=== PATIENT | female | born 1950 | race African-American/Black ===

== ENCOUNTER 2017-07-07 10:55 | Inpatient (IN) | payer MEDICARE ==
[~2017-07-07] VITALS: Ht 162.6 cm; Wt 71.3 kg
[~2017-07-07 10:55] MED LIST: ASPI81TA82 PO; ATOR40TA49 PO; CIPR1TAB50 PO; DOCU1CAP39 PO; LEVEMIR SQ; LISI-360 PO; NOVOLOGSS SQ; SYNT88TA PO; TIMO0.5S29 EACH EYE
[2017-07-07 10:57] VITALS: BP 193/84; PULSE 93; RESP 16; TEMP 98.4; O2SAT 100
[2017-07-07] MEDS ORDERED: SODIUM CHLORIDE 0.9% FLUSH 10 ML FLUSH IVF PRN (11:30)
[2017-07-07 12:18] LABS: AUTOMATED NEUTROPHIL # 3.3 TH/MM3 (1.8-7.7); BASOPHIL % 0.7 % (0.0-2.0); EOSINOPHIL # 0.2 TH/MM3 (0-0.4); EOSINOPHIL % 3.7 % (0.0-4.0); HEMATOCRIT 34.4 % (35.0-46.0); HEMOGLOBIN 11.5 GM/DL (11.6-15.3); LYMPH % 28.1 % (9.0-44.0); LYMPHOCYTE # 1.5 TH/MM3 (1.0-4.8); MEAN CELL VOLUME 92.3 FL (80.0-100.0); MEAN CORPUSCULAR HEMOGLOBIN 30.8 PG (27.0-34.0); MEAN CORPUSCULAR HGB CONC 33.4 % (32.0-36.0); MONO % 4.8 % (0.0-8.0); MONOCYTE # 0.3 TH/MM3 (0-0.9); NEUT % 62.7 % (16.0-70.0); PLATELET COUNT 142 TH/MM3 (150-450); RED BLOOD COUNT 3.73 MIL/MM3 (4.00-5.30); RED CELL DISTRIBUTION WIDTH 14.4 % (11.6-17.2); WHITE BLOOD COUNT 5.3 TH/MM3 (4.0-11.0)
[2017-07-07 12:26] LABS: PROTHROMBIN TIME - PATIENT 10.5 SEC (9.8-11.6)
--- NOTE | 2017-07-07 12:34 | RADRPT ---
EXAM DATE/TIME: 07/07/2017 12:12 [facility] COMPARISON: MRI BRAIN W/O CONTRAST, September 07, 2014, 16:05. CT BRAIN W/O CONTRAST, September 07, 2014, 6:34. INDICATIONS : Increasing slurred speech. History of cerebral vascular accident 2015 involving the left parietal lob e. RADIATION DOSE: 36.48 CTDIvol (mGy) MEDICAL HISTORY : Cerebrovascular disease. Congestive heart failure. Hypertension.Pancreatitis, Diabetes.CVA SURGICAL HISTORY : Tubal ligation. ENCOUNTER: Initial ACUITY: 3 days PAIN SCALE: 0/10 LOCATION: cranial TECHNIQUE: Multiple contiguous axial images were obtained of the head. Using automated exposure control and adj ustment of the mA and/or kV according to patient size, radiation dose was kept as low as reasonably a chievable to obtain optimal diagnostic quality images. DICOM format image data is available electro nically for review and comparison. FINDINGS: ` There is a focal area of decreased attenuation are noted involving the posterior right frontal lobe and anterior parietal lobe which appears new from the prior study. Patchy periventricular white matter lucencies are noted. There is mild to moderate atrophic change. Dense calcification is noted a long the anterior [place]. The posterior fossa and brainstem remain unremarkable. Ventricular system is within normal limits. Bone windows demonstrate no underlying abnormality. CONCLUSION: 1. New area decreased attenuation involving the right posterior frontal and anterior parietal lobe mo st consistent with edema which could be secondary to infarction. MRI is recommended. 2. No evidence of hemorrhage or mass effect. 3. Chronic white matter changes. Tristen Sandoval MD on July 07, 2017 at 12:22 Board Certified Radiologist. This report was verified electronically.
[2017-07-07 12:39] LABS: ALKALINE PHOSPHATASE 65 U/L (45-117); TOTAL BILIRUBIN ADULT 0.6 MG/DL (0.2-1.0); TOTAL PROTEIN 8.3 GM/DL (6.4-8.2)
[2017-07-07 12:48] LABS: ALBUMIN 4.2 GM/DL (3.4-5.0); ALT (GPT) 34 U/L (10-53); AST (GOT) 38 U/L (15-37); BICARBONATE 27.8 MEQ/L (21.0-32.0); BLOOD UREA NITROGEN 18 MG/DL (7-18); CALCIUM 8.8 MG/DL (8.5-10.1); CHLORIDE 105 MEQ/L (98-107); GLOMERULAR FILTRATION RATE 42 ML/MIN (>89); GLUCOSE,RANDOM 78 MG/DL (74-106); SODIUM (NA) 139 MEQ/L (136-145)
--- NOTE | 2017-07-07 12:58 | PD ---
HPI Chief Complaint: Neuro Symptoms/ Deficits Time Seen by Provider: 11:10 Travel History International Travel<30 days: No Contact w/Intl Traveler<30days: No Traveled to known affect area: No History of Present Illness HPI This is a 67-year-old female who has a history of a stroke in the past and is on Eliquis who presents to the emergency department with difficulty speaking that has been going on for about 3 days. She does not remember exactly when it started but she feels like her speech is slurred and she is having more difficulty getting her words out. Her has noticed a difference in her speech as well. Symptoms are moderate severity, constant, with no associated numbness or weakness and she has no difficulty walking. She did have speech difficulties following her last stroke. PFSH Past Medical History Hx Anticoagulant Therapy: Yes (ELIQUIS) Arthritis: Yes (LEFT KNEE, RIGHT SHOULDER.) Asthma: No Autoimmune Disease: No Blood Disorders: No Heart Rhythm Problems: No Cancer: No Cardiovascular Problems: No High Cholesterol: Yes Chemotherapy: No Chest Pain: Yes Congestive Heart Failure: Yes COPD: No Cerebrovascular Accident: Yes Coronary Artery Disease: Yes Diabetes: Yes Diminished Hearing: No Endocrine: Yes GERD: No Glaucoma: No Genitourinary: No Headaches: No Hepatitis: No Hiatal Hernia: No Hypertension: Yes Immune Disorder: No Kidney Stones: No Musculoskeletal: Yes (ARTHRITIS) Neurologic: Yes (CVA) Psychiatric: No Reproductive: No Respiratory: No Immunizations Current: No Myocardial Infarction: No Pancreatitis: Yes Radiation Therapy: No Renal Failure: No Seizures: No Sickle Cell Disease: No Sleep Apnea: No Thyroid Disease: Yes Triglycerides - High: Yes Ulcer: No PNEUMOCCOCAL Vaccine (Year): 2 Menopausal: Yes : 3 Para: 3 Miscarriage: 0 : 0 Tubal Ligation: Yes (1981) Past Surgical History Abdominal Surgery: Yes AICD: No Arteriovenous Shunt: No Cardiac Surgery: No Ear Surgery: No Endocrine Surgery: No Eye Surgery: No Genitourinary Surgery: No Gynecologic Surgery: No Insulin Pump: No Joint Replacement: No Oral Surgery: No Pacemaker: No Thoracic Surgery: No Social History Alcohol Use: No Tobacco Use: No Substance Use: No Allergies-Medications (Allergen,Severity, Reaction): Coded Allergies: latanoprost (Unverified Allergy, Severe, Swelling, 07/07/17) house dust (Unverified Allergy, Mild, CONGESTION, SNEEZING, 07/07/17) pollen extracts (Unverified Allergy, Mild, CONGESTION, SNEEZING, 07/07/17) Reported Meds & Prescriptions Reported Meds & Active Scripts Active Novolog Insulin Supplemental Scale (Insulin Aspart) 100 /Ml Inj 2-12 Units SQ TIDACHS Max dose at bedtime:( )units; sugars less than 70, (0)units; sugars 150-199, (2)units; sugars 200-249, (4)units; sugars 250-299,(7)units; sugars 300-349, (10)units; sugars greater than 349, (12)units Levemir Insulin (Insulin Detemir) 100 Units/Ml Inj 10 Units SQ DAILY 30 Days Levemir Insulin (Insulin Detemir) 100 Units/Ml Inj 10 Units SQ HS 30 Days Lipitor 40 Mg Tab (Atorvastatin Calcium) 40 Mg Tab 40 Mg PO HS 30 Days Colace 100 Mg Cap (Docusate Sodium) 100 Mg Cap 100 Mg PO BID 14 Days Cipro (Ciprofloxacin HCl) 250 Mg Tab 250 Mg PO Q12 5 Days Reported Aspir-81 (Aspirin) 81 Mg Tab 81 Mg PO DAILY Timolol Maleate 0.5 % Effie 1 Drop EACH EYE BID Lisinopril 10 mg (Lisinopril) 10 Mg Tab 5 Mg PO DAILY Synthroid (Levothyroxine Sodium) 88 Mcg Tab 125 Mcg PO DAILY Review of Systems Except as stated in HPI: all other systems reviewed are Neg Physical Exam Narrative GENERAL:Well appearing, no acute distress SKIN: Focused skin assessment warm and dry. HEAD: Atraumatic. Normocephalic. EYES: Pupils equal and round. No injection or drainage. ENT: Moist mucous membranes NECK: Trachea midline. CARDIOVASCULAR: Regular rate and rhythm. No murmur appreciated. RESPIRATORY: Clear to auscultation. Breath sounds equal bilaterally. GASTROINTESTINAL: Abdomen soft, non-tender, nondistended. MUSCULOSKELETAL: No obvious deformities. NEUROLOGICAL: Awake and alert. No obvious cranial nerve deficits. Moving all extremities. Moderate dysarthria, mild expressive aphasia. No visual field deficits. PSYCHIATRIC: Appropriate mood and affect; insight and judgment normal. Data Data Last Documented VS Vital Signs Date Time Temp Pulse Resp B/P (MAP) Pulse Ox O2 Delivery O2 Flow Rate FiO2 07/07/17 11:59 Room Air 07/07/17 10:57 98.4 93 16 100 Orders Orders Electrocardiogram (07/07/17 11:18) Prothrombin Time / Inr (Pt) (07/07/17 11:18) Act Partial Throm Time (Ptt) (07/07/17 11:18) Comprehensive Metabolic Panel (07/07/17 11:18) Ua Includes Microscopic (07/07/17 11:18) Ct Brain W/O Iv Contrast(Rout) (07/07/17 11:18) Ecg Monitoring (07/07/17 11:18) Iv Access Insert/Monitor (07/07/17 11:18) Oximetry (07/07/17 11:18) Sodium Chloride 0.9% Flush (Ns Flush) (07/07/17 11:30) Complete Blood Count With Diff (07/07/17 11:53) Labs Laboratory Tests Test 07/07/17 11:40 White Blood Count 5.3 TH/MM3 Red Blood Count 3.73 MIL/MM3 Hemoglobin 11.5 GM/DL Hematocrit 34.4 % Mean Corpuscular Volume 92.3 FL Mean Corpuscular Hemoglobin 30.8 PG Mean Corpuscular Hemoglobin Concent 33.4 % Red Cell Distribution Width 14.4 % Platelet Count 142 TH/MM3 Mean Platelet Volume 11.0 FL Neutrophils (%) (Auto) 62.7 % Lymphocytes (%) (Auto) 28.1 % Monocytes (%) (Auto) 4.8 % Eosinophils (%) (Auto) 3.7 % Basophils (%) (Auto) 0.7 % Neutrophils # (Auto) 3.3 TH/MM3 Lymphocytes # (Auto) 1.5 TH/MM3 Monocytes # (Auto) 0.3 TH/MM3 Eosinophils # (Auto) 0.2 TH/MM3 Basophils # (Auto) 0.0 TH/MM3 CBC Comment DIFF FINAL Differential Comment Prothrombin Time 10.5 SEC Prothromb Time International Ratio 1.0 RATIO Activated Partial Thromboplast Time 28.3 SEC Blood Urea Nitrogen 18 MG/DL Creatinine 1.50 MG/DL Random Glucose 78 MG/DL Total Protein 8.3 GM/DL Albumin 4.2 GM/DL Calcium Level 8.8 MG/DL Alkaline Phosphatase 65 U/L Aspartate Amino Transf (AST/SGOT) 38 U/L Alanine Aminotransferase (ALT/SGPT) 34 U/L Total Bilirubin 0.6 MG/DL Sodium Level 139 MEQ/L Potassium Level 4.8 MEQ/L Chloride Level 105 MEQ/L Carbon Dioxide Level 27.8 MEQ/L Anion Gap 6 MEQ/L Estimat Glomerular Filtration Rate 42 ML/MIN MDM Medical Decision Making Medical Screen Exam Complete: Yes Emergency Medical Condition: Yes Interpretation(s) Afebrile, mild tachycardia, hypertensive EKG: Normal sinus rhythm, left axis deviation Anemia Mild renal insufficiency CT of the head demonstrates a new area of decreased attenuation in the right posterior frontal and anterior parietal lobe suspicious for infarction. Differential Diagnosis Hemorrhagic stroke, ischemic stroke, urinary tract infection, dehydration, mass Narrative Course This is a 67-year-old female who presents to the emergency department with worsening speech difficulty. She was placed on a monitor and an IV was established. Labs are reassuring. CT demonstrates findings consistent with a likely new infarction. She is not a TPA candidate as her symptoms have been going on for several days. Patient will be admitted for neurologic evaluation. Diagnosis Primary Impression: Acute CVA (cerebrovascular accident) Admitting Information Admitting Physician Requests: Admit Stephanie Burnett MD Jul 07, 2017 12:58
[2017-07-07] MEDS ORDERED: ACETAMINOPHEN 325 MG TAB PO PRN (13:15)
[2017-07-07] MEDS ORDERED: ONDANSETRON HCL 4 MG/2 ML VIAL IVP PRN (13:15)
[2017-07-07] MEDS ORDERED: SODIUM CHLORIDE 0.9% FLUSH 10 ML FLUSH IV FLUSH PRN (13:15)
[2017-07-07] MEDS ORDERED: MAGNESIUM HYDROXIDE SUSP 30 ML CUP PO PRN (13:15)
[2017-07-07] MEDS ORDERED: NALOXONE HCL 0.4 MG/ML AMP IV PUSH PRN (13:15)
[2017-07-07] MEDS ORDERED: GLUCAGON 1 MG/ML VIAL OTHER PRN (13:30)
[2017-07-07] MEDS ORDERED: DEXTROSE 50% IN WATER 50 ML VIAL(D50) IV PUSH PRN (13:30)
[2017-07-07] MEDS ORDERED: ENALAPRILAT 1.25 MG/ML VIAL IV PUSH PRN (13:30)
--- NOTE | 2017-07-07 13:45 | RADRPT ---
EXAM DATE/TIME: 07/07/2017 13:23 [facility] COMPARISON: BA SWALLOW W/SPEECH PATHOLOGY, September 09, 2014, 0:00. INDICATIONS : Possible stroke, slurred speech 3 days. MEDICAL HISTORY : Stroke. SURGICAL HISTORY : None. ENCOUNTER: Initial ACUITY: 3 days PAIN SCORE: 0/10 LOCATION: Bilateral chest FINDINGS: A single view of the chest demonstrates the lungs to be symmetrically aerated without evidence of mas s, infiltrate or effusion. The cardiomediastinal contours are unremarkable. Osseous structures are intact. CONCLUSION: 1. Normal examination. Keenan Sprague MD on July 07, 2017 at 13:42 Board Certified Radiologist. This report was verified electronically.
[2017-07-07 14:15] VITALS: BP 126/80; PULSE 86; RESP 17; O2SAT 98
[2017-07-07] MEDS: 1/2 NS + KCL 20 MEQ INJ 1,000 ML IV SCH ×2 (14:16→19:43)
[2017-07-07 14:31] LABS: BACTERIA, URINE RARE /hpf; BILIRUBIN, URINE NEG (NEG); BLOOD, URINE NEG (NEG); GLUCOSE,URINE NEG (NEG); KETONE, URINE NEG (NEG); NITRITE,URINE NEG (NEG); PH, URINE 5.5 (5.0-8.5); SQUAMOUS EPITHELIAL CELL URINE 1 /hpf (0-5); URINE COLOR LIGHT-YELLOW (YELLW/STRAW); URINE LEUKOCYTE ESTERASE MOD (NEG)
[2017-07-07] MEDS ORDERED: ATOR80TA45 PO (14:56)
--- NOTE | 2017-07-07 14:59 | HHI.HP ---
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 Patient presents the emergency department today with complaints of slurred speech 3 days. 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 Patient reports she has been compliant with her Eliquis. Patient reports that since Monday she has been having slurred speech and difficulty with word finding. Other than the speech difficulties patient reports she feels to be in her normal state of health. Patient denies any focal weakness, headache or difficulty swallowing. Patient initially went to her primary care provider's office and was instructed to go to the emergency department patient refused EVAC and drive herself to the ER. Patient also denies shortness of breath chest pain nausea vomiting diarrhea constipation fevers or chills. Blood glucose 78 on arrival to the ER. Review of Systems Constitutional: DENIES: Fatigue, Fever, Chills Eyes: DENIES: Blurred vision, Diplopia, Vision loss Respiratory: DENIES: Cough, Sputum production, Shortness of breath Cardiovascular: DENIES: Chest pain, Dyspnea on Exertion, Lower Extremity Edema Gastrointestinal: DENIES: Abdominal pain, Constipation, Diarrhea, Nausea, Vomiting Neurologic: COMPLAINS OF: Speech Problems, DENIES: Abnormal gait, Headache, Localized weakness Psychiatric: DENIES: Anxiety, Confusion, Depression Past Family Social History Past Medical History chronic kidney disease stage 3, diabetes mellitus type 2, embolic CVA, hypothyroidism, hyperlipidemia, sickle cell trait Past Surgical History Anterior chamber laser left eye, breast biopsy, total abdominal hysterectomy Reported Medications Novolog Insulin Supplemental Scale (Insulin Aspart) 100 /Ml Inj 2-12 Units SQ TIDACHS Max dose at bedtime:( )units; sugars less than 70, (0)units; sugars 150-199, (2)units; sugars 200-249, (4)units; sugars 250-299,(7)units; sugars 300-349, (10)units; sugars greater than 349, (12)units Levemir Insulin (Insulin Detemir) 100 Units/Ml Inj 10 Units SQ DAILY 30 Days Levemir Insulin (Insulin Detemir) 100 Units/Ml Inj 10 Units SQ HS 30 Days Lipitor 40 Mg Tab (Atorvastatin Calcium) 40 Mg Tab 40 Mg PO HS 30 Days Colace 100 Mg Cap (Docusate Sodium) 100 Mg Cap 100 Mg PO BID 14 Days Cipro (Ciprofloxacin HCl) 250 Mg Tab 250 Mg PO Q12 5 Days Aspir-81 (Aspirin) 81 Mg Tab 81 Mg PO DAILY Timolol Maleate 0.5 % Effie 1 Drop EACH EYE BID Lisinopril 10 mg (Lisinopril) 10 Mg Tab 5 Mg PO DAILY Synthroid (Levothyroxine Sodium) 88 Mcg Tab 125 Mcg PO DAILY Allergies: Coded Allergies: latanoprost (Unverified Allergy, Severe, Swelling, 07/07/17) house dust (Unverified Allergy, Mild, CONGESTION, SNEEZING, 07/07/17) pollen extracts (Unverified Allergy, Mild, CONGESTION, SNEEZING, 07/07/17) Active Ordered Medications Current Medications Medications (Trade) Dose Ordered Sig/Jessie Route Start Time Stop Time Status Last Admin (NS Flush) 2 ml UNSCH PRN IV FLUSH 07/07/17 13:15 (NS Flush) 2 ml BID IV FLUSH 07/07/17 21:00 (Tylenol) 650 mg Q4H PRN PO 07/07/17 13:15 (Zofran Inj) 4 mg Q6H PRN IVP 07/07/17 13:15 (Narcan Inj) 0.4 mg UNSCH PRN IV PUSH 07/07/17 13:15 (Milk Of Magnesia Liq) 30 ml Q12H PRN PO 07/07/17 13:15 (Vasotec Inj) 1.25 mg Q4H PRN IV PUSH 07/07/17 13:30 Potassium Chloride/Sodium Chloride 1,000 ml @ 84 mls/hr [id number] IV 07/07/17 14:00 07/08/17 13:48 07/07/17 14:16 (NovoLOG SUPPLEMENTAL SCALE) 1 ACHS SLIDING SCALE SQ 07/07/17 17:00 (D50w (Vial) Inj) 50 ml UNSCH PRN IV PUSH 07/07/17 13:30 (Glucagon Inj) 1 mg UNSCH PRN OTHER 07/07/17 13:30 Family History Non-contributory Social History lives with Former tobacco user Denies current EtOH use Denies illicit drug use Physical Exam Vital Signs Vital Signs Date Time Temp Pulse Resp B/P (MAP) Pulse Ox O2 Delivery O2 Flow Rate FiO2 07/07/17 14:15 86 17 126/80 (95) 98 Room Air 07/07/17 11:59 Room Air 07/07/17 11:59 Room Air 07/07/17 10:57 98.4 93 16 193/84 (120) 100 Physical Exam GENERAL: This is a well-nourished, well-developed patient SKIN: No rashes, ecchymoses or lesions. Cool and dry. HEAD: Atraumatic. Normocephalic. No temporal or scalp tenderness. EYES: Extraocular motions intact. No scleral icterus. No injection or drainage. CARDIOVASCULAR: Regular rate and rhythm RESPIRATORY: Clear to auscultation. Breath sounds equal bilaterally. GASTROINTESTINAL: Abdomen soft, non-tender, nondistended. MUSCULOSKELETAL: Extremities without clubbing, cyanosis, or edema. No joint tenderness, effusion, or edema noted. No calf tenderness. Negative Homans sign bilaterally. NEUROLOGICAL: Awake and alert. Motor and sensory grossly within normal limits. 4 /5 right upper and lower extremities. Five out of 5 muscle strength in left upper and lower extremities. slurred speech Laboratory Laboratory Tests Test 07/07/17 11:40 07/07/17 14:00 White Blood Count 5.3 Red Blood Count 3.73 Hemoglobin 11.5 Hematocrit 34.4 Mean Corpuscular Volume 92.3 Mean Corpuscular Hemoglobin 30.8 Mean Corpuscular Hemoglobin Concent 33.4 Red Cell Distribution Width 14.4 Platelet Count 142 Mean Platelet Volume 11.0 Neutrophils (%) (Auto) 62.7 Lymphocytes (%) (Auto) 28.1 Monocytes (%) (Auto) 4.8 Eosinophils (%) (Auto) 3.7 Basophils (%) (Auto) 0.7 Neutrophils # (Auto) 3.3 Lymphocytes # (Auto) 1.5 Monocytes # (Auto) 0.3 Eosinophils # (Auto) 0.2 Basophils # (Auto) 0.0 CBC Comment DIFF FINAL Differential Comment Prothrombin Time 10.5 Prothromb Time International Ratio 1.0 Activated Partial Thromboplast Time 28.3 Blood Urea Nitrogen 18 Creatinine 1.50 Random Glucose 78 Total Protein 8.3 Albumin 4.2 Calcium Level 8.8 Alkaline Phosphatase 65 Aspartate Amino Transf (AST/SGOT) 38 Alanine Aminotransferase (ALT/SGPT) 34 Total Bilirubin 0.6 Sodium Level 139 Potassium Level 4.8 Chloride Level 105 Carbon Dioxide Level 27.8 Anion Gap 6 Estimat Glomerular Filtration Rate 42 Urine Color LIGHT-YELLOW Urine Turbidity CLEAR Urine pH 5.5 Urine Specific [place] 1.006 Urine Protein NEG Urine Glucose (UA) NEG Urine Ketones NEG Urine Occult Blood NEG Urine Nitrite NEG Urine Bilirubin NEG Urine Urobilinogen LESS THAN 2.0 Urine Leukocyte Esterase MOD Urine RBC LESS THAN 1 Urine WBC 8 Urine Squamous Epithelial Cells 1 Urine Bacteria RARE Microscopic Urinalysis Comment CATH Result Diagram: 07/07/17 1140 07/07/17 1140 Imaging Last Impressions Chest X-Ray 07/07/17 1312 Signed Impressions: Service Date/Time: Friday, July 07, 2017 13:23 - CONCLUSION: 1. Normal examination. Keenan Sprague MD Head CT 07/07/17 1118 Signed Impressions: Service Date/Time: Friday, July 07, 2017 12:12 - CONCLUSION: 1. New area decreased attenuation involving the right posterior frontal and anterior parietal lobe most consistent with edema which could be secondary to infarction. MRI is recommended. 2. No evidence of hemorrhage or mass effect. 3. Chronic white matter changes. MD Sury Smithi VTE Risk Assessment Caprini VTE Risk Assessment: No/Low Risk (score <= 1) Caprini Risk Assessment Model Point Value = 1 Point Value = 2 Point Value = 3 Point Value = 5 Age 41-60 Minor surgery BMI > 25 kg/m2 Swollen legs Varicose veins or History of unexplained or recurrent spontaneous Oral contraceptives or hormone replacement Sepsis (< 1 month) Serious lung disease, including pneumonia (< 1 month) Abnormal pulmonary function Acute myocardial infarction Congestive heart failure (< 1 month) History of inflammatory bowel disease Medical patient at bed rest Age 61-74 Arthroscopic surgery Major open surgery (> 45 min) Laparoscopic surgery (> 45 min) Malignancy Confined to bed (> 72 hours) Immobilizing plaster cast Central venous access Age >= 75 History of VTE Family history of VTE Factor V Leiden Prothrombin [id number] Lupus anticoagulant Anticardiolipin antibodies Elevated serum homocysteine Heparin-induced thrombocytopenia Other congenital or acquired thrombophilia Stroke (< 1 month) Elective arthroplasty Hip, pelvis, or leg fracture Acute spinal cord injury (< 1 month) Prophylaxis Regimen Total Risk Factor Score Risk Level Prophylaxis Regimen 0-1 Low Early ambulation 2 Moderate Order ONE of the following: *Sequential Compression Device (SCD) *Heparin 5000 units SQ BID 3-4 Higher Order ONE of the following medications: *Heparin 5000 units SQ TID *Enoxaparin/Lovenox 40 mg SQ daily (WT < 150 kg, CrCl > 30 mL/min) *Enoxaparin/Lovenox 30 mg SQ daily (WT < 150 kg, CrCl > 10-29 mL/min) *Enoxaparin/Lovenox 30 mg SQ BID (WT < 150 kg, CrCl > 30 mL/min) AND/OR *Sequential Compression Device (SCD) 5 or more Highest Order ONE of the following medications: *Heparin 5000 units SQ TID (Preferred with Epidurals) *Enoxaparin/Lovenox 40 mg SQ daily (WT < 150 kg, CrCl > 30 mL/min) *Enoxaparin/Lovenox 30 mg SQ daily (WT < 150 kg, CrCl > 10-29 mL/min) *Enoxaparin/Lovenox 30 mg SQ BID (WT < 150 kg, CrCl > 30 mL/min) AND *Sequential Compression Device (SCD) Assessment and Plan Problem List: (1) CVA (cerebral vascular accident) ICD Codes: I63.9 - Cerebral infarction, unspecified Plan: This is a 67-year-old female patient with past medical history which includes chronic kidney disease stage 3, diabetes mellitus type 2, embolic CVA, hypothyroidism, hyperlipidemia, sickle cell trait. Patient presents the emergency department today with complaints of slurred speech 3 days. 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 - CT reviewed and reveals new area of decreased attenuation involving the right posterior frontal and anterior parietal lobe was consistent with edema which could be secondary to infarction. MRI is recommended. No evidence of hemorrhage or mass effect. 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 Assessment and plan formulated with Carola Smith PA-C. I agree with the above. Physician Certification 2 Midnight Certification Type: Admission for Inpatient Services Order for Inpatient Services The services are ordered in accordance with Medicare regulations or non- Medicare payer requirements, as applicable. In the case of services not specified as inpatient-only, they are appropriately provided as inpatient services in accordance with the 2-midnight benchmark. Estimated LOS (days): 2 days is the estimated time the patient will need to remain in the hospital, assuming treatment plan goals are met and no additional complications. Post-Hospital Plan: Not yet determined Carola Smith Jul 07, 2017 14:59 Prince Kaba DO Jul 11, 2017 23:15
--- NOTE | 2017-07-07 15:37 | RADRPT ---
EXAM DATE/TIME: 07/07/2017 15:08 [facility] COMPARISON: No previous studies available for comparison. INDICATIONS : Slurred speech. MEDICAL HISTORY : Hypertension. Diabetes mellitus type 2. CVA. SURGICAL HISTORY : Rotator cuff, left. Tubal ligation. ENCOUNTER: Initial ACUITY: 1 day PAIN SCORE: 0/10 LOCATION: cranial Please note a normal MRA of the brain does not entirely exclude the possibility of a small aneurysm, nor the possibility of distal intracranial vessel disease. TECHNIQUE: 3D time of flight MRA was performed. Source images, multiplanar STS MIP, and 3D volume MIP reconstru ctions were reviewed. FINDINGS: There is excellent visualization of the major intracranial arteries out to the second-order branch ve ssels. There is no evidence for aneurysm, vessel truncation or stenosis, and no evidence for vascula r malformation. The right posterior cerebral artery arises in fashion. CONCLUSION: No acute [place] vascular findings. Martinez Goode MD on July 07, 2017 at 15:33 Board Certified Radiologist. This report was verified electronically.
--- NOTE | 2017-07-07 16:11 | RADRPT ---
EXAM DATE/TIME: 07/07/2017 15:20 [facility] COMPARISON: US CAROTID ARTERIES, September 06, 2014, 19:40. INDICATIONS : Cerebrovascular accident. MEDICAL HISTORY : Congestive heart failure. Hypercholesterolemia. Hypertension. Thyroid disease. Hearing loss. Cerebrov ascular accident. Coronary artery disease. Anticoagulant therapy. Hyperlipidemia. Pancreatitis. Pregn calixto. Arthritis. Diabetes. Measles. Blood transfusion. SURGICAL HISTORY : Tubal ligation. Left shoulder surgery. ENCOUNTER: Initial ACUITY: 3 days PAIN SCORE: 0/10 LOCATION: Bilateral neck PEAK SYSTOLIC VELOCITIES (cm/sec): ICA/CCA RATIO: Right: 1.0 Left: 0.7 ICA: Right: 78 Left: 78 CCA: Right: 74 Left: 108 ECA: Right: 48 Left: 87 VERTEBRAL: Right: 69 antegrade Left: 46 antegrade Elevated flow velocities and ICA/CCA ratios have been found to correlate with increased degrees of vessel stenosis, calculated as percentage of diameter relative to a normal segment of distal ICA/CCA FINDINGS: RIGHT CAROTID: No significant stenosis is visualized. The waveforms are within normal limits. LEFT CAROTID: There is very mild atherosclerotic plaque in the carotid bulb. No significant stenosis is visualized. The waveforms are within normal limits. VERTEBRAL ARTERIES: Antegrade flow is seen in both vertebral arteries. MISCELLANEOUS: None. CONCLUSION: 1. No significant atherosclerotic disease or stenosis is identified within either internal carotid ar colette. 2. There is antegrade flow within both vertebral arteries. Martinez Argueta MD on July 07, 2017 at 16:08 Board Certified Radiologist. This report was verified electronically.
[2017-07-07 16:19] VITALS: BP 132/63; PULSE 84; RESP 18; O2SAT 100
--- NOTE | 2017-07-07 16:21 | RADRPT ---
EXAM DATE/TIME: 07/07/2017 15:08 [place] COMPARISON: MRI BRAIN W/O CONTRAST, September 06, 2014, 17:24. CT BRAIN W/O CONTRAST, July 07, 2017, 12:12. INDICATIONS : Slurred speech. MEDICAL HISTORY : Hypertension. Diabetes mellitus type 2. SURGICAL HISTORY : Rotator cuff, left. Tubal ligation. ENCOUNTER: Initial ACUITY: 1 day PAIN SCORE: 0/10 LOCATION: cranial TECHNIQUE: Routine protocol without contrast FINDINGS: Again noted is dispersed microvascular deep white matter periventricular demyelinization with flair a bnormalities T2-weighted abnormality in these regions. Additionally there is a similar area in the gr ay-white matter cortex of the left posterior parietal region over a 1/2 cm region. The new area seen on CT scan a low density has a definite diffusion abnormality involving senior-white matter posterior r ight frontal parietal region consistent with an acute stroke. CONCLUSION: Findings correlative with CT scan acute stroke diffusion abnormality in the right posterior frontal p arietal region involving senior-white matter. There may be a second faint area slightly posterior to th is in the parietal region of senior-white matter junction subtle infarct. Venkatesh Joseph MD on July 07, 2017 at 16:14 Board Certified Radiologist. This report was verified electronically.
[2017-07-07 17:31] VITALS: BP 146/67; PULSE 83; RESP 19; TEMP 97.8; O2SAT 97
[2017-07-07] MEDS: INSULIN ASPART SUPPLEMENTAL SCALE SQ SCH ×2 (17:45→21:00)
[2017-07-07] MEDS ORDERED: WARFARIN SOD 5 MG TAB PO SCH (20:00)
[2017-07-07 21:00] VITALS: BP 140/61; PULSE 86; RESP 17; TEMP 97.1; O2SAT 99
[2017-07-07] MEDS: SODIUM CHLORIDE 0.9% FLUSH 10 ML FLUSH IV FLUSH SCH (21:00)
--- NOTE | 2017-07-07 21:04 | MB ---
cc: RAFFI CLIFFORD MD DATE OF CONSULTATION 07/07/17 A 67-year-old right-handed woman with hypertension, insulin diabetes, hypercholesterolemia, 81 of aspirin, chronic renal insufficiency takes Eliquis twice a day, hypothyroidism who had a stroke in 2014 which affected her speech. She did not get quite back to normal but pretty good and then since last Monday she developed increased slurred speech and came into the hospital today. REVIEW OF SYSTEMS She denies any known A, fib, hepatic, pulmonary disease, lupus, ulcer, cancer, seizure. SOCIAL HISTORY Not a smoker or drinker, lives with her . FAMILY HISTORY Positive for cancer, negative for seizure or stroke. She was seen by Dr. Werner in 2015 lightheadedness, slurred speech, facial droop, multiple episodes. She got TPA. Evidently, she has been taking the Eliquis at home. She says she has not missed any doses. MEDICATIONS At home, 1. Synthroid. 2. Lisinopril. 3. Timolol 4. 81 of aspirin. 5. Cipro. 6. Colace. 7. Lipitor 8. Insulin. 9. Unfortunately Eliquis dose is not listed in the ER notes. There is some history of sickle cell trait. I did however talk to her and in fact she was on Eliquis 5 mg twice a day and appears to have been taking her meds regularly. On exam afebrile 83, 19. Unfortunately there is no EKG printed on the chart. No tele strips on the chart and the EKG on the computer says sinus rhythm, however. PHYSICAL EXAMINATION 146/67, 19, 83 afebrile. Highest blood pressure 193/84. There were no carotid bruits. Heart was regular rhythm. I did not detect a murmur. Pupils are equal. Visual quintana are full. Extraocular movements intact without nystagmus. Face moves symmetrically with normal sensation. Tongue was midline. There is no drift. She had normal strength in upper and lower extremities bilaterally. DTRs are trace throughout. Toes are downgoing bilaterally. Pinprick is intact throughout. Speech is slurred but not aphasic, slightly dysarthric. LABORATORY DATA CBC is essentially normal. Hepatitis screen has been negative in the past. She had a normal IPEP in the past. Rheumatoid factor, LIZETTE all normal in the past. Thyroid antibodies have been quite high in the past. UA on admission here - moderate leuko esterase, eight white cells. Coags were normal. Basic metabolic profile creatinine 1.5. LFTs essentially normal. She had negative SPEP in the past. LDL cholesterol was normal in 2014. B12 was normal in 2012. Her sed rate was normal in 2003. IMAGING STUDIES MRI of the brain shows an acute right MCA infarct and an old left MCA infarct. There is a little bit of blood change on the old left one. CT scan showed the new right stroke. No evidence for hemorrhage. Carotid ultrasound negative. She had an MRA [place] in 2014 that was normal. She had an echocardiogram in 2014 that showed an ejection fraction of 45-50%, diffuse hypokinesis. No mitral stenosis was noted. No aortic stenosis was noted. Left atrial size 31. No Holter monitor noted. IMPRESSION Multiple infarcts bilateral now. There is a new right MCA infarct, an old left MCA infarct and an old right posterior MCA infarct. At this point, I think since she failed the Eliquis options will be Pradaxa or Coumadin. I think considering the size of this new infarct, we will stop the Eliquis and start her on Coumadin. She needs a speech evaluation before she eats anymore. MD JODEE Castro/ /6:34 PM /8:25 PM
[2017-07-07] MEDS: HEPARIN SODIUM - SQ 10,000 UNITS/ML VIAL SQ SCH (22:08)
[2017-07-08] VITALS (7 sets, daily range): BP systolic 134–151; BP diastolic 67–70; PULSE 80–89; RESP 18; TEMP 97.4–98.8; O2SAT 98–100
[2017-07-08 06:23] LABS: AUTOMATED NEUTROPHIL # 2.3 TH/MM3 (1.8-7.7); BASOPHIL % 0.9 % (0.0-2.0); EOSINOPHIL # 0.2 TH/MM3 (0-0.4); EOSINOPHIL % 4.2 % (0.0-4.0); HEMATOCRIT 32.1 % (35.0-46.0); HEMOGLOBIN 10.8 GM/DL (11.6-15.3); LYMPH % 32.2 % (9.0-44.0); LYMPHOCYTE # 1.3 TH/MM3 (1.0-4.8); MEAN CELL VOLUME 91.6 FL (80.0-100.0); MEAN CORPUSCULAR HEMOGLOBIN 30.9 PG (27.0-34.0); MEAN CORPUSCULAR HGB CONC 33.8 % (32.0-36.0); MEAN PLATELET VOLUME 10.7 FL (7.0-11.0); MONO % 5.1 % (0.0-8.0); MONOCYTE # 0.2 TH/MM3 (0-0.9); NEUT % 57.6 % (16.0-70.0); PLATELET COUNT 128 TH/MM3 (150-450); RED BLOOD COUNT 3.51 MIL/MM3 (4.00-5.30); RED CELL DISTRIBUTION WIDTH 13.8 % (11.6-17.2); WHITE BLOOD COUNT 4.1 TH/MM3 (4.0-11.0)
[2017-07-08 06:39] LABS: PROTHROMBIN TIME - PATIENT 10.6 SEC (9.8-11.6)
[2017-07-08 06:46] LABS: BICARBONATE 26.8 MEQ/L (21.0-32.0); CALCIUM 8.6 MG/DL (8.5-10.1); CREATININE 1.34 MG/DL (0.50-1.00)
[2017-07-08 06:57] LABS: CHOLESTEROL/ HDL RATIO 3.45 RATIO; FREE T4 1.22 NG/DL (0.76-1.46); HDL CHOLESTEROL 37.6 MG/DL (40.0-60.0)
[2017-07-08] MEDS: INSULIN ASPART SUPPLEMENTAL SCALE SQ SCH ×4 (08:00→20:32)
[2017-07-08] MEDS: SODIUM CHLORIDE 0.9% FLUSH 10 ML FLUSH IV FLUSH SCH ×2 (09:00→20:32)
[2017-07-08] MEDS: HEPARIN SODIUM - SQ 10,000 UNITS/ML VIAL SQ SCH ×2 (09:24→20:32)
--- NOTE | 2017-07-08 09:28 | HHI.PR ---
Subjective Remarks sr Objective Vital Signs Date Time Temp Pulse Resp B/P (MAP) Pulse Ox O2 Delivery O2 Flow Rate FiO2 07/08/17 08:00 97.4 80 18 142/67 (92) 100 07/08/17 05:40 97.6 80 18 134/68 (90) 99 07/08/17 00:00 98.8 89 18 139/69 (92) 98 07/07/17 21:00 97.1 86 17 140/61 (87) 99 07/07/17 17:31 97.8 83 19 146/67 (93) 97 07/07/17 16:19 84 18 132/63 (86) 100 Room Air 07/07/17 14:15 86 17 126/80 (95) 98 Room Air 07/07/17 11:59 Room Air 07/07/17 11:59 Room Air 07/07/17 10:57 98.4 93 16 193/84 (120) 100 I/O 07/07/17 07/07/17 07/07/17 07/08/17 07/08/17 07/08/17 07:00 15:00 23:00 07:00 15:00 23:00 Intake Total 0 ml 0 ml Balance 0 ml 0 ml Intake Oral 0 ml 0 ml # Voids 0 1 # Bowel Movements 0 0 Result Diagram: 07/08/17 0608 07/08/17 0608 Objective Remarks 5/5 speech a little clearer Assessment and Plan Assessment and Plan imp failed 5 bid eliquis so now on coumadin bilat cva left old r new us and cow neg can dc when inr 2.0 7.5 coumadin today inr 1.0 oob ok Darion Holm MD Jul 08, 2017 09:28
[2017-07-08] MEDS: DEXT 5%-NACL 0.45% 1000 ML INJ 1,000 ML IV SCH ×2 (09:45→22:17)
[2017-07-08] MEDS ORDERED: PNEUMOCOCCAL POLYVALENT INJ 25 MCG/0.5 ML SYR IM ONE (10:00)
--- NOTE | 2017-07-08 14:11 | HHI.PR ---
Subjective Remarks Patient reports feeling better today Speech is better than yesterday but not yet back to baseline Objective Vitals Vital Signs Date Time Temp Pulse Resp B/P (MAP) Pulse Ox O2 Delivery O2 Flow Rate FiO2 07/08/17 12:00 97.7 83 18 137/68 (91) 100 07/08/17 11:47 84 07/08/17 08:00 97.4 80 18 142/67 (92) 100 07/08/17 05:40 97.6 80 18 134/68 (90) 99 07/08/17 00:00 98.8 89 18 139/69 (92) 98 07/07/17 21:00 97.1 86 17 140/61 (87) 99 07/07/17 17:31 97.8 83 19 146/67 (93) 97 07/07/17 16:19 84 18 132/63 (86) 100 Room Air 07/07/17 14:15 86 17 126/80 (95) 98 Room Air Result Diagram: 07/08/17 0608 07/08/17 1015 Other Results Laboratory Tests Test 07/07/17 11:40 07/07/17 14:00 07/08/17 06:08 07/08/17 10:15 White Blood Count 5.3 TH/MM3 4.1 TH/MM3 Red Blood Count 3.73 MIL/MM3 3.51 MIL/MM3 Hemoglobin 11.5 GM/DL 10.8 GM/DL Hematocrit 34.4 % 32.1 % Mean Corpuscular Volume 92.3 FL 91.6 FL Mean Corpuscular Hemoglobin 30.8 PG 30.9 PG Mean Corpuscular Hemoglobin Concent 33.4 % 33.8 % Red Cell Distribution Width 14.4 % 13.8 % Platelet Count 142 TH/MM3 128 TH/MM3 Mean Platelet Volume 11.0 FL 10.7 FL Neutrophils (%) (Auto) 62.7 % 57.6 % Lymphocytes (%) (Auto) 28.1 % 32.2 % Monocytes (%) (Auto) 4.8 % 5.1 % Eosinophils (%) (Auto) 3.7 % 4.2 % Basophils (%) (Auto) 0.7 % 0.9 % Neutrophils # (Auto) 3.3 TH/MM3 2.3 TH/MM3 Lymphocytes # (Auto) 1.5 TH/MM3 1.3 TH/MM3 Monocytes # (Auto) 0.3 TH/MM3 0.2 TH/MM3 Eosinophils # (Auto) 0.2 TH/MM3 0.2 TH/MM3 Basophils # (Auto) 0.0 TH/MM3 0.0 TH/MM3 CBC Comment DIFF FINAL DIFF FINAL Differential Comment Prothrombin Time 10.5 SEC 10.6 SEC Prothromb Time International Ratio 1.0 RATIO 1.0 RATIO Activated Partial Thromboplast Time 28.3 SEC Blood Urea Nitrogen 18 MG/DL 17 MG/DL Creatinine 1.50 MG/DL 1.34 MG/DL Random Glucose 78 MG/DL 72 MG/DL 168 MG/DL Total Protein 8.3 GM/DL Albumin 4.2 GM/DL Calcium Level 8.8 MG/DL 8.6 MG/DL Alkaline Phosphatase 65 U/L Aspartate Amino Transf (AST/SGOT) 38 U/L Alanine Aminotransferase (ALT/SGPT) 34 U/L Total Bilirubin 0.6 MG/DL Sodium Level 139 MEQ/L 141 MEQ/L Potassium Level 4.8 MEQ/L 5.1 MEQ/L Chloride Level 105 MEQ/L 109 MEQ/L Carbon Dioxide Level 27.8 MEQ/L 26.8 MEQ/L Anion Gap 6 MEQ/L 5 MEQ/L Estimat Glomerular Filtration Rate 42 ML/MIN 48 ML/MIN Troponin I LESS THAN 0.02 NG/ML Urine Color LIGHT-YELLOW Urine Turbidity CLEAR Urine pH 5.5 Urine Specific [place] 1.006 Urine Protein NEG mg/dL Urine Glucose (UA) NEG mg/dL Urine Ketones NEG mg/dL Urine Occult Blood NEG Urine Nitrite NEG Urine Bilirubin NEG Urine Urobilinogen LESS THAN 2.0 MG/DL Urine Leukocyte Esterase MOD Urine RBC LESS THAN 1 /hpf Urine WBC 8 /hpf Urine Squamous Epithelial Cells 1 /hpf Urine Bacteria RARE /hpf Microscopic Urinalysis Comment CATH Triglycerides Level 355 MG/DL Cholesterol Level 130 MG/DL LDL Cholesterol 21 MG/DL HDL Cholesterol 37.6 MG/DL Cholesterol/HDL Ratio 3.45 RATIO Free Thyroxine 1.22 NG/DL Thyroid Stimulating Hormone 3rd Gen 0.462 uIU/ML Imaging Last Impressions Chest X-Ray 07/07/17 1312 Signed Impressions: Service Date/Time: Friday, July 07, 2017 13:23 - CONCLUSION: 1. Normal examination. Keenan Sprague MD Head CT 07/07/17 1118 Signed Impressions: Service Date/Time: Friday, July 07, 2017 12:12 - CONCLUSION: 1. New area decreased attenuation involving the right posterior frontal and anterior parietal lobe most consistent with edema which could be secondary to infarction. MRI is recommended. 2. No evidence of hemorrhage or mass effect. 3. Chronic white matter changes. Tristen Sandoval MD Objective Remarks GENERAL: This is a well-nourished, well-developed patient SKIN: No rashes, ecchymoses or lesions. Cool and dry. HEAD: Atraumatic. Normocephalic. No temporal or scalp tenderness. EYES: Extraocular motions intact. No scleral icterus. No injection or drainage. CARDIOVASCULAR: Regular rate and rhythm RESPIRATORY: Clear to auscultation. Breath sounds equal bilaterally. GASTROINTESTINAL: Abdomen soft, non-tender, nondistended. MUSCULOSKELETAL: Extremities without clubbing, cyanosis, or edema. No joint tenderness, effusion, or edema noted. No calf tenderness. Negative Homans sign bilaterally. NEUROLOGICAL: Awake and alert. Motor and sensory grossly within normal limits. 4 /5 right upper and lower extremities. Five out of 5 muscle strength in left upper and lower extremities. slurred speech A/P Problem List: (1) CVA (cerebral vascular accident) ICD Codes: I63.9 - Cerebral infarction, unspecified Plan: This is a 67-year-old female patient with past medical history which includes chronic kidney disease stage 3, diabetes mellitus type 2, embolic CVA, hypothyroidism, hyperlipidemia, sickle cell trait. Patient presents the emergency department today with complaints of slurred speech 3 days. 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 - CT reviewed and reveals new area of decreased attenuation involving the right posterior frontal and anterior parietal lobe was consistent with edema which could be secondary to infarction. MRI is recommended. No evidence of hemorrhage or mass effect. Chronic white matter changes - MRI Findings correlative with CT scan acute stroke diffusion abnormality in the right posterior frontal parietal region involving senior- white matter. There may be a second faint area slightly posterior to this in the parietal region of senior-white matter junction is subtle infarct - MRA no acute surgical bolus vascular findings - US bilateral carotid arteries no significant atherosclerotic disease or stenosis is identified within either internal carotid artery. There is antegrade flow within both vertebral arteries - echocardiogram pending - continuous telemetry monitoring - Lipid profile reviewed and reveals an LDL of 21 - PT consulted - Speech consulted mechanical soft thin liquids - Neurology consult: Patient seen by Dr. Holm, appreciated input - Neurology impression failed Eliquis recommendations Coumadin clear to discharge from neurology standpoint once INR 2.0 or above - Coumadin 7.5 daily repeat INR tomorrow (2) Hypothyroidism ICD Codes: E03.9 - Hypothyroidism Status: Acute Plan: awaiting medication rec (3) Diabetes mellitus type 2, insulin dependent ICD Codes: E11.9 - Diabetes mellitus type 2, insulin dependent; Z79.4 - senior living (current) use of insulin Status: Acute Plan: - Diabetic diet - Accu-Cheks before meals at bedtime with medium dose sliding scale insulin coverage (4) Hypertension ICD Codes: I10 - Hypertension Status: Acute Plan: hold oral antihypertensives at this time monitor BP Assessment and Plan Patient examined. Assessment and plan formulated with Carola Smith PA-C. I agree with the above. Carola Smith Jul 08, 2017 14:11 Prince Kaba DO Jul 11, 2017 23:15
--- NOTE | 2017-07-08 14:43 | EKG ---
Date Performed: 07/07/2017 Time Performed: 18:39:05 PTAGE: 67 years EKG: Sinus rhythm BORDERLINE LEFT AXIS DEVIATION BORDERLINE ECG Since PREVIOUS TRACING , no significant change noted PREVIOUS TRACIN07/07/2017 11.46 DOCTOR: Russ Waite Interpretating Date/Time 07/08/2017 14:42:34
--- NOTE | 2017-07-08 14:43 | EKG ---
Date Performed: 07/07/2017 Time Performed: 11:46:53 PTAGE: 67 years EKG: Sinus rhythm MARKED LEFT AXIS DEVIATION PATTERN CONSISTENT WITH PULMONARY DISEASE ABNORMAL ECG Since PREVIOUS TRACING , no significant change noted PREVIOUS TRACIN09/06/2014 14.00 DOCTOR: Russ Waite Interpretating Date/Time 07/08/2017 14:42:10
--- NOTE | 2017-07-08 14:55 | ECHRPT ---
Indication: cva/tia CONCLUSIONS Normal left ventricular size. The left ventricular systolic function is mildly reduced with an estimated ejection fraction in the range of 45- 50%. [id number] mitral valve regurgitation. No aortic valve regurgitation. No aortic valve stenosis. There is mild tricuspid valve regurgitation. The estimated pulmonary arterial pressure is 44.1 mmHg. BP: / HR: Rhythm: MEASUREMENTS (Male / Female) Normal Values Technical Quality:Fair 2D ECHO LV Diastolic Diameter PLAX 4.6 cm 4.2 - 5.9 / 3.9 - 5.3 cm LV Systolic Diameter PLAX 4.0 cm IVS Diastolic Thickness 1.4 cm 0.6 - 1.0 / 0.6 - 0.9 cm LVPW Diastolic Thickness 1.1 cm 0.6 - 1.0 / 0.6 - 0.9 cm LV Relative Wall Thickness 0.5 RV Internal Dim ED PLAX 2.4 cm M-MODE Aortic Root Diameter MM 3.0 cm LA Systolic Diameter MM 3.3 cm LA Ao Ratio MM 1.1 AV Cusp Separation MM 2.0 cm DOPPLER LV E' Lateral Velocity 5.7 cm/s LV E' Septal Velocity 4.4 cm/s TR Peak Velocity 292.0 cm/s TR Peak Gradient 34.1 mmHg Right Atrial Pressure 10.0 mmHg Pulmonary Artery Systolic Pressu 44.1 mmHg Right Ventricular Systolic Press 44.1 mmHg FINDINGS LEFT VENTRICLE Normal left ventricular size. The left ventricular systolic function is mildly reduced with an estimated ejection fraction in the range of 45- 50%. Doppler parameters are consistent with impaired left ventricular relaxtion (grade 1 diastolic dysfun ction). RIGHT VENTRICLE Normal right ventricular size and systolic function. LEFT ATRIUM The left atrial size is normal. RIGHT ATRIUM The right atrial size is normal. ATRIAL SEPTUM Normal atrial septal thickness without atrial level shunting by limited color doppler interrogation. AORTA The aortic root and proximal ascending aorta are normal in size on limited imaging. MITRAL VALVE Structurally normal mitral valve. Wizff-ab-dssu mitral valve regurgitation. AORTIC VALVE Trileaflet aortic valve. No aortic valve regurgitation. No aortic valve stenosis. TRICUSPID VALVE Structurally normal tricuspid valve. There is mild tricuspid valve regurgitation. The estimated pulmonary arterial pressure is 44.1 mmHg. PULMONARY VALVE Trivial pulmonary valve regurgitation. VESSELS The inferior vena cava is normal in size. PERICARDIUM No pericardial effusion. Russ Waite MD (Electronically Signed) Final Date:08 July 2017 14:54
[2017-07-08] MEDS: WARFARIN SOD 7.5 MG TAB PO SCH (16:09)
[2017-07-09] VITALS (8 sets, daily range): BP systolic 127–138; BP diastolic 60–74; PULSE 83–89; RESP 16–20; TEMP 97.6–98.1; O2SAT 95–100
--- NOTE | 2017-07-09 07:24 | HHI.PR ---
Subjective Remarks sr Objective Vital Signs Date Time Temp Pulse Resp B/P (MAP) Pulse Ox O2 Delivery O2 Flow Rate FiO2 07/09/17 04:08 98.0 87 18 129/72 (91) 96 07/09/17 01:44 89 07/09/17 00:23 98.1 88 16 136/71 (92) 100 07/08/17 20:40 97.6 89 18 151/70 (97) 99 07/08/17 16:00 97.6 85 18 141/70 (93) 98 07/08/17 12:00 97.7 83 18 137/68 (91) 100 07/08/17 11:47 84 07/08/17 08:00 97.4 80 18 142/67 (92) 100 I/O 07/08/17 07/08/17 07/08/17 07/09/17 07/09/17 07/09/17 07:00 15:00 23:00 07:00 15:00 23:00 Intake Total 0 ml 1131 ml 711 ml Balance 0 ml 1131 ml 711 ml Intake Oral 0 ml 480 ml IV Total 651 ml 711 ml # Voids 1 6 3 # Bowel Movements 0 0 0 Result Diagram: 07/08/17 0608 07/08/17 1015 Objective Remarks 5/5 speech still some dysarthria no change vff face sym Assessment and Plan Assessment and Plan imp failed 5 bid eliquis so now on coumadin bilat cva left old r new us and cow neg can dc when inr 2.0 inr pend MED TEAM PLEASE DOSE DAILY COUMADIN Darion Kwok MD Jul 09, 2017 07:24
[2017-07-09 07:27] LABS: INTERNATIONAL NORMALIZED RATIO 1.1 RATIO; PROTHROMBIN TIME - PATIENT 11.2 SEC (9.8-11.6)
[2017-07-09] MEDS: HEPARIN SODIUM - SQ 10,000 UNITS/ML VIAL SQ SCH ×2 (08:52→20:21)
[2017-07-09] MEDS: INSULIN ASPART SUPPLEMENTAL SCALE SQ SCH ×4 (08:53→20:20)
[2017-07-09] MEDS: SODIUM CHLORIDE 0.9% FLUSH 10 ML FLUSH IV FLUSH SCH ×2 (09:00→20:20)
--- NOTE | 2017-07-09 13:46 | HHI.PR ---
Subjective Remarks Patient offers no new complaints Speech is becoming more clear Objective Vitals Vital Signs Date Time Temp Pulse Resp B/P (MAP) Pulse Ox O2 Delivery O2 Flow Rate FiO2 07/09/17 12:00 97.6 84 18 136/74 (94) 99 07/09/17 08:00 97.9 87 18 131/64 (86) 95 07/09/17 04:08 98.0 87 18 129/72 (91) 96 07/09/17 01:44 89 07/09/17 00:23 98.1 88 16 136/71 (92) 100 07/08/17 20:40 97.6 89 18 151/70 (97) 99 07/08/17 16:00 97.6 85 18 141/70 (93) 98 Result Diagram: 07/08/17 0608 07/08/17 1015 Other Results Laboratory Tests Test 07/07/17 11:40 07/07/17 14:00 07/08/17 06:08 07/08/17 10:15 White Blood Count 5.3 TH/MM3 4.1 TH/MM3 Red Blood Count 3.73 MIL/MM3 3.51 MIL/MM3 Hemoglobin 11.5 GM/DL 10.8 GM/DL Hematocrit 34.4 % 32.1 % Mean Corpuscular Volume 92.3 FL 91.6 FL Mean Corpuscular Hemoglobin 30.8 PG 30.9 PG Mean Corpuscular Hemoglobin Concent 33.4 % 33.8 % Red Cell Distribution Width 14.4 % 13.8 % Platelet Count 142 TH/MM3 128 TH/MM3 Mean Platelet Volume 11.0 FL 10.7 FL Neutrophils (%) (Auto) 62.7 % 57.6 % Lymphocytes (%) (Auto) 28.1 % 32.2 % Monocytes (%) (Auto) 4.8 % 5.1 % Eosinophils (%) (Auto) 3.7 % 4.2 % Basophils (%) (Auto) 0.7 % 0.9 % Neutrophils # (Auto) 3.3 TH/MM3 2.3 TH/MM3 Lymphocytes # (Auto) 1.5 TH/MM3 1.3 TH/MM3 Monocytes # (Auto) 0.3 TH/MM3 0.2 TH/MM3 Eosinophils # (Auto) 0.2 TH/MM3 0.2 TH/MM3 Basophils # (Auto) 0.0 TH/MM3 0.0 TH/MM3 CBC Comment DIFF FINAL DIFF FINAL Differential Comment Prothrombin Time 10.5 SEC 10.6 SEC Prothromb Time International Ratio 1.0 RATIO 1.0 RATIO Activated Partial Thromboplast Time 28.3 SEC Blood Urea Nitrogen 18 MG/DL 17 MG/DL Creatinine 1.50 MG/DL 1.34 MG/DL Random Glucose 78 MG/DL 72 MG/DL 168 MG/DL Total Protein 8.3 GM/DL Albumin 4.2 GM/DL Calcium Level 8.8 MG/DL 8.6 MG/DL Alkaline Phosphatase 65 U/L Aspartate Amino Transf (AST/SGOT) 38 U/L Alanine Aminotransferase (ALT/SGPT) 34 U/L Total Bilirubin 0.6 MG/DL Sodium Level 139 MEQ/L 141 MEQ/L Potassium Level 4.8 MEQ/L 5.1 MEQ/L Chloride Level 105 MEQ/L 109 MEQ/L Carbon Dioxide Level 27.8 MEQ/L 26.8 MEQ/L Anion Gap 6 MEQ/L 5 MEQ/L Estimat Glomerular Filtration Rate 42 ML/MIN 48 ML/MIN Troponin I LESS THAN 0.02 NG/ML Urine Color LIGHT-YELLOW Urine Turbidity CLEAR Urine pH 5.5 Urine Specific [place] 1.006 Urine Protein NEG mg/dL Urine Glucose (UA) NEG mg/dL Urine Ketones NEG mg/dL Urine Occult Blood NEG Urine Nitrite NEG Urine Bilirubin NEG Urine Urobilinogen LESS THAN 2.0 MG/DL Urine Leukocyte Esterase MOD Urine RBC LESS THAN 1 /hpf Urine WBC 8 /hpf Urine Squamous Epithelial Cells 1 /hpf Urine Bacteria RARE /hpf Microscopic Urinalysis Comment CATH Triglycerides Level 355 MG/DL Cholesterol Level 130 MG/DL LDL Cholesterol 21 MG/DL HDL Cholesterol 37.6 MG/DL Cholesterol/HDL Ratio 3.45 RATIO Free Thyroxine 1.22 NG/DL Thyroid Stimulating Hormone 3rd Gen 0.462 uIU/ML Test 07/09/17 06:03 Prothrombin Time 11.2 SEC Prothromb Time International Ratio 1.1 RATIO Imaging Last Impressions Chest X-Ray 07/07/17 1312 Signed Impressions: Service Date/Time: Friday, July 07, 2017 13:23 - CONCLUSION: 1. Normal examination. Keenan Sprague MD Head CT 07/07/17 1118 Signed Impressions: Service Date/Time: Friday, July 07, 2017 12:12 - CONCLUSION: 1. New area decreased attenuation involving the right posterior frontal and anterior parietal lobe most consistent with edema which could be secondary to infarction. MRI is recommended. 2. No evidence of hemorrhage or mass effect. 3. Chronic white matter changes. Tristen Sandoval MD Objective Remarks GENERAL: This is a well-nourished, well-developed patient SKIN: No rashes, ecchymoses or lesions. Cool and dry. HEAD: Atraumatic. Normocephalic. No temporal or scalp tenderness. EYES: Extraocular motions intact. No scleral icterus. No injection or drainage. CARDIOVASCULAR: Regular rate and rhythm RESPIRATORY: Clear to auscultation. Breath sounds equal bilaterally. GASTROINTESTINAL: Abdomen soft, non-tender, nondistended. MUSCULOSKELETAL: Extremities without clubbing, cyanosis, or edema. No joint tenderness, effusion, or edema noted. No calf tenderness. Negative Homans sign bilaterally. NEUROLOGICAL: Awake and alert. Motor and sensory grossly within normal limits. 4 /5 right upper and lower extremities. Five out of 5 muscle strength in left upper and lower extremities. slurred speech is improving A/P Problem List: (1) CVA (cerebral vascular accident) ICD Codes: I63.9 - Cerebral infarction, unspecified Plan: This is a 67-year-old female patient with past medical history which includes chronic kidney disease stage 3, diabetes mellitus type 2, embolic CVA, hypothyroidism, hyperlipidemia, sickle cell trait. Patient presents the emergency department today with complaints of slurred speech 3 days. 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 - CT reviewed and reveals new area of decreased attenuation involving the right posterior frontal and anterior parietal lobe was consistent with edema which could be secondary to infarction. MRI is recommended. No evidence of hemorrhage or mass effect. Chronic white matter changes - MRI Findings correlative with CT scan acute stroke diffusion abnormality in the right posterior frontal parietal region involving senior- white matter. There may be a second faint area slightly posterior to this in the parietal region of senior-white matter junction is subtle infarct - MRA no acute [place] vascular findings - US bilateral carotid arteries no significant atherosclerotic disease or stenosis is identified within either internal carotid artery. There is antegrade flow within both vertebral arteries - echocardiogram (07/08/17): Normal left ventricular size. The left ventricular systolic function is mildly reduced with an estimated ejection fraction in the range of 45-50%. [id number] mitral valve regurgitation. No aortic valve regurgitation. No aortic valve stenosis. There is mild tricuspid valve regurgitation. The estimated pulmonary arterial pressure is 44.1 mmHg. - continuous telemetry monitoring - Lipid profile reviewed and reveals an LDL of 21 - PT consulted - Speech consulted mechanical soft thin liquids - Neurology consult: Patient seen by Dr. Holm, appreciated input - Neurology impression failed Eliquis. recommendations Coumadin clear to discharge from neurology standpoint once INR 2.0 or above - Coumadin 7.5 daily repeat INR tomorrow - INR (07/09) 1.1 (2) Hypothyroidism ICD Codes: E03.9 - Hypothyroidism Status: Acute Plan: home Synthroid resumed (3) Diabetes mellitus type 2, insulin dependent ICD Codes: E11.9 - Diabetes mellitus type 2, insulin dependent; Z79.4 - [facility] (current) use of insulin Status: Acute Plan: - Diabetic diet - Accu-Cheks before meals at bedtime with medium dose sliding scale insulin coverage (4) Hypertension ICD Codes: I10 - Hypertension Status: Acute Plan: initially held oral antihypertensives monitor BP (07/09) home lisinopril 5 mg PO daily resumed Assessment and Plan Patient examined. Assessment and plan formulated with Carola Smith PA-C. I agree with the above. Carola Smith Jul 09, 2017 13:46 Prince Kaba DO Jul 11, 2017 23:16
[2017-07-09] MEDS: WARFARIN SOD 7.5 MG TAB PO SCH (17:31)
[2017-07-09] MEDS: TIMOLOL MALEATE 0.5% OPHT SOLN 5 ML BTL EACH EYE SCH (20:21)
[2017-07-09] MEDS: ATORVASTATIN 80 MG TAB PO SCH (20:22)
[2017-07-09] MEDS: DOCUSATE SODIUM 100 MG CAP PO SCH (20:23)
[2017-07-10] VITALS: BP 140/61; PULSE 74; RESP 20; TEMP 98.6; O2SAT 97
[2017-07-10 03:24] VITALS: PULSE 85
[2017-07-10 04:00] VITALS: BP 130/70; PULSE 83; RESP 20; TEMP 97.7; O2SAT 97
[2017-07-10] MEDS: LEVOTHYROXINE SODIUM 125 MCG TAB PO SCH (06:09)
--- NOTE | 2017-07-10 07:10 | HHI.PR ---
Subjective Remarks sr Objective Vital Signs Date Time Temp Pulse Resp B/P (MAP) Pulse Ox O2 Delivery O2 Flow Rate FiO2 07/10/17 04:00 97.7 83 20 130/70 (90) 97 07/10/17 03:24 85 07/10/17 00:00 98.6 74 20 140/61 (87) 97 07/09/17 20:00 98.0 83 20 127/69 (88) 98 07/09/17 18:18 87 07/09/17 16:00 97.7 87 18 138/60 (86) 99 07/09/17 12:00 97.6 84 18 136/74 (94) 99 07/09/17 08:00 97.9 87 18 131/64 (86) 95 I/O 07/09/17 07/09/17 07/09/17 07/10/17 07/10/17 07/10/17 07:00 15:00 23:00 07:00 15:00 23:00 Intake Total 711 ml 960 ml 640 ml Balance 711 ml 960 ml 640 ml Intake Oral 960 ml 640 ml IV Total 711 ml # Voids 3 6 2 # Bowel Movements 0 0 Result Diagram: 07/08/17 0608 07/08/17 1015 Objective Remarks 5/5 speech little better still some dysarthria no change vff face sym Assessment and Plan Assessment and Plan imp failed 5 bid eliquis so now on coumadin bilat cva left old r new us and cow neg can dc when inr 2.0 inr pend MED TEAM PLEASE DOSE DAILY COUMADIN oob ok 07/10/17 improved dc when inr >1.9 will sign off med team plz follow inr daily Darion Holm MD Jul 10, 2017 07:10
[2017-07-10 08:00] VITALS: BP 161/74; PULSE 86; RESP 18; TEMP 97.3; O2SAT 100
[2017-07-10] MEDS: INSULIN ASPART SUPPLEMENTAL SCALE SQ SCH ×4 (08:00→22:00)
[2017-07-10] MEDS: LISINOPRIL 5 MG TAB PO SCH (08:56)
[2017-07-10] MEDS: DOCUSATE SODIUM 100 MG CAP PO SCH ×2 (08:56→22:00)
[2017-07-10] MEDS: SODIUM CHLORIDE 0.9% FLUSH 10 ML FLUSH IV FLUSH SCH ×2 (08:56→22:01)
[2017-07-10] MEDS: HEPARIN SODIUM - SQ 10,000 UNITS/ML VIAL SQ SCH ×2 (08:56→22:00)
[2017-07-10] MEDS: TIMOLOL MALEATE 0.5% OPHT SOLN 5 ML BTL EACH EYE SCH ×2 (08:57→22:01)
[2017-07-10 09:09] LABS: AUTOMATED NEUTROPHIL # 2.5 TH/MM3 (1.8-7.7); EOSINOPHIL # 0.3 TH/MM3 (0-0.4); EOSINOPHIL % 5.6 % (0.0-4.0); HEMATOCRIT 32.9 % (35.0-46.0); HEMOGLOBIN 11.1 GM/DL (11.6-15.3); INTERNATIONAL NORMALIZED RATIO 1.3 RATIO; LYMPH % 35.3 % (9.0-44.0); LYMPHOCYTE # 1.6 TH/MM3 (1.0-4.8); MEAN CELL VOLUME 91.8 FL (80.0-100.0); MEAN CORPUSCULAR HEMOGLOBIN 30.9 PG (27.0-34.0); MEAN CORPUSCULAR HGB CONC 33.7 % (32.0-36.0); MONOCYTE # 0.2 TH/MM3 (0-0.9); NEUT % 53.1 % (16.0-70.0); PLATELET COUNT 127 TH/MM3 (150-450); PROTHROMBIN TIME - PATIENT 12.7 SEC (9.8-11.6); RED BLOOD COUNT 3.58 MIL/MM3 (4.00-5.30); RED CELL DISTRIBUTION WIDTH 14.2 % (11.6-17.2); WHITE BLOOD COUNT 4.6 TH/MM3 (4.0-11.0)
--- NOTE | 2017-07-10 09:47 | HHI.PR ---
Subjective Remarks Patient ambulating about the room feels that her speech is getting better looking forward to DC Objective Vitals Vital Signs Date Time Temp Pulse Resp B/P (MAP) Pulse Ox O2 Delivery O2 Flow Rate FiO2 07/10/17 04:00 97.7 83 20 130/70 (90) 97 07/10/17 03:24 85 07/10/17 00:00 98.6 74 20 140/61 (87) 97 07/09/17 20:00 98.0 83 20 127/69 (88) 98 07/09/17 18:18 87 07/09/17 16:00 97.7 87 18 138/60 (86) 99 07/09/17 12:00 97.6 84 18 136/74 (94) 99 Result Diagram: 07/08/17 0608 07/08/17 1015 Other Results Laboratory Tests Test 07/07/17 11:40 07/07/17 14:00 07/08/17 06:08 07/08/17 10:15 White Blood Count 5.3 TH/MM3 4.1 TH/MM3 Red Blood Count 3.73 MIL/MM3 3.51 MIL/MM3 Hemoglobin 11.5 GM/DL 10.8 GM/DL Hematocrit 34.4 % 32.1 % Mean Corpuscular Volume 92.3 FL 91.6 FL Mean Corpuscular Hemoglobin 30.8 PG 30.9 PG Mean Corpuscular Hemoglobin Concent 33.4 % 33.8 % Red Cell Distribution Width 14.4 % 13.8 % Platelet Count 142 TH/MM3 128 TH/MM3 Mean Platelet Volume 11.0 FL 10.7 FL Neutrophils (%) (Auto) 62.7 % 57.6 % Lymphocytes (%) (Auto) 28.1 % 32.2 % Monocytes (%) (Auto) 4.8 % 5.1 % Eosinophils (%) (Auto) 3.7 % 4.2 % Basophils (%) (Auto) 0.7 % 0.9 % Neutrophils # (Auto) 3.3 TH/MM3 2.3 TH/MM3 Lymphocytes # (Auto) 1.5 TH/MM3 1.3 TH/MM3 Monocytes # (Auto) 0.3 TH/MM3 0.2 TH/MM3 Eosinophils # (Auto) 0.2 TH/MM3 0.2 TH/MM3 Basophils # (Auto) 0.0 TH/MM3 0.0 TH/MM3 CBC Comment DIFF FINAL DIFF FINAL Differential Comment Prothrombin Time 10.5 SEC 10.6 SEC Prothromb Time International Ratio 1.0 RATIO 1.0 RATIO Activated Partial Thromboplast Time 28.3 SEC Blood Urea Nitrogen 18 MG/DL 17 MG/DL Creatinine 1.50 MG/DL 1.34 MG/DL Random Glucose 78 MG/DL 72 MG/DL 168 MG/DL Total Protein 8.3 GM/DL Albumin 4.2 GM/DL Calcium Level 8.8 MG/DL 8.6 MG/DL Alkaline Phosphatase 65 U/L Aspartate Amino Transf (AST/SGOT) 38 U/L Alanine Aminotransferase (ALT/SGPT) 34 U/L Total Bilirubin 0.6 MG/DL Sodium Level 139 MEQ/L 141 MEQ/L Potassium Level 4.8 MEQ/L 5.1 MEQ/L Chloride Level 105 MEQ/L 109 MEQ/L Carbon Dioxide Level 27.8 MEQ/L 26.8 MEQ/L Anion Gap 6 MEQ/L 5 MEQ/L Estimat Glomerular Filtration Rate 42 ML/MIN 48 ML/MIN Troponin I LESS THAN 0.02 NG/ML Urine Color LIGHT-YELLOW Urine Turbidity CLEAR Urine pH 5.5 Urine Specific [place] 1.006 Urine Protein NEG mg/dL Urine Glucose (UA) NEG mg/dL Urine Ketones NEG mg/dL Urine Occult Blood NEG Urine Nitrite NEG Urine Bilirubin NEG Urine Urobilinogen LESS THAN 2.0 MG/DL Urine Leukocyte Esterase MOD Urine RBC LESS THAN 1 /hpf Urine WBC 8 /hpf Urine Squamous Epithelial Cells 1 /hpf Urine Bacteria RARE /hpf Microscopic Urinalysis Comment CATH Triglycerides Level 355 MG/DL Cholesterol Level 130 MG/DL LDL Cholesterol 21 MG/DL HDL Cholesterol 37.6 MG/DL Cholesterol/HDL Ratio 3.45 RATIO Free Thyroxine 1.22 NG/DL Thyroid Stimulating Hormone 3rd Gen 0.462 uIU/ML Test 07/09/17 06:03 07/10/17 07:10 Prothrombin Time 11.2 SEC 12.7 SEC Prothromb Time International Ratio 1.1 RATIO 1.3 RATIO Imaging Last Impressions Chest X-Ray 07/07/17 1312 Signed Impressions: Service Date/Time: Friday, July 07, 2017 13:23 - CONCLUSION: 1. Normal examination. Keenan Sprague MD Head CT 07/07/17 1118 Signed Impressions: Service Date/Time: Friday, July 07, 2017 12:12 - CONCLUSION: 1. New area decreased attenuation involving the right posterior frontal and anterior parietal lobe most consistent with edema which could be secondary to infarction. MRI is recommended. 2. No evidence of hemorrhage or mass effect. 3. Chronic white matter changes. Tristen Sandoval MD Objective Remarks GENERAL: This is a well-nourished, well-developed patient CARDIOVASCULAR: Regular rate and rhythm RESPIRATORY: Clear to auscultation. Breath sounds equal bilaterally. GASTROINTESTINAL: Abdomen soft, non-tender, nondistended. MUSCULOSKELETAL: Extremities without clubbing, cyanosis, or edema. No joint tenderness, effusion, or edema noted. No calf tenderness. Negative Homans sign bilaterally. NEUROLOGICAL: Awake and alert. Motor and sensory grossly within normal limits. 4 /5 right upper and lower extremities. Five out of 5 muscle strength in left upper and lower extremities. slurred speech is improving A/P Problem List: (1) CVA (cerebral vascular accident) ICD Codes: I63.9 - Cerebral infarction, unspecified Plan: This is a 67-year-old female patient with past medical history which includes chronic kidney disease stage 3, diabetes mellitus type 2, embolic CVA, hypothyroidism, hyperlipidemia, sickle cell trait. Patient presents the emergency department today with complaints of slurred speech 3 days. 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 - CT reviewed and reveals new area of decreased attenuation involving the right posterior frontal and anterior parietal lobe was consistent with edema which could be secondary to infarction. MRI is recommended. No evidence of hemorrhage or mass effect. Chronic white matter changes - MRI Findings correlative with CT scan acute stroke diffusion abnormality in the right posterior frontal parietal region involving senior- white matter. There may be a second faint area slightly posterior to this in the parietal region of senior-white matter junction is subtle infarct - MRA no acute [place] vascular findings - [place] bilateral carotid arteries no significant atherosclerotic disease or stenosis is identified within either internal carotid artery. There is antegrade flow within both vertebral arteries - echocardiogram (07/08/17): Normal left ventricular size. The left ventricular systolic function is mildly reduced with an estimated ejection fraction in the range of 45-50%. [id number] mitral valve regurgitation. No aortic valve regurgitation. No aortic valve stenosis. There is mild tricuspid valve regurgitation. The estimated pulmonary arterial pressure is 44.1 mmHg. - continuous telemetry monitoring - Lipid profile reviewed and reveals an LDL of 21 - PT consulted - Speech consulted mechanical soft thin liquids - Neurology consult: Patient seen by Dr. Holm, appreciated input - Neurology impression failed Eliquis. recommendations Coumadin clear to discharge from neurology standpoint once INR > 1.9 - Neurology signed off - Coumadin 7.5 daily - INR (07/09) 1.1 -> 1.3 (07/10) - repeat INR in AM (2) Hypothyroidism ICD Codes: E03.9 - Hypothyroidism Status: Acute Plan: home Synthroid resumed (3) Diabetes mellitus type 2, insulin dependent ICD Codes: E11.9 - Diabetes mellitus type 2, insulin dependent; Z79.4 - halfway (current) use of insulin Status: Acute Plan: - Diabetic diet - Accu-Cheks before meals at bedtime with medium dose sliding scale insulin coverage (4) Hypertension ICD Codes: I10 - Hypertension Status: Acute Plan: initially held oral antihypertensives monitor BP (07/09) home lisinopril 5 mg PO daily resumed Assessment and Plan Patient examined. Assessment and plan formulated with Carola Smith PA-C. I agree with the above. acute cva. neurology feels related to eliquis failure. coumadin and then d/c when therapeutic inr. clinically improving. will need outpt speech Carola Smith Jul 10, 2017 09:47 Asim Moreno MD Jul 10, 2017 14:19
[2017-07-10 09:57] LABS: ROULEAUX PRESENT (NORMAL)
[2017-07-10 10:34] LABS: BICARBONATE 23.1 MEQ/L (21.0-32.0); CALCIUM 9.4 MG/DL (8.5-10.1); CREATININE 1.34 MG/DL (0.50-1.00)
[2017-07-10 12:00] VITALS: BP 134/76; PULSE 78; RESP 18; TEMP 98; O2SAT 100
[2017-07-10] MEDS: WARFARIN SOD 7.5 MG TAB PO SCH (17:26)
[2017-07-10 20:00] VITALS: BP 138/73; PULSE 82; RESP 20; TEMP 98.3; O2SAT 100
[2017-07-10] MEDS: ATORVASTATIN 80 MG TAB PO SCH (22:00)
[2017-07-11] VITALS (8 sets, daily range): BP systolic 105–141; BP diastolic 57–89; PULSE 79–87; RESP 18; TEMP 97.7–98.5; O2SAT 97–99
[2017-07-11] MEDS: LEVOTHYROXINE SODIUM 125 MCG TAB PO SCH (06:30)
[2017-07-11] MEDS: INSULIN ASPART SUPPLEMENTAL SCALE SQ SCH ×4 (08:00→21:55)
[2017-07-11] MEDS: LISINOPRIL 5 MG TAB PO SCH (08:20)
[2017-07-11] MEDS: DOCUSATE SODIUM 100 MG CAP PO SCH ×2 (08:20→20:22)
[2017-07-11] MEDS: HEPARIN SODIUM - SQ 10,000 UNITS/ML VIAL SQ SCH ×2 (08:21→20:25)
[2017-07-11] MEDS: TIMOLOL MALEATE 0.5% OPHT SOLN 5 ML BTL EACH EYE SCH ×2 (08:21→20:24)
[2017-07-11 08:32] LABS: INTERNATIONAL NORMALIZED RATIO 1.5 RATIO; PROTHROMBIN TIME - PATIENT 15.2 SEC (9.8-11.6)
[2017-07-11] MEDS: SODIUM CHLORIDE 0.9% FLUSH 10 ML FLUSH IV FLUSH SCH ×2 (08:33→20:27)
[2017-07-11 08:53] LABS: BICARBONATE 27.7 MEQ/L (21.0-32.0); CREATININE 1.54 MG/DL (0.50-1.00)
[2017-07-11] MEDS ORDERED: SODIUM CHLOR 0.9% 1000 ML INJ 1,000 ML IV SCH (11:15)
--- NOTE | 2017-07-11 11:46 | HHI.PR ---
Subjective Remarks Patient awake and alert offers no complaints Objective Vitals Vital Signs Date Time Temp Pulse Resp B/P (MAP) Pulse Ox O2 Delivery O2 Flow Rate FiO2 07/11/17 08:00 98.5 81 18 131/61 (84) 97 07/11/17 04:00 98.4 80 18 124/60 (81) 97 07/11/17 03:45 80 07/11/17 00:00 98.3 87 18 129/67 (87) 99 07/10/17 20:00 98.3 82 20 138/73 (94) 100 07/10/17 12:00 98.0 78 18 134/76 (95) 100 07/11/17 07/11/17 07/12/17 15:00 23:00 07:00 # Voids 2 # Bowel Movements 0 Result Diagram: 07/10/17 0710 07/11/17 0706 Other Results Laboratory Tests Test 07/09/17 06:03 07/10/17 07:10 07/11/17 07:06 Prothrombin Time 11.2 SEC 12.7 SEC 15.2 SEC Prothromb Time International Ratio 1.1 RATIO 1.3 RATIO 1.5 RATIO White Blood Count 4.6 TH/MM3 Red Blood Count 3.58 MIL/MM3 Hemoglobin 11.1 GM/DL Hematocrit 32.9 % Mean Corpuscular Volume 91.8 FL Mean Corpuscular Hemoglobin 30.9 PG Mean Corpuscular Hemoglobin Concent 33.7 % Red Cell Distribution Width 14.2 % Platelet Count 127 TH/MM3 Mean Platelet Volume 11.0 FL Neutrophils (%) (Auto) 53.1 % Lymphocytes (%) (Auto) 35.3 % Monocytes (%) (Auto) 5.0 % Eosinophils (%) (Auto) 5.6 % Basophils (%) (Auto) 1.0 % Neutrophils # (Auto) 2.5 TH/MM3 Lymphocytes # (Auto) 1.6 TH/MM3 Monocytes # (Auto) 0.2 TH/MM3 Eosinophils # (Auto) 0.3 TH/MM3 Basophils # (Auto) 0.0 TH/MM3 CBC Comment AUTO DIFF Differential Comment AUTO DIFF CONFIRMED Platelet Estimate LOW Platelet Morphology Comment NORMAL Rouleau PRESENT Blood Urea Nitrogen 21 MG/DL 26 MG/DL Creatinine 1.34 MG/DL 1.54 MG/DL Random Glucose 121 MG/DL 150 MG/DL Calcium Level 9.4 MG/DL 10.0 MG/DL Sodium Level 138 MEQ/L 136 MEQ/L Potassium Level 4.8 MEQ/L 4.5 MEQ/L Chloride Level 106 MEQ/L 103 MEQ/L Carbon Dioxide Level 23.1 MEQ/L 27.7 MEQ/L Anion Gap 9 MEQ/L 5 MEQ/L Estimat Glomerular Filtration Rate 48 ML/MIN 41 ML/MIN Imaging Last Impressions Chest X-Ray 07/07/17 1312 Signed Impressions: Service Date/Time: Friday, July 07, 2017 13:23 - CONCLUSION: 1. Normal examination. Keenan Sprague MD Head CT 07/07/17 1118 Signed Impressions: Service Date/Time: Friday, July 07, 2017 12:12 - CONCLUSION: 1. New area decreased attenuation involving the right posterior frontal and anterior parietal lobe most consistent with edema which could be secondary to infarction. MRI is recommended. 2. No evidence of hemorrhage or mass effect. 3. Chronic white matter changes. Tristen Sandoval MD Objective Remarks GENERAL: This is a well-nourished, well-developed patient CARDIOVASCULAR: Regular rate and rhythm RESPIRATORY: Clear to auscultation. Breath sounds equal bilaterally. GASTROINTESTINAL: Abdomen soft, non-tender, nondistended. MUSCULOSKELETAL: Extremities without clubbing, cyanosis, or edema. No joint tenderness, effusion, or edema noted. No calf tenderness. Negative Homans sign bilaterally. NEUROLOGICAL: Awake and alert. Motor and sensory grossly within normal limits. 4 /5 right upper and lower extremities. Five out of 5 muscle strength in left upper and lower extremities. slurred speech is improving A/P Problem List: (1) CVA (cerebral vascular accident) ICD Codes: I63.9 - Cerebral infarction, unspecified Plan: This is a 67-year-old female patient with past medical history which includes chronic kidney disease stage 3, diabetes mellitus type 2, embolic CVA, hypothyroidism, hyperlipidemia, sickle cell trait. Patient presents the emergency department today with complaints of slurred speech 3 days. 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 - CT reviewed and reveals new area of decreased attenuation involving the right posterior frontal and anterior parietal lobe was consistent with edema which could be secondary to infarction. MRI is recommended. No evidence of hemorrhage or mass effect. Chronic white matter changes - MRI Findings correlative with CT scan acute stroke diffusion abnormality in the right posterior frontal parietal region involving senior- white matter. There may be a second faint area slightly posterior to this in the parietal region of senior-white matter junction is subtle infarct - MRA no acute [place] vascular findings - [place] bilateral carotid arteries no significant atherosclerotic disease or stenosis is identified within either internal carotid artery. There is antegrade flow within both vertebral arteries - echocardiogram (07/08/17): Normal left ventricular size. The left ventricular systolic function is mildly reduced with an estimated ejection fraction in the range of 45-50%. [id number] mitral valve regurgitation. No aortic valve regurgitation. No aortic valve stenosis. There is mild tricuspid valve regurgitation. The estimated pulmonary arterial pressure is 44.1 mmHg. - continuous telemetry monitoring - Lipid profile reviewed and reveals an LDL of 21 - PT consulted - Speech consulted mechanical soft thin liquids - Neurology consult: Patient seen by Dr. Holm, appreciated input - Neurology impression failed Eliquis. 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 Assessment and plan formulated with Carola Smith PA-C. I agree with the above. s/p acute cva.awaiting coumadin to be therapeutic increase ivf today due to mild dehydration. Carola Smith Jul 11, 2017 11:46 Asim Moreno MD Jul 11, 2017 11:51
[2017-07-11] MEDS: WARFARIN SOD 7.5 MG TAB PO SCH (17:36)
[2017-07-11] MEDS: ATORVASTATIN 80 MG TAB PO SCH (20:22)
--- NOTE | 2017-07-11 22:53 | HM ---
Date Performed: 07/08/2017 Time Performed: 15:22:00 HOOKUP DATE: 07/08/17 03:22:00 PM Sat ANALYSIS START TIME: 07/08/2017 3:27:00 PM ANALYSIS END TIME: 07/09/2017 3:21:37 PM PATIENT AGE: 67 PATIENT HEIGHT PATIENT WEIGHT: 160 DRUG LIST PATIENT DIAGNOSIS TEST NARRATIVE: The patient's average heart rate was 83 BPM. Heart rates greater than 120 B PM were noted < 1% of the time. Heart rates less than 50 BPM were noted < 1% of the time. No neil ses exceeding 5.0 seconds were noted. 56 ventricular ectopics, which represented < 1% of the tota l beat count, were noted. The highest ventricular ectopic frequency occurred from 08:00 AM to 09:00 AM Sun. During this time 11 VE(s) occurred. Ventricular ectopics were observed as 54 isolated beat( s) and as 1 couplet(s). No runs were noted. No supraventricular ectopics were noted. No epis odes of ST depression (defined as -1.0 mm or more) were noted in channel 1. No episodes of ST depres jame (defined as -1.0 mm or more) were noted in channel 2. No episodes of ST depression (defined as -1.0 mm or more) were noted in channel 3. TEST INTERPRETATION: Sinus rhythm No pause No supraventricular tachycardia observed No ventricular tachycardia observed There is no e ntry in the diary Signed by : Bud Hager
[2017-07-12] VITALS: BP 124/62; PULSE 78; RESP 18; TEMP 97.3; O2SAT 97
[2017-07-12 04:00] VITALS: BP 134/62; PULSE 69; PULSE 75; RESP 18; TEMP 97.5; O2SAT 100
[2017-07-12] MEDS: LEVOTHYROXINE SODIUM 125 MCG TAB PO SCH (06:18)
[2017-07-12] MEDS: INSULIN ASPART SUPPLEMENTAL SCALE SQ SCH ×5 (08:00→20:51)
[2017-07-12 08:24] VITALS: BP 146/66; PULSE 76; RESP 20; TEMP 97.6; O2SAT 100
[2017-07-12] MEDS: DOCUSATE SODIUM 100 MG CAP PO SCH ×2 (08:53→20:52)
[2017-07-12] MEDS: LISINOPRIL 5 MG TAB PO SCH (08:54)
[2017-07-12] MEDS: SODIUM CHLORIDE 0.9% FLUSH 10 ML FLUSH IV FLUSH SCH ×2 (08:55→20:52)
[2017-07-12] MEDS: TIMOLOL MALEATE 0.5% OPHT SOLN 5 ML BTL EACH EYE SCH ×2 (08:55→20:55)
[2017-07-12] MEDS: HEPARIN SODIUM - SQ 10,000 UNITS/ML VIAL SQ SCH ×2 (08:55→20:52)
[2017-07-12 09:02] LABS: INTERNATIONAL NORMALIZED RATIO 1.6 RATIO; PROTHROMBIN TIME - PATIENT 16.1 SEC (9.8-11.6)
[2017-07-12 09:29] LABS: CALCIUM 9.6 MG/DL (8.5-10.1); CREATININE 1.51 MG/DL (0.50-1.00)
--- NOTE | 2017-07-12 11:33 | HHI.PR ---
Subjective Remarks doing ok. no complaints Objective Vitals heart reg lung cta abd s/nt ext no edema Vital Signs Date Time Temp Pulse Resp B/P (MAP) Pulse Ox O2 Delivery O2 Flow Rate FiO2 07/12/17 08:24 97.6 76 20 146/66 (92) 100 07/12/17 04:00 69 07/12/17 04:00 97.5 75 18 134/62 (86) 100 07/12/17 00:00 97.3 78 18 124/62 (82) 97 07/11/17 23:00 81 07/11/17 20:00 86 07/11/17 20:00 97.7 87 18 129/60 (83) 97 07/11/17 16:00 98.3 82 18 105/57 (73) 97 07/11/17 12:00 97.8 79 18 135/62 (86) 98 07/11/17 12:00 85 07/12/17 07/12/17 07/13/17 15:00 23:00 07:00 # Voids 3 Result Diagram: 07/10/17 0710 07/12/17 0826 Imaging Last Impressions Chest X-Ray 07/07/17 1312 Signed Impressions: Service Date/Time: Friday, July 07, 2017 13:23 - CONCLUSION: 1. Normal examination. Keenan Sprague MD Head CT 07/07/17 1118 Signed Impressions: Service Date/Time: Friday, July 07, 2017 12:12 - CONCLUSION: 1. New area decreased attenuation involving the right posterior frontal and anterior parietal lobe most consistent with edema which could be secondary to infarction. MRI is recommended. 2. No evidence of hemorrhage or mass effect. 3. Chronic white matter changes. Tristen Sandoval MD A/P Problem List: (1) CVA (cerebral vascular accident) ICD Codes: I63.9 - Cerebral infarction, unspecified Status: Acute Plan: This is a 67-year-old female patient with past medical history which includes chronic kidney disease stage 3, diabetes mellitus type 2, embolic CVA, hypothyroidism, hyperlipidemia, sickle cell trait. Patient presents the emergency department today with complaints of slurred speech 3 days. 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 - CT reviewed and reveals new area of decreased attenuation involving the right posterior frontal and anterior parietal lobe was consistent with edema which could be secondary to infarction. MRI is recommended. No evidence of hemorrhage or mass effect. Chronic white matter changes - MRI Findings correlative with CT scan acute stroke diffusion abnormality in the right posterior frontal parietal region involving senior- white matter. There may be a second faint area slightly posterior to this in the parietal region of senior-white matter junction is subtle infarct - MRA no acute [place] vascular findings - [place] bilateral carotid arteries no significant atherosclerotic disease or stenosis is identified within either internal carotid artery. There is antegrade flow within both vertebral arteries - echocardiogram (07/08/17): Normal left ventricular size. The left ventricular systolic function is mildly reduced with an estimated ejection fraction in the range of 45-50%. [id number] mitral valve regurgitation. No aortic valve regurgitation. No aortic valve stenosis. There is mild tricuspid valve regurgitation. The estimated pulmonary arterial pressure is 44.1 mmHg. - continuous telemetry monitoring - Lipid profile reviewed and reveals an LDL of 21 - PT consulted - Speech consulted mechanical soft thin liquids - Neurology consult: Patient seen by Dr. Holm, appreciated input - Neurology impression failed Eliquis. recommendations Coumadin clear to discharge from neurology standpoint once INR > 1.9 - Neurology signed off - Coumadin 7.5 daily inr today 1.6...... dehydration gentle ivf given (2) Hypothyroidism ICD Codes: E03.9 - Hypothyroidism Status: Chronic Plan: home Synthroid resumed (3) Diabetes mellitus type 2, insulin dependent ICD Codes: E11.9 - Diabetes mellitus type 2, insulin dependent; Z79.4 - shelter (current) use of insulin Status: Chronic Plan: - Diabetic diet - Accu-Cheks before meals at bedtime with medium dose sliding scale insulin coverage (4) Hypertension ICD Codes: I10 - Hypertension Status: Chronic Plan: initially held oral antihypertensives monitor BP (07/09) home lisinopril 5 mg PO daily resumed Asim Moreno MD Jul 12, 2017 11:33
[2017-07-12 12:00] VITALS: BP 142/63; PULSE 72; RESP 20; TEMP 97.7; O2SAT 100
[2017-07-12 16:00] VITALS: BP 108/67; PULSE 76; RESP 20; TEMP 98.2; O2SAT 100
[2017-07-12] MEDS: WARFARIN SOD 7.5 MG TAB PO SCH (17:21)
[2017-07-12 20:00] VITALS: BP 145/66; PULSE 73; PULSE 75; RESP 18; TEMP 97.9; O2SAT 99
[2017-07-12] MEDS: ATORVASTATIN 80 MG TAB PO SCH (20:52)
[2017-07-13] VITALS (8 sets, daily range): BP systolic 119–141; BP diastolic 58–67; PULSE 68–83; RESP 17–18; TEMP 97.4–98.1; O2SAT 98–100
[2017-07-13] MEDS: LEVOTHYROXINE SODIUM 125 MCG TAB PO SCH (05:46)
[2017-07-13 06:44] LABS: INTERNATIONAL NORMALIZED RATIO 1.6 RATIO; PROTHROMBIN TIME - PATIENT 16.4 SEC (9.8-11.6)
[2017-07-13] MEDS: INSULIN ASPART SUPPLEMENTAL SCALE SQ SCH ×4 (08:00→21:06)
[2017-07-13] MEDS: LISINOPRIL 5 MG TAB PO SCH (08:46)
[2017-07-13] MEDS: DOCUSATE SODIUM 100 MG CAP PO SCH ×2 (08:46→21:05)
[2017-07-13] MEDS: HEPARIN SODIUM - SQ 10,000 UNITS/ML VIAL SQ SCH ×2 (08:47→21:05)
[2017-07-13] MEDS: TIMOLOL MALEATE 0.5% OPHT SOLN 5 ML BTL EACH EYE SCH ×2 (08:47→21:06)
[2017-07-13] MEDS: SODIUM CHLORIDE 0.9% FLUSH 10 ML FLUSH IV FLUSH SCH ×2 (08:47→21:05)
--- NOTE | 2017-07-13 10:21 | HHI.PR ---
Subjective Remarks Pt without any specific complaints today INR is not therapeutic yet, 1.6 today Vitals are stable Objective Vitals Vital Signs Date Time Temp Pulse Resp B/P (MAP) Pulse Ox O2 Delivery O2 Flow Rate FiO2 07/13/17 08:20 97.7 71 18 128/59 (82) 100 07/13/17 05:01 71 07/13/17 04:00 98.0 74 18 141/65 (90) 98 07/13/17 00:00 98.1 83 18 119/58 (78) 99 07/13/17 00:00 78 07/12/17 20:00 97.9 73 18 145/66 (92) 99 07/12/17 20:00 75 07/12/17 16:00 98.2 76 20 108/67 (81) 100 07/12/17 12:00 97.7 72 20 142/63 (89) 100 07/13/17 07/13/17 07/14/17 15:00 23:00 07:00 # Voids 4 Result Diagram: 07/10/17 0710 07/12/17 0826 Other Results Laboratory Tests Test 07/12/17 08:26 07/13/17 05:30 Prothrombin Time 16.1 SEC 16.4 SEC Prothromb Time International Ratio 1.6 RATIO 1.6 RATIO Blood Urea Nitrogen 26 MG/DL Creatinine 1.51 MG/DL Random Glucose 159 MG/DL Calcium Level 9.6 MG/DL Sodium Level 137 MEQ/L Potassium Level 4.3 MEQ/L Chloride Level 105 MEQ/L Carbon Dioxide Level 26.0 MEQ/L Anion Gap 6 MEQ/L Estimat Glomerular Filtration Rate 42 ML/MIN Imaging Last Impressions Chest X-Ray 07/07/17 1312 Signed Impressions: Service Date/Time: Friday, July 07, 2017 13:23 - CONCLUSION: 1. Normal examination. Keenan Sprague MD Head CT 07/07/17 1118 Signed Impressions: Service Date/Time: Friday, July 07, 2017 12:12 - CONCLUSION: 1. New area decreased attenuation involving the right posterior frontal and anterior parietal lobe most consistent with edema which could be secondary to infarction. MRI is recommended. 2. No evidence of hemorrhage or mass effect. 3. Chronic white matter changes. Tristen Sandoval MD Objective Remarks General: NAD, AAOx3 Chest: CTA Cardiac: Regular Abd: +BS, soft ND/NT Neuro: Dysarthria, RAUSCH A/P Problem List: (1) CVA (cerebral vascular accident) ICD Codes: I63.9 - Cerebral infarction, unspecified Status: Acute Plan: This is a 67-year-old female patient with past medical history which includes chronic kidney disease stage 3, diabetes mellitus type 2, embolic CVA, hypothyroidism, hyperlipidemia, sickle cell trait. Patient presents the emergency department today with complaints of slurred speech 3 days. 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 - CT reviewed and reveals new area of decreased attenuation involving the right posterior frontal and anterior parietal lobe was consistent with edema which could be secondary to infarction. MRI is recommended. No evidence of hemorrhage or mass effect. Chronic white matter changes - MRI Findings correlative with CT scan acute stroke diffusion abnormality in the right posterior frontal parietal region involving senior- white matter. There may be a second faint area slightly posterior to this in the parietal region of senior-white matter junction is subtle infarct - MRA no acute [place] vascular findings - US bilateral carotid arteries no significant atherosclerotic disease or stenosis is identified within either internal carotid artery. There is antegrade flow within both vertebral arteries - echocardiogram (07/08/17): Normal left ventricular size. The left ventricular systolic function is mildly reduced with an estimated ejection fraction in the range of 45-50%. [id number] mitral valve regurgitation. No aortic valve regurgitation. No aortic valve stenosis. There is mild tricuspid valve regurgitation. The estimated pulmonary arterial pressure is 44.1 mmHg. - continuous telemetry monitoring - Lipid profile reviewed and reveals an LDL of 21 - PT consulted - Speech consulted mechanical soft thin liquids - Neurology consult: Patient seen by Dr. Holm, appreciated input - Neurology impression failed Eliquis. 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 Assessment and plan formulated with Alisa Woodruff PA-C. I agree with the above. inr still subtherapeutic. neurology feels pt should remain here until therapeutic. will then dc with hhc and inr checks. Alisa Woodruff Jul 13, 2017 10:21 Asim Moreno MD Jul 13, 2017 11:59
[2017-07-13] MEDS: WARFARIN SOD 10 MG TAB PO SCH (16:30)
[2017-07-13] MEDS: ATORVASTATIN 80 MG TAB PO SCH (21:05)
[2017-07-14] VITALS (9 sets, daily range): BP systolic 125–161; BP diastolic 56–73; PULSE 73–88; RESP 16–19; TEMP 97.3–98.1; O2SAT 99–100
[2017-07-14] MEDS: LEVOTHYROXINE SODIUM 125 MCG TAB PO SCH (05:03)
[2017-07-14 07:14] LABS: INTERNATIONAL NORMALIZED RATIO 1.9 RATIO; PROTHROMBIN TIME - PATIENT 19.4 SEC (9.8-11.6)
[2017-07-14] MEDS: HEPARIN SODIUM - SQ 10,000 UNITS/ML VIAL SQ SCH ×2 (08:37→22:42)
[2017-07-14] MEDS: LISINOPRIL 5 MG TAB PO SCH (08:38)
[2017-07-14] MEDS: DOCUSATE SODIUM 100 MG CAP PO SCH ×2 (08:38→22:42)
[2017-07-14] MEDS: INSULIN ASPART SUPPLEMENTAL SCALE SQ SCH ×4 (08:38→22:45)
[2017-07-14] MEDS: SODIUM CHLORIDE 0.9% FLUSH 10 ML FLUSH IV FLUSH SCH ×2 (08:39→22:42)
[2017-07-14] MEDS: TIMOLOL MALEATE 0.5% OPHT SOLN 5 ML BTL EACH EYE SCH ×2 (08:39→22:43)
--- NOTE | 2017-07-14 12:14 | HHI.PR ---
Subjective Remarks no complaints Objective Vitals Vital Signs Date Time Temp Pulse Resp B/P (MAP) Pulse Ox O2 Delivery O2 Flow Rate FiO2 07/14/17 11:45 98.1 77 18 138/73 (94) 100 07/14/17 07:51 97.6 74 19 161/67 (98) 100 07/14/17 05:02 97.9 73 16 135/65 (88) 100 07/14/17 01:15 75 07/14/17 00:00 97.7 75 17 125/56 (79) 99 07/13/17 21:49 79 07/13/17 20:00 97.9 70 17 128/58 (81) 98 07/13/17 16:00 97.4 68 18 140/67 (91) 100 Result Diagram: 07/10/17 0710 07/12/17 0826 Imaging Last Impressions Chest X-Ray 07/07/17 1312 Signed Impressions: Service Date/Time: Friday, July 07, 2017 13:23 - CONCLUSION: 1. Normal examination. Keenan Sprague MD Head CT 07/07/17 1118 Signed Impressions: Service Date/Time: Friday, July 07, 2017 12:12 - CONCLUSION: 1. New area decreased attenuation involving the right posterior frontal and anterior parietal lobe most consistent with edema which could be secondary to infarction. MRI is recommended. 2. No evidence of hemorrhage or mass effect. 3. Chronic white matter changes. Tristen Sandoval MD A/P Problem List: (1) CVA (cerebral vascular accident) ICD Codes: I63.9 - Cerebral infarction, unspecified Status: Acute Plan: This is a 67-year-old female patient with past medical history which includes chronic kidney disease stage 3, diabetes mellitus type 2, embolic CVA, hypothyroidism, hyperlipidemia, sickle cell trait. Patient presents the emergency department today with complaints of slurred speech 3 days. 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 - CT reviewed and reveals new area of decreased attenuation involving the right posterior frontal and anterior parietal lobe was consistent with edema which could be secondary to infarction. MRI is recommended. No evidence of hemorrhage or mass effect. Chronic white matter changes - MRI Findings correlative with CT scan acute stroke diffusion abnormality in the right posterior frontal parietal region involving senior- white matter. There may be a second faint area slightly posterior to this in the parietal region of senior-white matter junction is subtle infarct - MRA no acute [place] vascular findings - [place] bilateral carotid arteries no significant atherosclerotic disease or stenosis is identified within either internal carotid artery. There is antegrade flow within both vertebral arteries - echocardiogram (07/08/17): Normal left ventricular size. The left ventricular systolic function is mildly reduced with an estimated ejection fraction in the range of 45-50%. [id number] mitral valve regurgitation. No aortic valve regurgitation. No aortic valve stenosis. There is mild tricuspid valve regurgitation. The estimated pulmonary arterial pressure is 44.1 mmHg. - continuous telemetry monitoring - Lipid profile reviewed and reveals an LDL of 21 - PT consulted - Speech consulted mechanical soft thin liquids - Neurology consult: Patient seen by Dr. Holm, appreciated input - Neurology impression failed Eliquis. recommendations Coumadin clear to discharge from neurology standpoint once INR > 1.9 - Neurology signed off - INR 1.6 on 07/13 - Coumadin increased to 10mg daily on 07/13.....inr 1.9 and neurology wants 2 or higher. 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
[2017-07-14] MEDS: WARFARIN SOD 10 MG TAB PO SCH (16:59)
[2017-07-14] MEDS: ATORVASTATIN 80 MG TAB PO SCH (22:42)
[2017-07-15 00:10] VITALS: BP 135/62; PULSE 76; RESP 17; TEMP 98.1; O2SAT 99
[2017-07-15 04:48] VITALS: BP 135/62; PULSE 74; RESP 17; TEMP 98.4; O2SAT 99
[2017-07-15] MEDS: LEVOTHYROXINE SODIUM 125 MCG TAB PO SCH (05:53)
[2017-07-15 08:00] VITALS: BP 121/58; PULSE 77; RESP 17; TEMP 98.2; O2SAT 97
[2017-07-15] MEDS: DOCUSATE SODIUM 100 MG CAP PO SCH (08:51)
[2017-07-15] MEDS: HEPARIN SODIUM - SQ 10,000 UNITS/ML VIAL SQ SCH (08:51)
[2017-07-15] MEDS: INSULIN ASPART SUPPLEMENTAL SCALE SQ SCH (08:51)
[2017-07-15] MEDS: TIMOLOL MALEATE 0.5% OPHT SOLN 5 ML BTL EACH EYE SCH (08:52)
[2017-07-15] MEDS: LISINOPRIL 5 MG TAB PO SCH (08:52)
[2017-07-15] MEDS: SODIUM CHLORIDE 0.9% FLUSH 10 ML FLUSH IV FLUSH SCH (08:52)
[2017-07-15 09:31] LABS: INTERNATIONAL NORMALIZED RATIO 2.4 RATIO; PROTHROMBIN TIME - PATIENT 24.1 SEC (9.8-11.6)
--- NOTE | 2017-07-15 09:40 | HHI.FF ---
Face to Face Verification Diagnosis: (1) Acute CVA (cerebrovascular accident) (2) Diabetes mellitus type 2, insulin dependent (3) Acute on chronic renal insufficiency (4) Hypertension, benign (5) Hx of diabetes mellitus (6) NADINE (acute kidney injury) (7) Altered mental status Physical Therapy Order: Evaluate and Treat Occupational Therapy Order: Evaluate and Treat Speech Therapy Order: To Improve: Speech and communication skills, Cognitive skills Home Health Nursing Order: Medical education Nursing assessment with vital signs Instructions: Check PT/INR on Monday07/17/17, Monday07/19/17, and Monday07/21/[address] Rizzo If INR is above 3 hold Coumadin and inform pts PCP I have seen patient Shelia Rangel on 07/15/17. My clinical findings support the need for the requested home health care services because: Deconditioned w/ increased weakness Impaired cognition/judgement High risk of falls I certify that my clinical findings support that this patient is homebound because: Impaired cognitive ability/safety Unsteady gait/balance Alisa Woodruff Jul 15, 2017 09:40 Asim Moreno MD Jul 15, 2017 10:15
[2017-07-15] MEDS ORDERED: COUM10TA PO (09:42)
[2017-07-15] MEDS ORDERED: WARF-21 PO (09:50)
--- NOTE | 2017-07-15 10:09 | HHI.DS ---
Discharge Summary Admission Date Jul 07, 2017 at 13:24 Discharge Date: Jul 15, 2017 Admitting Diagnosis stroke (1) CVA (cerebral vascular accident) Diagnosis: Principal ICD Codes: I63.9 - Cerebral infarction, unspecified Status: Acute (2) Hypothyroidism Diagnosis: Secondary ICD Codes: E03.9 - Hypothyroidism Status: Chronic (3) Diabetes mellitus type 2, insulin dependent Diagnosis: Secondary ICD Codes: E11.9 - Diabetes mellitus type 2, insulin dependent; Z79.4 - halfway (current) use of insulin Status: Chronic (4) Hypertension Diagnosis: Secondary ICD Codes: I10 - Hypertension Status: Chronic Consultants Dr. 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 Patient presents the emergency department today with complaints of slurred speech 3 days. 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 Patient reports she has been compliant with her Eliquis. Patient reports that since Monday she has been having slurred speech and difficulty with word finding. Other than the speech difficulties patient reports she feels to be in her normal state of health. Patient denies any focal weakness, headache or difficulty swallowing. Patient initially went to her primary care provider's office and was instructed to go to the emergency department patient refused EVAC and drive herself to the ER. Patient also denies shortness of breath chest pain nausea vomiting diarrhea constipation fevers or chills. Blood glucose 78 on arrival to the ER. CBC/BMP: 07/12/17 0826 Significant Findings Laboratory Tests Test 07/13/17 05:30 07/14/17 06:15 07/15/17 08:27 Prothrombin Time 16.4 SEC (9.8-11.6) 19.4 SEC (9.8-11.6) 24.1 SEC (9.8-11.6) Imaging Last Impressions Chest X-Ray 07/07/17 1312 Signed Impressions: Service Date/Time: Friday, July 07, 2017 13:23 - CONCLUSION: 1. Normal examination. Keenan Sprague MD Head CT 07/07/17 1118 Signed Impressions: Service Date/Time: Friday, July 07, 2017 12:12 - CONCLUSION: 1. New area decreased attenuation involving the right posterior frontal and anterior parietal lobe most consistent with edema which could be secondary to infarction. MRI is recommended. 2. No evidence of hemorrhage or mass effect. 3. Chronic white matter changes. Tristen Sandoval MD Head Magnetic Resonance Angiography 07/07/17 0000 Signed Impressions: Service Date/Time: Friday, July 07, 2017 15:08 - CONCLUSION: No acute [place] vascular findings. Martinez Goode MD Carotid Artery Ultrasound 07/07/17 0000 Signed Impressions: Service Date/Time: Friday, July 07, 2017 15:20 - CONCLUSION: 1. No significant atherosclerotic disease or stenosis is identified within either internal carotid artery. 2. There is antegrade flow within both vertebral arteries. Martinez Argueta MD Brain MRI 07/07/17 0000 Signed Impressions: Service Date/Time: Friday, July 07, 2017 15:08 - CONCLUSION: Findings correlative with CT scan acute stroke diffusion abnormality in the right posterior frontal parietal region involving senior-white matter. There may be a second faint area slightly posterior to this in the parietal region of senior-white matter junction subtle infarct. Venkatesh Joseph MD Hospital Course This is a 67-year-old female patient with past medical history which includes chronic kidney disease stage 3, diabetes mellitus type 2, embolic CVA, hypothyroidism, hyperlipidemia, sickle cell trait. Patient presents the emergency department today with complaints of slurred speech 3 days. 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 CT Head (07/07) revealed new area of decreased attenuation involving the right posterior frontal and anterior parietal lobe was consistent with edema which could be secondary to infarction, no evidence of hemorrhage or mass effect, chronic white matter changes. MRI Brain (07/07) with findings correlative with CT scan acute stroke diffusion abnormality in the right posterior frontal parietal region involving senior-white matter, may be a second faint area slightly posterior to this in the parietal region of senior-white matter junction is subtle infarct. MRA with no acute [place] vascular findings. Carotid US with no significant atherosclerotic disease or stenosis is identified within either internal carotid artery, there is antegrade flow within both vertebral arteries. 2D echocardiogram (07/08/17): Normal left ventricular size. The left ventricular systolic function is mildly reduced with an estimated ejection fraction in the range of 45-50%. [id number] mitral valve regurgitation. No aortic valve regurgitation. No aortic valve stenosis. There is mild tricuspid valve regurgitation. The estimated pulmonary arterial pressure is 44.1 mmHg. Pt had continuous telemetry monitoring without any evidence of dysrhythmia. Lipid profile reviewed and reveals an LDL of 21. PT/ST consulted. Speech consulted mechanical soft thin liquids. Neurology followed the pt during this admission and felt that the failed Eliquis. Pt was recommended to take Coumadin. Pt was started on 7.5mg of Coumadin but INR didn't increase much and pt was switched to 10mg of Coumadin. ON day of discharge INR is 2.4. We will discharge on alternating doses of Coumadin 10mg MoWeFr and 7.5mg TuThSaSu. She will have her INR checked on Monday07/17/17, Monday07/19/17, and Monday with results to Dr. Rizzo. I called Dr. Rizzo's office on 07/14 and spoke with her nurse Megan and relayed this information to her. Pt will need to followup with Dr. Rizzo next week Pt will need to followup with Dr. Holm in 2 weeks We will arrange for HHC/PT/OT/ST Pt Condition on Discharge: Stable Discharge Disposition: Disch w/ Home Health Serv Discharge Instructions DIET: Follow Instructions for: Diabetic Diet Speech Therapy-Diet Recommends: Mechanical Soft Activities you can perform: Regular-No Restrictions Follow up Referrals: Neurology - 2 Weeks with Darion Holm MD PCP Follow-up - [address] Rizzo New Medications: Warfarin (Warfarin) 7.5 Mg Tab 7.5 MG PO TuThSaSu for cva for 30 Days, TAB 0 Refills Warfarin (Coumadin) 10 Mg Tab 10 MG PO MoWeFr@1600 for cva for 30 Days, TAB Continued Medications: Aspirin (Aspir-81) 81 Mg Tab 81 MG PO DAILY, TAB Atorvastatin (Atorvastatin) 80 Mg Tab 80 MG PO HS for Cholesterol Management, #30 TAB 0 Refills Docusate Sodium (Colace 100 Mg Cap) 100 Mg Cap 100 MG PO BID for constipation for 14 Days, CAP Insulin Aspart (Novolog Insulin Supplemental Scale) 100 /Ml Inj 2-12 UNITS SQ TIDACHS for diabetes, #10 ML Max dose at bedtime:( )units; sugars less than 70, (0)units; sugars 150-199, (2)units; sugars 200-249, (4)units; sugars 250-299,(7)units; sugars 300-349, (10)units; sugars greater than 349, (12)units Insulin Detemir (Levemir Insulin) 100 Units/Ml Inj 10 UNITS SQ HS for diabetes for 30 Days, UNITS Insulin Detemir (Levemir Insulin) 100 Units/Ml Inj 10 UNITS SQ DAILY for diabetes for 30 Days, UNITS Levothyroxine Sodium (Synthroid) 88 Mcg Tab 125 MCG PO DAILY Lisinopril 10 mg (Lisinopril 10 mg) 10 Mg Tab 5 MG PO DAILY, TAB Timolol Maleate (Ophth) (Timolol Maleate) 0.5 % Kathleen 1 DROP EACH EYE BID, KATHLEEN Discontinued Medications: Ciprofloxacin Hcl (Cipro) 250 Mg Tab 250 MG PO Q12 for uti for 5 Days, TAB Alisa Woodruff Jul 15, 2017 10:09 Asim Moreno MD Jul 15, 2017 10:15
== END 2017-07-15 12:44 | disposition home health service (06) | DRG 64 ==
LOC: NEPC 10:55 → NEDA 13:24 → N05A 17:17
PROVIDERS: ADMIT Hospitalist; ATTEND Hospitalist
DX: I63.511 Cerebral infarction due to unspecified occlusion or stenosis of right middle cerebral artery (principal); G93.6 Cerebral edema; I69.351 Hemiplegia and hemiparesis following cerebral infarction affecting right dominant side; E11.22 Type 2 diabetes mellitus with diabetic chronic kidney disease; R47.81 Slurred speech; E03.9 Hypothyroidism, unspecified; D57.3 Sickle-cell trait; I12.9 Hypertensive chronic kidney disease with stage 1 through stage 4 chronic kidney disease, or unspecified chronic kidney disease; N18.3 Chronic kidney disease, stage 3 (moderate); E78.00 Pure hypercholesterolemia, unspecified; I07.1 Rheumatic tricuspid insufficiency; E86.0 Dehydration; Z87.891 Personal history of nicotine dependence; Z79.01 Long term (current) use of anticoagulants; Z79.4 Long term (current) use of insulin
CPT/HCPCS: 70450; 70544; 70551; 71045; 80048; 80053; 80061; 81001; 82947; 82948; 84439; 84443; 84484; 85025; 85610; 85730; 93005; 93225; 93226; 93306; 93880; J1644; J1815; J7030

== ENCOUNTER 2017-08-09 12:14 | Inpatient (IN) | payer MEDICARE ==
[~2017-08-09] VITALS: Ht 162.6 cm; Wt 76.4 kg
[2017-08-09] VITALS (14 sets, daily range): BP systolic 112–155; BP diastolic 55–70; PULSE 79–115; RESP 12–18; TEMP 96.2–99; O2SAT 88–100
[~2017-08-09 12:14] MED LIST changes: -ATOR40TA49 PO; +ATOR80TA45 PO; -CIPR1TAB50 PO; +COUM10TA PO; +WARF-21 PO
[2017-08-09 12:57] LABS: AUTOMATED NEUTROPHIL # 9.5 TH/MM3 (1.8-7.7); BASOPHIL # 0.1 TH/MM3 (0-0.2); BASOPHIL % 0.6 % (0.0-2.0); EOSINOPHIL % 0.2 % (0.0-4.0); LYMPHOCYTE # 1.1 TH/MM3 (1.0-4.8); MEAN CELL VOLUME 97.3 FL (80.0-100.0); MEAN CORPUSCULAR HEMOGLOBIN 31.7 PG (27.0-34.0); MEAN CORPUSCULAR HGB CONC 32.6 % (32.0-36.0); MEAN PLATELET VOLUME 10.3 FL (7.0-11.0); MONO % 3.5 % (0.0-8.0); MONOCYTE # 0.4 TH/MM3 (0-0.9); NEUT % 85.7 % (16.0-70.0); PLATELET COUNT 179 TH/MM3 (150-450); RED BLOOD COUNT 1.49 MIL/MM3 (4.00-5.30); RED CELL DISTRIBUTION WIDTH 15.4 % (11.6-17.2); WHITE BLOOD COUNT 11.1 TH/MM3 (4.0-11.0)
[2017-08-09 13:03] LABS: HEMATOCRIT 14.5 % (35.0-46.0); HEMOGLOBIN 4.7 GM/DL (11.6-15.3)
[2017-08-09 13:17] LABS: ALBUMIN 3.4 GM/DL (3.4-5.0); AST (GOT) 21 U/L (15-37); BICARBONATE 22.5 MEQ/L (21.0-32.0); BLOOD UREA NITROGEN 53 MG/DL (7-18); CHLORIDE 107 MEQ/L (98-107); CREATININE 1.66 MG/DL (0.50-1.00); GLOMERULAR FILTRATION RATE 38 ML/MIN (>89); GLUCOSE,RANDOM 205 MG/DL (74-106); SODIUM (NA) 138 MEQ/L (136-145)
[2017-08-09 13:20] LABS: ALKALINE PHOSPHATASE 42 U/L (45-117); ALT (GPT) 23 U/L (10-53); TOTAL BILIRUBIN ADULT 0.5 MG/DL (0.2-1.0); TOTAL PROTEIN 6.6 GM/DL (6.4-8.2)
[2017-08-09] MEDS ORDERED: ASPIRIN 81 MG CHEW TAB CHEW ONE (13:30)
[2017-08-09] MEDS ORDERED: SODIUM CHLOR 0.9% 250 ML INJ 250 ML IV ONE ×2 (13:45→16:15)
[2017-08-09] MEDS ORDERED: PANTOPRAZOLE INJ 80 MG in SODIUM CHLORIDE 0.9% INJ 35 ML IV ONE (13:45)
[2017-08-09] MEDS ORDERED: PANTOPRAZOLE INJ 80 MG in SODIUM CHLORIDE 0.9% INJ 100 ML IV SCH (13:45)
[2017-08-09] MEDS ORDERED: FLUT50SP EACH NARE (14:24)
[2017-08-09] MEDS ORDERED: LATA0.002 EACH EYE (14:24)
[2017-08-09] MEDS ORDERED: ASPI81TA23 PO (14:24)
[2017-08-09] MEDS ORDERED: ARTIDRO EACH EYE (14:24)
[2017-08-09] MEDS ORDERED: LEVO112T2 PO (14:24)
[2017-08-09] MEDS ORDERED: NOVOINJ3 SQ (14:25)
[2017-08-09] MEDS ORDERED: VITA100018 PO (14:25)
[2017-08-09] MEDS ORDERED: INSU1INJ14 SQ (14:25)
[2017-08-09] MEDS ORDERED: MULTTAB67 PO (14:25)
[2017-08-09] MEDS ORDERED: METF500T PO (14:25)
[2017-08-09] MEDS ORDERED: PIOG15TA5 PO (14:25)
[2017-08-09 15:43] LABS: INTERNATIONAL NORMALIZED RATIO 3.3 RATIO; PROTHROMBIN TIME - PATIENT 33.3 SEC (9.8-11.6)
--- NOTE | 2017-08-09 16:33 | PD ---
HPI Chief Complaint: Abnormal Results Time Seen by Provider: 13:18 Travel History International Travel<30 days: No Contact w/Intl Traveler<30days: No Traveled to known affect area: No History of Present Illness HPI Patient is a 67-year-old female who comes in complaining of weakness. She has been following with her doctor, and has been noted to have anemia over the past few weeks. She is on Coumadin, and it was noticed she had an elevated INR as well. She has not taken the Coumadin for a few days because of this. She has history of stroke in the past. She says she has not noticed any dark or bloody stools. She denies chest pain or shortness of breath or palpitations. She denies any recent falls. Severity is moderate. PFSH Past Medical History Hx Anticoagulant Therapy: Yes (ELIQUIS) Arthritis: Yes (LEFT KNEE, RIGHT SHOULDER.) Asthma: No Autoimmune Disease: No Blood Disorders: No Anxiety: No Depression: No Heart Rhythm Problems: No Cancer: No Cardiovascular Problems: No High Cholesterol: Yes Chemotherapy: No Chest Pain: Yes Congestive Heart Failure: Yes COPD: No Cerebrovascular Accident: Yes Coronary Artery Disease: Yes Diabetes: Yes Patient Takes Glucophage: Yes Diminished Hearing: No Endocrine: Yes GERD: No Glaucoma: No Genitourinary: No Headaches: No Hepatitis: No Hiatal Hernia: No Hypertension: Yes Immune Disorder: No Kidney Stones: No Musculoskeletal: Yes (ARTHRITIS) Neurologic: Yes (CVA) Psychiatric: No Reproductive: No Respiratory: No Immunizations Current: No Myocardial Infarction: No Pancreatitis: Yes Radiation Therapy: No Renal Failure: No Seizures: No Sickle Cell Disease: No Sleep Apnea: No Thyroid Disease: Yes Triglycerides - High: Yes Ulcer: No PNEUMOCCOCAL Vaccine (Year): 2 Menopausal: Yes : 3 Para: 3 Miscarriage: 0 : 0 Tubal Ligation: Yes (1981) Past Surgical History Abdominal Surgery: Yes AICD: No Arteriovenous Shunt: No Cardiac Surgery: No Ear Surgery: No Endocrine Surgery: No Eye Surgery: No Genitourinary Surgery: No Gynecologic Surgery: Yes (Tubal ligation) Insulin Pump: No Joint Replacement: No Oral Surgery: No Pacemaker: No Thoracic Surgery: No Other Surgery: Yes Social History Alcohol Use: No Tobacco Use: No Substance Use: No Allergies-Medications (Allergen,Severity, Reaction): Coded Allergies: latanoprost (Unverified Allergy, Severe, Swelling, 08/09/17) house dust (Unverified Allergy, Mild, CONGESTION, SNEEZING, 08/09/17) pollen extracts (Unverified Allergy, Mild, CONGESTION, SNEEZING, 08/09/17) Reported Meds & Prescriptions Reported Meds & Active Scripts Active Warfarin 7.5 Mg Tab 7.5 Mg PO TUTHSASU 30 Days Reported Vitamin D3 (Cholecalciferol) 1,000 Unit Tab 1,000 Units PO DAILY Tresiba Flextouch Pen Inj (Insulin Degludec Inj) 300 unit/3 ML Pen 78 Units SQ TID Pioglitazone (Pioglitazone HCl) 15 Mg Tab 15 Mg PO DAILY Novolog Flexpen Inj (Insulin Aspart) 300 Unit/3 Ml Pen 10 Units SQ Multiple Vitamin 1 Tab 1 Tab PO DAILY Metformin (Metformin HCl) 500 Mg Tab 500 Mg PO DAILY With a meal Levothyroxine (Levothyroxine Sodium) 112 Mcg Tab 112 Mcg PO DAILY Latanoprost Opth Drops (Latanoprost) 0.005% Drops 1 Drop EACH EYE HS Refrigerate until opened. Fluticasone Nasal [place] 50 Mcg/Act Naspr 50 Mcg EACH NARE DAILY 50 mcg/spray Aspirin EC (Aspirin) 81 Mg Tabdr 81 Mg PO DAILY Artificial Tears Opth Drops (Propylene Glycol-Glycerin Opth Drops) 1-0.3% Drops 1-2 Drop EACH EYE PRN PRN Atorvastatin (Atorvastatin Calcium) 80 Mg Tab 80 Mg PO HS Review of Systems Except as stated in HPI: all other systems reviewed are Neg General / Constitutional: No: Fever, Chills HENT: No: Headaches Cardiovascular: No: Chest Pain or Discomfort, Palpitations Respiratory: No: Shortness of Breath Gastrointestinal: No: Nausea, Vomiting Musculoskeletal: No: Edema Neurologic: Positive: Weakness Physical Exam Narrative GENERAL: Awake and alert, in no acute distress. SKIN: Focused skin assessment warm/dry. Pale in color. HEAD: Atraumatic. Normocephalic. EYES: Pupils equal and round. No scleral icterus. Conjunctival pallor. ENT: Mucous membranes pink and moist. NECK: Trachea midline. No JVD. CARDIOVASCULAR: Regular rate and rhythm. No murmur appreciated. RESPIRATORY: No accessory muscle use. Clear to auscultation. Breath sounds equal bilaterally. GASTROINTESTINAL: Abdomen soft, non-tender, nondistended. RECTAL: Brown stool, positive for blood. MUSCULOSKELETAL: No obvious deformities. No clubbing. No cyanosis. No edema. NEUROLOGICAL: Awake and alert. No obvious cranial nerve deficits. Motor grossly within normal limits. Normal speech. PSYCHIATRIC: Appropriate mood and affect; insight and judgment normal. Data Data Last Documented VS Vital Signs Date Time Temp Pulse Resp B/P (MAP) Pulse Ox O2 Delivery O2 Flow Rate FiO2 08/09/17 15:15 99.0 100 12 118/58 98 08/09/17 13:35 Room Air Orders Orders Complete Blood Count With Diff (08/09/17 12:25) Comprehensive Metabolic Panel (08/09/17 12:25) Type And Screen (08/09/17 12:25) Aspirin Chew (Aspirin Chew) (08/09/17 13:30) Act Partial Throm Time (Ptt) (08/09/17 13:36) Prothrombin Time / Inr (Pt) (08/09/17 13:36) Red Blood Cells (Rbc) (08/09/17 13:36) Blood Product Administration (08/09/17 13:36) Sodium Chlor 0.9% 250 Ml Inj (Ns 250 Ml (08/09/17 13:45) Pantoprazole Inj (Protonix Inj) (08/09/17 13:45) Pantoprazole Inj (Protonix Inj) (08/09/17 13:45) Fresh Frozen Plasma (Ffp) (08/09/17 16:15) Blood Product Administration (08/09/17 16:15) Sodium Chlor 0.9% 250 Ml Inj (Ns 250 Ml (08/09/17 16:15) Labs Laboratory Tests Test 08/09/17 12:35 08/09/17 15:19 White Blood Count 11.1 TH/MM3 Red Blood Count 1.49 MIL/MM3 Hemoglobin 4.7 GM/DL Hematocrit 14.5 % Mean Corpuscular Volume 97.3 FL Mean Corpuscular Hemoglobin 31.7 PG Mean Corpuscular Hemoglobin Concent 32.6 % Red Cell Distribution Width 15.4 % Platelet Count 179 TH/MM3 Mean Platelet Volume 10.3 FL Neutrophils (%) (Auto) 85.7 % Lymphocytes (%) (Auto) 10.0 % Monocytes (%) (Auto) 3.5 % Eosinophils (%) (Auto) 0.2 % Basophils (%) (Auto) 0.6 % Neutrophils # (Auto) 9.5 TH/MM3 Lymphocytes # (Auto) 1.1 TH/MM3 Monocytes # (Auto) 0.4 TH/MM3 Eosinophils # (Auto) 0.0 TH/MM3 Basophils # (Auto) 0.1 TH/MM3 CBC Comment DIFF FINAL Differential Comment Blood Urea Nitrogen 53 MG/DL Creatinine 1.66 MG/DL Random Glucose 205 MG/DL Total Protein 6.6 GM/DL Albumin 3.4 GM/DL Calcium Level 9.0 MG/DL Alkaline Phosphatase 42 U/L Aspartate Amino Transf (AST/SGOT) 21 U/L Alanine Aminotransferase (ALT/SGPT) 23 U/L Total Bilirubin 0.5 MG/DL Sodium Level 138 MEQ/L Potassium Level 5.0 MEQ/L Chloride Level 107 MEQ/L Carbon Dioxide Level 22.5 MEQ/L Anion Gap 9 MEQ/L Estimat Glomerular Filtration Rate 38 ML/MIN Prothrombin Time 33.3 SEC Prothromb Time International Ratio 3.3 RATIO Activated Partial Thromboplast Time 28.7 SEC MDM Medical Decision Making Medical Screen Exam Complete: Yes Emergency Medical Condition: Yes Medical Record Reviewed: Yes Differential Diagnosis GI bleed versus coagulopathy versus anemia Narrative Course Patient is a 67-year-old female who comes in due to generalized weakness. She is very pale in color. Stools positive for blood. IV status, labs sent. Labs show a hemoglobin of 4.7, INR is 3.3. Patient given 2 units of packed red blood cells. FFP ordered. Patient will be admitted for further management. HemaPrompt Point of Care Internal Pos. & Neg. Controls: Passed Fecal Specimen Occult Blood: Positive Diagnosis Primary Impression: Anemia Qualified Codes: D64.9 - Anemia, unspecified Additional Impression: GI bleed Qualified Codes: K92.2 - Gastrointestinal hemorrhage, unspecified Admitting Information Admitting Physician Requests: Admit Madeline Terrazas MD Aug 09, 2017 16:33
--- NOTE | 2017-08-09 16:39 | HHI.HP ---
HPI Service [facility] Hospitalists Primary Care Physician Judi Rizzo MD Admission Diagnosis GI bleed, anemia Chief Complaint: Anemia Travel History International Travel<30 Days: No Contact w/Intl Traveler <30 Da: No Traveled to Known Affected Are: No History of Present Illness Ms. 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 Pt had previously been on Eliquis after her CVA. One month ago she was admitted for changes in her speech and was found to have had another acute CVA. Pt was seen by Neurology and felt to have failed Eliquis and was started on Coumadin. She had previously been on Coumadin 10mg and 7.5mg on at the time of her discharge from her recent hospitalization. Pt had outpt labs on 08/02 which noted supra- therapeutic INR of 5.2 and she was noted to be anemic with Hgb 8.8. Pt was to hold her Coumadin for 2 days and then continue just on 7.5mg po daily. She reports that over the last few days she has had increased weakness and had a difficult time doing light housework around the house yesterday. She saw her PCP who sent her for repeat labs today and then to the ED for further evaluation. Her labs at admission noted Hgb 4.7/Hct 14.5. She denies any noted melena or BRBPR and no change in her bowel movements recently. In the ED the pt was noted to be guaiac positive with noted melanotic stool. She denies any dizziness or lightheadedness. Pt reports that she was supposed to be seen at [facility] this coming Monday for evaluation of anemia. Previous colonoscopy 09/13/[address] Gonzalez noted sessile polyp in the sigmoid colon, diminutive polyp in the rectum, small internal hemorrhoids. She denies any hx of ulcers. She takes ASA 81mg po daily but denies any other NSAID use. She has used Tylenol occasionally. Denies any GERD or dysphagia. She had some nausea today but no vomiting. Denies any abdominal pain, constipation or diarrhea. Denies any chest pain, SOB or palpitations. Review of Systems Constitutional: COMPLAINS OF: Fatigue, DENIES: Dizziness Eyes: DENIES: Vision loss Respiratory: DENIES: Cough, Shortness of breath Cardiovascular: DENIES: Chest pain, Palpitations, Lower Extremity Edema Gastrointestinal: COMPLAINS OF: Black stools, Nausea, DENIES: Abdominal pain, Constipation, Diarrhea, GERD, Reflux, Vomiting Genitourinary: DENIES: Hematuria Musculoskeletal: DENIES: Back pain Integumentary: DENIES: Rash Neurologic: DENIES: Headache Psychiatric: DENIES: Confusion Past Family Social History Past Medical History Chronic kidney disease stage 3 Diabetes mellitus type 2 Embolic CVA Hypothyroidism Hyperlipidemia Sickle cell trait Past Surgical History Anterior chamber laser left eye Breast biopsy Total abdominal hysterectomy Colonoscopy 09/13/[address] Gonzalez --> sessile polyp in the sigmoid colon, diminutive polyp in the rectum, small internal hemorrhoids. Reported Medications -Warfarin 7.5 Mg PO DAILY -Vitamin D3 1,000 Units PO DAILY -Tresiba Flextouch Pen Inj 78 Units SQ DAILY -Pioglitazone 15 Mg PO DAILY -Novolog Flexpen Inj (Insulin Aspart) 300 Unit/3 Ml Pen 10 Units SQ TID -Multiple Vitamin 1 Tab PO DAILY -Metformin 500 Mg PO DAILY -Levothyroxine 112 Mcg PO DAILY -Latanoprost Opth Drops 1 Drop EACH EYE HS -Fluticasone Nasal [place] 50 Mcg/Act Naspr 50 Mcg EACH NARE DAILY -Aspirin EC 81 Mg PO DAILY -Artificial Tears Opth Drops 1-0.3% Drops 1-2 Drop EACH EYE PRN PRN -Atorvastatin 80 Mg PO HS Allergies: Coded Allergies: latanoprost (Unverified Allergy, Severe, Swelling, 08/09/17) house dust (Unverified Allergy, Mild, CONGESTION, SNEEZING, 08/09/17) pollen extracts (Unverified Allergy, Mild, CONGESTION, SNEEZING, 08/09/17) Family History Noncontributory Social History Denies any alcohol, tobacco or illicit drug use Physical Exam Vital Signs Vital Signs Date Time Temp Pulse Resp B/P (MAP) Pulse Ox O2 Delivery O2 Flow Rate FiO2 08/09/17 15:15 99.0 100 12 118/58 98 08/09/17 14:59 98.0 100 14 119/55 98 08/09/17 13:35 103 14 143/63 (89) 88 Room Air 08/09/17 12:21 98.1 115 18 112/70 (84 95 Physical Exam GENERAL: This is a well-nourished, well-developed patient, in no apparent distress. SKIN: No rashes, ecchymoses or lesions. Cool and dry. HEENT: Atraumatic. Normocephalic. No temporal or scalp tenderness. No scleral icterus. Airway patent. NECK: Trachea midline, supple, nontender. CARDIO: Regular. RESP: CTA bilaterally. No wheezes, rales, or rhonchi. ABD: +BS, soft, non-tender, nondistended. EXT: Extremities without clubbing, cyanosis, or edema. NEURO: Awake and alert. Right sided weakness. Normal speech. Laboratory Laboratory Tests Test 08/09/17 12:35 08/09/17 15:19 White Blood Count 11.1 Red Blood Count 1.49 Hemoglobin 4.7 Hematocrit 14.5 Mean Corpuscular Volume 97.3 Mean Corpuscular Hemoglobin 31.7 Mean Corpuscular Hemoglobin Concent 32.6 Red Cell Distribution Width 15.4 Platelet Count 179 Mean Platelet Volume 10.3 Neutrophils (%) (Auto) 85.7 Lymphocytes (%) (Auto) 10.0 Monocytes (%) (Auto) 3.5 Eosinophils (%) (Auto) 0.2 Basophils (%) (Auto) 0.6 Neutrophils # (Auto) 9.5 Lymphocytes # (Auto) 1.1 Monocytes # (Auto) 0.4 Eosinophils # (Auto) 0.0 Basophils # (Auto) 0.1 CBC Comment DIFF FINAL Differential Comment Blood Urea Nitrogen 53 Creatinine 1.66 Random Glucose 205 Total Protein 6.6 Albumin 3.4 Calcium Level 9.0 Alkaline Phosphatase 42 Aspartate Amino Transf (AST/SGOT) 21 Alanine Aminotransferase (ALT/SGPT) 23 Total Bilirubin 0.5 Sodium Level 138 Potassium Level 5.0 Chloride Level 107 Carbon Dioxide Level 22.5 Anion Gap 9 Estimat Glomerular Filtration Rate 38 Prothrombin Time 33.3 Prothromb Time International Ratio 3.3 Activated Partial Thromboplast Time 28.7 Result Diagram: 08/09/17 1235 08/09/17 1235 Caprini VTE Risk Assessment Caprini VTE Risk Assessment: Mod/High Risk (score >= 2) Caprini Risk Assessment Model Point Value = 1 Point Value = 2 Point Value = 3 Point Value = 5 Age 41-60 Minor surgery BMI > 25 kg/m2 Swollen legs Varicose veins or History of unexplained or recurrent spontaneous Oral contraceptives or hormone replacement Sepsis (< 1 month) Serious lung disease, including pneumonia (< 1 month) Abnormal pulmonary function Acute myocardial infarction Congestive heart failure (< 1 month) History of inflammatory bowel disease Medical patient at bed rest Age 61-74 Arthroscopic surgery Major open surgery (> 45 min) Laparoscopic surgery (> 45 min) Malignancy Confined to bed (> 72 hours) Immobilizing plaster cast Central venous access Age >= 75 History of VTE Family history of VTE Factor V Leiden Prothrombin [id number] Lupus anticoagulant Anticardiolipin antibodies Elevated serum homocysteine Heparin-induced thrombocytopenia Other congenital or acquired thrombophilia Stroke (< 1 month) Elective arthroplasty Hip, pelvis, or leg fracture Acute spinal cord injury (< 1 month) Prophylaxis Regimen Total Risk Factor Score Risk Level Prophylaxis Regimen 0-1 Low Early ambulation 2 Moderate Order ONE of the following: *Sequential Compression Device (SCD) *Heparin 5000 units SQ BID 3-4 Higher Order ONE of the following medications: *Heparin 5000 units SQ TID *Enoxaparin/Lovenox 40 mg SQ daily (WT < 150 kg, CrCl > 30 mL/min) *Enoxaparin/Lovenox 30 mg SQ daily (WT < 150 kg, CrCl > 10-29 mL/min) *Enoxaparin/Lovenox 30 mg SQ BID (WT < 150 kg, CrCl > 30 mL/min) AND/OR *Sequential Compression Device (SCD) 5 or more Highest Order ONE of the following medications: *Heparin 5000 units SQ TID (Preferred with Epidurals) *Enoxaparin/Lovenox 40 mg SQ daily (WT < 150 kg, CrCl > 30 mL/min) *Enoxaparin/Lovenox 30 mg SQ daily (WT < 150 kg, CrCl > 10-29 mL/min) *Enoxaparin/Lovenox 30 mg SQ BID (WT < 150 kg, CrCl > 30 mL/min) AND *Sequential Compression Device (SCD) Assessment and Plan Problem List: (1) Anemia ICD Codes: D64.9 - Anemia, unspecified Status: Acute Plan: Anemia GIB, hemoccult positive stool Recent CVA on anticoagulation with Coumadin - Pt is a 67 y/o AAF with chronic kidney disease stage 3, diabetes mellitus type 2, hypothyroidism, hyperlipidemia, sickle cell trait, and 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 Pt had previously been on Eliquis after her CVA. One month ago she was admitted for changes in her speech and was found to have had another acute CVA. Pt was seen by Neurology and felt to have failed Eliquis and was started on Coumadin. She had previously been on Coumadin 10mg and 7.5mg on at the time of her discharge from her recent hospitalization. - Pt had outpt labs on 08/02 which noted supra-therapeutic INR of 5.2 and she was noted to be anemic with Hgb 8.8. Pt was to hold her Coumadin for 2 days and then continue just on 7.5mg po daily. She reports that over the last few days she has had increased weakness and had a difficult time doing light housework around the house yesterday. She saw her PCP today who sent her for repeat labs today and then to the ED for further evaluation. - Her labs at admission noted Hgb 4.7/Hct 14.5. In the ED the pt was noted to be guaiac positive with noted melanotic stool. - INR at admission was 3.3 - Previous colonoscopy 09/13/[address] Gonzalez noted sessile polyp in the sigmoid colon, diminutive polyp in the rectum, small internal hemorrhoids. - Pt to be transfused with 2 units PRBCs and pt is being given FFP from the ED - Consult GI - Repeat H/H this evening - Protonix IV - Pt is NPO except meds - Check PT/INR in AM - Supportive care - Further recommendations as the case develops Recent CVA - Pt had been on Eliquis previously but was found to have had an acute CVA in 06/2017 - Pt was changed to Coumadin during that admission in 06/2017 - Coumadin on hold for now - Pt to be given FFP Diabetes mellitus - Hold home meds for now - NovoLog SSI - Accu checks HTN - Monitor Hypothyroidism - Home meds continued (2) GI bleed ICD Codes: K92.2 - Gastrointestinal hemorrhage, unspecified Status: Acute (3) CVA (cerebral vascular accident) ICD Codes: I63.9 - Cerebral infarction, unspecified Status: Acute (4) Diabetes mellitus type 2, insulin dependent ICD Codes: E11.9 - Diabetes mellitus type 2, insulin dependent; 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 In the case of services not specified as inpatient-only, they are appropriately provided as inpatient services in accordance with the 2-midnight benchmark. Estimated LOS (days): 3 3 days is the estimated time the patient will need to remain in the hospital, assuming treatment plan goals are met and no additional complications. Post-Hospital Plan: Not yet determined Problem Qualifiers (1) Anemia: Qualified Codes: D64.9 - Anemia, unspecified (2) GI bleed: Qualified Codes: K92.2 - Gastrointestinal hemorrhage, unspecified Alisa Woodruff Aug 09, 2017 16:39 Aism Moreno MD Aug 10, 2017 16:10
[2017-08-09] MEDS ORDERED: WARF-21 PO (17:21)
[2017-08-09] MEDS: INSULIN ASPART SUPPLEMENTAL SCALE SQ SCH ×2 (20:00→23:58)
[2017-08-09 22:22] LABS: HEMATOCRIT 16.7 % (35.0-46.0); HEMOGLOBIN 5.7 GM/DL (11.6-15.3)
[2017-08-09] MEDS: LATANOPROST 0.005% OPHT SOLN 2.5 ML BTL EACH EYE SCH (22:27)
[2017-08-10] VITALS (17 sets, daily range): BP systolic 101–142; BP diastolic 57–80; PULSE 80–103; RESP 14–18; TEMP 96.3–99.1; O2SAT 94–98
[2017-08-10] MEDS: INSULIN ASPART SUPPLEMENTAL SCALE SQ SCH ×5 (04:00→20:00)
[2017-08-10] MEDS: LEVOTHYROXINE SODIUM 112 MCG TAB PO SCH (06:17)
--- NOTE | 2017-08-10 09:28 | HHI.PR ---
Subjective Remarks Pt has received 6 units of FFP and 2 units of PRBCs No noted melena or BRBPR per the pt and nursing staff She is overall feeling better this morning, less fatigue/generalized weakness Objective Vitals Vital Signs Date Time Temp Pulse Resp B/P (MAP) Pulse Ox O2 Delivery O2 Flow Rate FiO2 08/10/17 08:50 96.8 96 17 135/61 96 08/10/17 08:32 98.1 101 17 129/60 95 08/10/17 08:00 98.1 101 17 129/60 (83) 95 08/10/17 04:40 98.6 102 14 124/60 95 08/10/17 04:17 98.2 103 14 122/57 94 08/10/17 04:00 98.2 103 14 122/57 (78) 94 08/10/17 01:33 99.1 94 14 124/60 97 08/10/17 01:08 98.5 88 18 101/57 98 08/10/17 00:00 98.5 84 18 117/59 (78) 97 08/09/17 23:11 98.6 98 14 128/62 95 08/09/17 22:45 98.4 96 14 130/58 96 08/09/17 21:07 96.2 104 14 125/59 98 08/09/17 20:38 98.0 79 18 122/58 99 08/09/17 20:00 98.0 79 18 122/58 (79) 99 08/09/17 18:48 08/09/17 18:23 98.6 97 17 155/69 98 08/09/17 17:25 98.9 95 15 142/63 100 08/09/17 17:06 98.3 96 15 134/65 97 08/09/17 15:15 99.0 100 12 118/58 98 08/09/17 14:59 98.0 100 14 119/55 98 08/09/17 13:35 103 14 143/63 (89) 88 Room Air 08/09/17 12:21 98.1 115 18 112/70 (84) 95 08/10/17 08/10/17 08/11/17 15:00 23:00 07:00 Intake Total 400 ml Balance 400 ml Packed Cells 400 ml Result Diagram: 08/09/178 08/09/17 1235 Other Results Laboratory Tests Test 08/09/17 12:35 08/09/17 15:19 08/09/17 21:39 08/10/17 08:55 White Blood Count 11.1 TH/MM3 Red Blood Count 1.49 MIL/MM3 Hemoglobin 4.7 GM/DL 5.7 GM/DL Hematocrit 14.5 % 16.7 % Mean Corpuscular Volume 97.3 FL Mean Corpuscular Hemoglobin 31.7 PG Mean Corpuscular Hemoglobin Concent 32.6 % Red Cell Distribution Width 15.4 % Platelet Count 179 TH/MM3 Mean Platelet Volume 10.3 FL Neutrophils (%) (Auto) 85.7 % Lymphocytes (%) (Auto) 10.0 % Monocytes (%) (Auto) 3.5 % Eosinophils (%) (Auto) 0.2 % Basophils (%) (Auto) 0.6 % Neutrophils # (Auto) 9.5 TH/MM3 Lymphocytes # (Auto) 1.1 TH/MM3 Monocytes # (Auto) 0.4 TH/MM3 Eosinophils # (Auto) 0.0 TH/MM3 Basophils # (Auto) 0.1 TH/MM3 CBC Comment DIFF FINAL Differential Comment Blood Urea Nitrogen 53 MG/DL Creatinine 1.66 MG/DL Random Glucose 205 MG/DL Total Protein 6.6 GM/DL Albumin 3.4 GM/DL Calcium Level 9.0 MG/DL Alkaline Phosphatase 42 U/L Aspartate Amino Transf (AST/SGOT) 21 U/L Alanine Aminotransferase (ALT/SGPT) 23 U/L Total Bilirubin 0.5 MG/DL Sodium Level 138 MEQ/L Potassium Level 5.0 MEQ/L Chloride Level 107 MEQ/L Carbon Dioxide Level 22.5 MEQ/L Anion Gap 9 MEQ/L Estimat Glomerular Filtration Rate 38 ML/MIN Prothrombin Time 33.3 SEC Prothromb Time International Ratio 3.3 RATIO Activated Partial Thromboplast Time 28.7 SEC Objective Remarks General: NAD, AAOx3 Chest: CTA Cardiac: Regular Abd: +BS, soft ND/NT Ext: Right sided weakness, chronic A/P Problem List: (1) Anemia ICD Codes: D64.9 - Anemia, unspecified Status: Acute Plan: Anemia GIB, hemoccult positive stool Recent CVA on anticoagulation with Coumadin - Pt is a 67 y/o AAF with chronic kidney disease stage 3, diabetes mellitus type 2, hypothyroidism, hyperlipidemia, sickle cell trait, and 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 Pt had previously been on Eliquis after her CVA. One month ago she was admitted for changes in her speech and was found to have had another acute CVA. Pt was seen by Neurology and felt to have failed Eliquis and was started on Coumadin. She had previously been on Coumadin 10mg and 7.5mg on at the time of her discharge from her recent hospitalization. - Pt had outpt labs on 08/02 which noted supra-therapeutic INR of 5.2 and she was noted to be anemic with Hgb 8.8. Pt was to hold her Coumadin for 2 days and then continue just on 7.5mg po daily. She reports that over the last few days she has had increased weakness and had a difficult time doing light housework around the house yesterday. She saw her PCP today who sent her for repeat labs today and then to the ED for further evaluation. - Her labs at admission noted Hgb 4.7/Hct 14.5. In the ED the pt was noted to be guaiac positive with noted melanotic stool. - INR at admission was 3.3 - Previous colonoscopy 09/13/[address] Gonzalez noted sessile polyp in the sigmoid colon, diminutive polyp in the rectum, small internal hemorrhoids. - Pt has been transfused with 2 units PRBCs and 6 units of FFP - GI consult is pending. - Repeat H/H yesterday evening after one unit noted Hgb 5.7/Hct 16.7. She has a repeat CBC pending this morning after receiving second unit of PRBCs. - 2 more units of PRBCs are on hold to be given pending the repeat CBC this morning. - Protonix IV - Pt is NPO except meds - PT/INR are pending this morning. - Supportive care - Further recommendations as the case develops Recent CVA - Pt had been on Eliquis previously but was found to have had an acute CVA in 06/2017 - Pt was changed to Coumadin during that admission in 06/2017 - Coumadin on hold for now - Pt has been given 6 units of FFP Diabetes mellitus - Hold home meds for now - NovoLog SSI - Accu checks HTN - Monitor Hypothyroidism - Home meds continued (2) GI bleed ICD Codes: K92.2 - Gastrointestinal hemorrhage, unspecified Status: Acute (3) CVA (cerebral vascular accident) ICD Codes: I63.9 - Cerebral infarction, unspecified Status: Acute (4) Diabetes mellitus type 2, insulin dependent ICD Codes: E11.9 - Diabetes mellitus type 2, insulin dependent; Z79.4 - intensive care unit registered nurse (current) use of insulin Status: Chronic (5) Hypertension, benign ICD Codes: I10 - Hypertension, benign Status: Acute (6) Hypothyroidism ICD Codes: E03.9 - Hypothyroidism Status: Chronic Assessment and Plan Patient examined. Assessment and plan formulated with Alisa Woodruff PA-C. I agree with the above. gib. blood loss anemia. coagulopathy with supratherapeutic inr. blood transfusion ongoing. ED gave 6units ffp. Problem Qualifiers (1) Anemia: Qualified Codes: D64.9 - Anemia, unspecified (2) GI bleed: Qualified Codes: K92.2 - Gastrointestinal hemorrhage, unspecified Alisa Woodruff Aug 10, 2017 09:28 sAim Moreno MD Aug 10, 2017 12:39
[2017-08-10 09:35] LABS: INTERNATIONAL NORMALIZED RATIO 1.4 RATIO
[2017-08-10 09:38] LABS: AUTOMATED NEUTROPHIL # 5.6 TH/MM3 (1.8-7.7); BASOPHIL % 0.5 % (0.0-2.0); EOSINOPHIL # 0.1 TH/MM3 (0-0.4); EOSINOPHIL % 0.9 % (0.0-4.0); LYMPH % 13.2 % (9.0-44.0); LYMPHOCYTE # 0.9 TH/MM3 (1.0-4.8); MEAN CELL VOLUME 91.1 FL (80.0-100.0); MEAN CORPUSCULAR HEMOGLOBIN 32.2 PG (27.0-34.0); MEAN CORPUSCULAR HGB CONC 35.4 % (32.0-36.0); MEAN PLATELET VOLUME 9.8 FL (7.0-11.0); MONOCYTE # 0.4 TH/MM3 (0-0.9); NEUT % 79.4 % (16.0-70.0); PLATELET COUNT 111 TH/MM3 (150-450); RED BLOOD COUNT 2.04 MIL/MM3 (4.00-5.30); WHITE BLOOD COUNT 7.1 TH/MM3 (4.0-11.0)
[2017-08-10 09:45] LABS: BICARBONATE 28.4 MEQ/L (21.0-32.0); CALCIUM 9.5 MG/DL (8.5-10.1); CREATININE 1.43 MG/DL (0.50-1.00)
[2017-08-10 09:53] LABS: HEMATOCRIT 18.6 % (35.0-46.0); HEMOGLOBIN 6.6 GM/DL (11.6-15.3)
[2017-08-10 10:36] LABS: BANDS 2 % (0-6); BASOPHILS 1 % (0-2); LYMPHOCYTES 17 % (9-44); METAMYELOCYTES 2 % (0-1); MONOCYTES 4 % (0-8); MYELOCYTES 2 % (0-0); NEUTROPHIL # MANUAL DIFF 5.5 TH/MM3 (1.8-7.7); POLYS (SEG NEUTROPHILS) 71 % (16-70)
[2017-08-10 10:40] LABS: POLYCHROMASIA 2.3 % (0.0-1.9)
[2017-08-10] MEDS: FLUTICASONE PROPIONATE 50 MCG/ACT 16 GM NASAL SPRAY EACH NARE SCH (11:35)
--- NOTE | 2017-08-10 11:38 | PD.CONS ---
HPI History of Present Illness This is a 67 year old lady with hx embolic CVA 06/2017, on coumadin who was sent by her PCP for anemia. her hgb was 4.7 on admission. She admits black tarry stool for the last 4 days, along with fatigue and weakness. She had a colonoscopy [address] Gonzalez with finding polyps, hemorrhoids. Never had EGD. Denies hx GIB, n/v, abd pain, weight loss, frequent NSAID use. (Agueda Claudio) PFSH Past Medical History CVA lichen planus CKD3 DM2 sickle cell trait Past Surgical History rotator cuff repair tubal ligation (Agueda Claudio) Coded Allergies: latanoprost (Unverified Allergy, Severe, Swelling, 08/09/17) house dust (Unverified Allergy, Mild, CONGESTION, SNEEZING, 08/09/17) pollen extracts (Unverified Allergy, Mild, CONGESTION, SNEEZING, 08/09/17) Family History sister with vaginal ca Social History rare etoh no tobacco or illicit drug use (Agueda Claudio) Review of Systems Constitutional: COMPLAINS OF: Fatigue Endocrine: DENIES: Polydipsia Eyes: DENIES: Blurred vision Ears, nose, mouth, throat: DENIES: Hearing loss Respiratory: DENIES: Cough Cardiovascular: DENIES: Chest pain Gastrointestinal: COMPLAINS OF: Black stools, DENIES: Abdominal pain, Bloody stools, Nausea, Vomiting, Hematemesis Genitourinary: DENIES: Hematuria Musculoskeletal: DENIES: Muscle aches Integumentary: DENIES: Abnormal pigmentation Hematologic/lymphatic: DENIES: Bruising Immunologic/allergic: DENIES: Eczema Neurologic: DENIES: Abnormal gait Psychiatric: DENIES: Confusion (Agueda Claudio) GI Exam Vitals I&O Vital Signs Date Time Temp Pulse Resp B/P (MAP) Pulse Ox O2 Delivery O2 Flow Rate FiO2 08/10/17 11:19 96.6 97 16 128/60 98 08/10/17 08:50 96.8 96 17 135/61 96 08/10/17 08:32 98.1 101 17 129/60 95 08/10/17 08:00 98.1 101 17 129/60 (83) 95 2/22/18 04:40 98.6 102 14 124/60 95 08/10/17 04:17 98.2 103 14 122/57 94 08/10/17 04:00 98.2 103 14 122/57 (78) 94 08/10/17 01:33 99.1 94 14 124/60 97 08/10/17 01:08 98.5 88 18 101/57 98 08/10/17 00:00 98.5 84 18 117/59 (78) 97 08/09/17 23:11 98.6 98 14 128/62 95 08/09/17 22:45 98.4 96 14 130/58 96 08/09/17 21:07 96.2 104 14 125/59 98 08/09/17 20:38 98.0 79 18 122/58 99 08/09/17 20:00 98.0 79 18 122/58 (79) 99 08/09/17 18:48 08/09/17 18:23 98.6 97 17 155/69 98 08/09/17 17:25 98.9 95 15 142/63 100 08/09/17 17:06 98.3 96 15 134/65 97 08/09/17 15:15 99.0 100 12 118/58 98 08/09/17 14:59 98.0 100 14 119/55 98 08/09/17 13:35 103 14 143/63 (89) 88 Room Air 08/09/17 12:21 98.1 115 18 112/70 (84) 95 I/O 08/09/17 08/09/17 08/09/17 08/10/17 08/10/17 08/10/17 07:00 15:00 23:00 07:00 15:00 23:00 Intake Total 899 ml 684 ml 684 ml Balance 899 ml 684 ml 684 ml Packed Cells 400 ml 400 ml FFP 409 ml 644 ml 274 ml Blood Product IV Normal Saline Flush 90 ml 40 ml 10 ml Laboratory Test 08/09/17 12:35 08/09/17 15:19 08/09/17 21:39 08/10/17 08:55 White Blood Count 11.1 TH/MM3 7.1 TH/MM3 Red Blood Count 1.49 MIL/MM3 2.04 MIL/MM3 Hemoglobin 4.7 GM/DL 5.7 GM/DL 6.6 GM/DL Hematocrit 14.5 % 16.7 % 18.6 % Mean Corpuscular Volume 97.3 FL 91.1 FL Mean Corpuscular Hemoglobin 31.7 PG 32.2 PG Mean Corpuscular Hemoglobin Concent 32.6 % 35.4 % Red Cell Distribution Width 15.4 % 14.0 % Platelet Count 179 TH/MM3 111 TH/MM3 Mean Platelet Volume 10.3 FL 9.8 FL Neutrophils (%) (Auto) 85.7 % 79.4 % Lymphocytes (%) (Auto) 10.0 % 13.2 % Monocytes (%) (Auto) 3.5 % 6.0 % Eosinophils (%) (Auto) 0.2 % 0.9 % Basophils (%) (Auto) 0.6 % 0.5 % Neutrophils # (Auto) 9.5 TH/MM3 5.6 TH/MM3 Lymphocytes # (Auto) 1.1 TH/MM3 0.9 TH/MM3 Monocytes # (Auto) 0.4 TH/MM3 0.4 TH/MM3 Eosinophils # (Auto) 0.0 TH/MM3 0.1 TH/MM3 Basophils # (Auto) 0.1 TH/MM3 0.0 TH/MM3 CBC Comment DIFF FINAL AUTO DIFF Differential Comment FINAL DIFF MANUAL Blood Urea Nitrogen 53 MG/DL 41 MG/DL Creatinine 1.66 MG/DL 1.43 MG/DL Random Glucose 205 MG/DL 101 MG/DL Total Protein 6.6 GM/DL Albumin 3.4 GM/DL Calcium Level 9.0 MG/DL 9.5 MG/DL Alkaline Phosphatase 42 U/L Aspartate Amino Transf (AST/SGOT) 21 U/L Alanine Aminotransferase (ALT/SGPT) 23 U/L Total Bilirubin 0.5 MG/DL Sodium Level 138 MEQ/L 145 MEQ/L Potassium Level 5.0 MEQ/L 4.1 MEQ/L Chloride Level 107 MEQ/L 110 MEQ/L Carbon Dioxide Level 22.5 MEQ/L 28.4 MEQ/L Anion Gap 9 MEQ/L 7 MEQ/L Estimat Glomerular Filtration Rate 38 ML/MIN 45 ML/MIN Prothrombin Time 33.3 SEC 14.0 SEC Prothromb Time International Ratio 3.3 RATIO 1.4 RATIO Activated Partial Thromboplast Time 28.7 SEC Differential Total Cells Counted 100 Neutrophils % (Manual) 71 % Band Neutrophils % 2 % Lymphocytes % 17 % Monocytes % 4 % Eosinophils % 1 % Basophils % 1 % Neutrophils # (Manual) 5.5 TH/MM3 Metamyelocytes 2 % Myelocytes 2 % Platelet Estimate LOW Platelet Morphology Comment NORMAL Polychromasia 2.3 % Physical Examination HEENT: PERRL; normocephalic; atraumatic; no jaundice. CHEST: CTA CARDIAC: RRR ABDOMEN: Soft, nondistended, nontender; no hepatosplenomegaly; bowel sounds are present in all four quadrants. EXTREMITIES: No clubbing, cyanosis, or edema. SKIN: Normal; no rash; no jaundice. CRYSTAL LAPPER: Alert and oriented, dysarthria (Agueda Claudio) Assessment and Plan Plan ASSESSMENT - anemia, melanotic stool - hgb 4.7 on admission, guiac pos in ER. 4 day hx. no prior hx GIB. colonoscopy 2013 found polyps, hemorrhoids was on coumadin with supratherapeutic INR but coumadin held and INR improved today. PLAN - EGD tomorrow - obtain consent - clears today - NPO after midnight - monitor HH - hold coumadin - further recs to follow - notify GI of active bleeding pt seen by myself and Dr Vazquez and this note is on his behalf (Agueda Claudio) Physician Comments Seen and examined with Jh, Egd/colonoscopy planned for tomorrow. Golytle prep. Monitor labs. Discussed with primary team and the patient. Thank you (Carmela Vazquez MD) Agueda Claudio Aug 10, 2017 11:38 Carmela Vazquez MD Aug 10, 2017 16:34
[2017-08-10] MEDS: PANTOPRAZOLE INJ 80 MG in SODIUM CHLORIDE 0.9% INJ 100 ML IV SCH ×2 (13:03→22:00)
[2017-08-10] MEDS ORDERED: PEG (High)/E-LYTE SOLN 4000 ML BTL PO ONE (17:00)
[2017-08-10] MEDS: SODIUM CHLOR 0.9% 1000 ML INJ 1,000 ML IV SCH (17:05)
[2017-08-10] MEDS: LATANOPROST 0.005% OPHT SOLN 2.5 ML BTL EACH EYE SCH (21:17)
[2017-08-11] VITALS (8 sets, daily range): BP systolic 125–153; BP diastolic 60–68; PULSE 73–94; RESP 17–18; TEMP 95.5–97; O2SAT 93–100
[2017-08-11] MEDS: DEXTROSE 50% IN WATER 50 ML VIAL(D50) IV PUSH PRN ×2 (00:38→08:12)
[2017-08-11] MEDS ORDERED: GLUCAGON 1 MG/ML VIAL OTHER PRN (00:45)
[2017-08-11] MEDS: INSULIN ASPART SUPPLEMENTAL SCALE SQ SCH ×6 (04:00→20:00)
[2017-08-11] MEDS: SODIUM CHLOR 0.9% 1000 ML INJ 1,000 ML IV SCH (04:18)
[2017-08-11 04:41] LABS: AUTOMATED NEUTROPHIL # 4.3 TH/MM3 (1.8-7.7); BASOPHIL % 0.5 % (0.0-2.0); EOSINOPHIL # 0.2 TH/MM3 (0-0.4); HEMATOCRIT 27.4 % (35.0-46.0); HEMOGLOBIN 9.5 GM/DL (11.6-15.3); LYMPHOCYTE # 0.9 TH/MM3 (1.0-4.8); MEAN CELL VOLUME 89.6 FL (80.0-100.0); MEAN CORPUSCULAR HEMOGLOBIN 31.2 PG (27.0-34.0); MEAN CORPUSCULAR HGB CONC 34.8 % (32.0-36.0); MEAN PLATELET VOLUME 9.8 FL (7.0-11.0); MONO % 6.5 % (0.0-8.0); MONOCYTE # 0.4 TH/MM3 (0-0.9); PLATELET COUNT 111 TH/MM3 (150-450); RED BLOOD COUNT 3.06 MIL/MM3 (4.00-5.30); RED CELL DISTRIBUTION WIDTH 14.6 % (11.6-17.2); WHITE BLOOD COUNT 5.8 TH/MM3 (4.0-11.0)
[2017-08-11] MEDS: LEVOTHYROXINE SODIUM 112 MCG TAB PO SCH ×2 (05:29→06:00)
[2017-08-11] MEDS: PANTOPRAZOLE INJ 80 MG in SODIUM CHLORIDE 0.9% INJ 100 ML IV SCH ×2 (08:22→18:00)
[2017-08-11] MEDS: FLUTICASONE PROPIONATE 50 MCG/ACT 16 GM NASAL SPRAY EACH NARE SCH (09:00)
--- NOTE | 2017-08-11 09:00 | HHI.PR ---
Subjective Remarks Pt is planned for EGD/colonoscopy today She reports that she was up most of the night having BMs Denies any noted melena or BRBPR Pt feeling stronger since the other 2 units of PRBCs Objective Vitals Vital Signs Date Time Temp Pulse Resp B/P (MAP) Pulse Ox O2 Delivery O2 Flow Rate FiO2 08/11/17 04:34 97.0 84 18 129/60 (83) 94 08/11/17 04:05 94 08/11/17 00:00 96.9 73 18 128/63 (84) 96 08/11/17 00:00 80 08/10/17 20:00 96.3 80 17 142/80 (100) 94 08/10/17 16:00 97.2 87 16 136/63 (87) 98 08/10/17 15:04 97.2 87 16 136/63 98 08/10/17 14:45 97.2 86 16 126/60 94 08/10/17 14:15 96.4 93 17 136/61 95 08/10/17 12:00 96.6 97 16 128/60 (82) 98 08/10/17 11:45 96.4 93 17 136/61 (86) 95 08/10/17 11:19 96.6 97 16 128/60 98 Result Diagram: 08/11/17 0323 08/10/17 0855 Other Results Laboratory Tests Test 08/09/17 12:35 08/09/17 15:19 08/09/17 21:39 08/10/17 08:55 White Blood Count 11.1 TH/MM3 7.1 TH/MM3 Red Blood Count 1.49 MIL/MM3 2.04 MIL/MM3 Hemoglobin 4.7 GM/DL 5.7 GM/DL 6.6 GM/DL Hematocrit 14.5 % 16.7 % 18.6 % Mean Corpuscular Volume 97.3 FL 91.1 FL Mean Corpuscular Hemoglobin 31.7 PG 32.2 PG Mean Corpuscular Hemoglobin Concent 32.6 % 35.4 % Red Cell Distribution Width 15.4 % 14.0 % Platelet Count 179 TH/MM3 111 TH/MM3 Mean Platelet Volume 10.3 FL 9.8 FL Neutrophils (%) (Auto) 85.7 % 79.4 % Lymphocytes (%) (Auto) 10.0 % 13.2 % Monocytes (%) (Auto) 3.5 % 6.0 % Eosinophils (%) (Auto) 0.2 % 0.9 % Basophils (%) (Auto) 0.6 % 0.5 % Neutrophils # (Auto) 9.5 TH/MM3 5.6 TH/MM3 Lymphocytes # (Auto) 1.1 TH/MM3 0.9 TH/MM3 Monocytes # (Auto) 0.4 TH/MM3 0.4 TH/MM3 Eosinophils # (Auto) 0.0 TH/MM3 0.1 TH/MM3 Basophils # (Auto) 0.1 TH/MM3 0.0 TH/MM3 CBC Comment DIFF FINAL AUTO DIFF Differential Comment FINAL DIFF MANUAL Blood Urea Nitrogen 53 MG/DL 41 MG/DL Creatinine 1.66 MG/DL 1.43 MG/DL Random Glucose 205 MG/DL 101 MG/DL Total Protein 6.6 GM/DL Albumin 3.4 GM/DL Calcium Level 9.0 MG/DL 9.5 MG/DL Alkaline Phosphatase 42 U/L Aspartate Amino Transf (AST/SGOT) 21 U/L Alanine Aminotransferase (ALT/SGPT) 23 U/L Total Bilirubin 0.5 MG/DL Sodium Level 138 MEQ/L 145 MEQ/L Potassium Level 5.0 MEQ/L 4.1 MEQ/L Chloride Level 107 MEQ/L 110 MEQ/L Carbon Dioxide Level 22.5 MEQ/L 28.4 MEQ/L Anion Gap 9 MEQ/L 7 MEQ/L Estimat Glomerular Filtration Rate 38 ML/MIN 45 ML/MIN Prothrombin Time 33.3 SEC 14.0 SEC Prothromb Time International Ratio 3.3 RATIO 1.4 RATIO Activated Partial Thromboplast Time 28.7 SEC Differential Total Cells Counted 100 Neutrophils % (Manual) 71 % Band Neutrophils % 2 % Lymphocytes % 17 % Monocytes % 4 % Eosinophils % 1 % Basophils % 1 % Neutrophils # (Manual) 5.5 TH/MM3 Metamyelocytes 2 % Myelocytes 2 % Platelet Estimate LOW Platelet Morphology Comment NORMAL Polychromasia 2.3 % Test 08/11/17 03:23 White Blood Count 5.8 TH/MM3 Red Blood Count 3.06 MIL/MM3 Hemoglobin 9.5 GM/DL Hematocrit 27.4 % Mean Corpuscular Volume 89.6 FL Mean Corpuscular Hemoglobin 31.2 PG Mean Corpuscular Hemoglobin Concent 34.8 % Red Cell Distribution Width 14.6 % Platelet Count 111 TH/MM3 Mean Platelet Volume 9.8 FL Neutrophils (%) (Auto) 74.0 % Lymphocytes (%) (Auto) 16.0 % Monocytes (%) (Auto) 6.5 % Eosinophils (%) (Auto) 3.0 % Basophils (%) (Auto) 0.5 % Neutrophils # (Auto) 4.3 TH/MM3 Lymphocytes # (Auto) 0.9 TH/MM3 Monocytes # (Auto) 0.4 TH/MM3 Eosinophils # (Auto) 0.2 TH/MM3 Basophils # (Auto) 0.0 TH/MM3 CBC Comment DIFF FINAL Differential Comment Objective Remarks General: NAD, AAOx3 Chest: CTA Cardiac: Regular Abd: +BS, soft ND/NT Ext: Right sided weakness, chronic A/P Problem List: (1) Anemia ICD Codes: D64.9 - Anemia, unspecified Status: Acute Plan: Anemia GIB, hemoccult positive stool Recent CVA on anticoagulation with Coumadin - Pt is a 67 y/o AAF with chronic kidney disease stage 3, diabetes mellitus type 2, hypothyroidism, hyperlipidemia, sickle cell trait, and 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 Pt had previously been on Eliquis after her CVA. One month ago she was admitted for changes in her speech and was found to have had another acute CVA. Pt was seen by Neurology and felt to have failed Eliquis and was started on Coumadin. She had previously been on Coumadin 10mg and 7.5mg on at the time of her discharge from her recent hospitalization. - Pt had outpt labs on 08/02 which noted supra-therapeutic INR of 5.2 and she was noted to be anemic with Hgb 8.8. Pt was to hold her Coumadin for 2 days and then continue just on 7.5mg po daily. She reports that over the last few days she has had increased weakness and had a difficult time doing light housework around the house yesterday. She saw her PCP today who sent her for repeat labs today and then to the ED for further evaluation. - Her labs at admission noted Hgb 4.7/Hct 14.5. In the ED the pt was noted to be guaiac positive with noted melanotic stool. - INR at admission was 3.3 - Previous colonoscopy 09/13/[address] Gonzalez noted sessile polyp in the sigmoid colon, diminutive polyp in the rectum, small internal hemorrhoids. - Pt was ordered transfusion with 2 units PRBCs and 6 units of FFP from the ED - GI consult is following. - Pt was given 2 more units of PRBCs on 08/10. Hgb improved to 9.5 - Protonix IV - Pt is planned for EGD/colonoscopy today - INR 1.4 on 08/10 - Supportive care - Further recommendations as the case develops Recent CVA - Pt had been on Eliquis previously but was found to have had an acute CVA in 06/2017 - Pt was changed to Coumadin during that admission in 06/2017 - Coumadin on hold for now - Pt was given 6 units of FFP by ED Diabetes mellitus - Hold home meds for now - Pts BS were low last night and this morning - Pt given dextrose - NovoLog SSI - Accu checks HTN - Monitor Hypothyroidism - Home meds continued (2) GI bleed ICD Codes: K92.2 - Gastrointestinal hemorrhage, unspecified Status: Acute (3) CVA (cerebral vascular accident) ICD Codes: I63.9 - Cerebral infarction, unspecified Status: Acute (4) Diabetes mellitus type 2, insulin dependent ICD Codes: E11.9 - Diabetes mellitus type 2, insulin dependent; Z79.4 - shelter (current) use of insulin Status: Chronic (5) Hypertension, benign ICD Codes: I10 - Hypertension, benign Status: Acute (6) Hypothyroidism ICD Codes: E03.9 - Hypothyroidism Status: Chronic Assessment and Plan Patient examined. Assessment and plan formulated with Alisa Woodruff PA-C. I agree with the above. gib. blood loss anemia. coagulopathy with supratherapeutic inr. blood transfusion ongoing. ED gave 6units ffp. going for endoscopy today then resume anticoagulation when ok with GI> Problem Qualifiers (1) Anemia: Qualified Codes: D64.9 - Anemia, unspecified (2) GI bleed: Qualified Codes: K92.2 - Gastrointestinal hemorrhage, unspecified Alisa Woodruff Aug 11, 2017 09:00 Asim Moreno MD Aug 11, 2017 12:18
[2017-08-11] MEDS: DEXT 5%-NACL 0.9% 1000 ML INJ 1,000 ML IV SCH ×2 (10:00→20:40)
[2017-08-11] MEDS ORDERED: LIDOCAINE HCL 1% PF 5 ML SYRINGE OTHER ONE (12:00)
[2017-08-11] MEDS ORDERED: PROPOFOL 200 MG/20 ML AMP IV ONE (12:00)
--- NOTE | 2017-08-11 13:17 | GIPROC ---
[facility] [address] [facility]. [facility] [place], [address] EGD PROCEDURE REPORT EXAM DATE: 08/11/2017 PATIENT NAME: Shelia Rangel MR #: [id number] BIRTHDATE: 1950 ATTENDING: Carmela Vazquez MD ORDER #: [id number] BICYCLE TECHNICIAN: Shanna Alex and Marcos Andrade STATUS: inpatient INDICATIONS: The patient is a 67 yr old female here for an EGD due to iron deficiency anemia PROCEDURE PERFORMED: EGD w/ biopsy MEDICATIONS: Per Anesthesia and None. TOPICAL ANESTHETIC: CONSENT: The patient understands the risks and benefits of the procedure and understands that these risks include, but are not limited to: sedation, allergic reaction, infection, perforation and/or bleeding. Alternative means of evaluation and treatment include, among others: physical exam, x-rays, and/or surgical intervention. The patient elects to proceed with this endoscopic procedure. medical equipment was checked for proper function. Hand hygiene and appropriate measures for infection prevention was taken. After the risks, benefits and alternatives of the procedure were thoroughly explained, Informed consent was verified, confirmed and timeout was successfully executed by the treatment team. The patient was anesthetized with topical anesthesia and the EC-[id number] (Pedi C) endoscope was introduced through the mouth and advanced to the second portion of the duodenum. Retroflexed views revealed no abnormalities The gastroscope was then slowly withdrawn and removed. ESOPHAGUS: The mucosa of the esophagus appeared normal. STOMACH: There was erythematous moderate gastritis in the gastric antrum. A biopsy was performed. DUODENUM: Moderate duodenal inflammation was found in the bulb and second portion of the duodenum. ADVERSE EVENTS: There were no complications. IMPRESSIONS: 1. The esophagus appeared normal 2. There was erythematous gastritis in the gastric antrum; biopsy was performed 3. Duodenal inflammation was found in the bulb and second portion of the duodenum 4. Retroflexed views revealed no abnormalities RECOMMENDATIONS: 1. Await biopsy results. Biopsy results will not be ready for 7-10 days. If you don't hear from us in two weeks, call our office for biopsy results. 2. Anti-reflux regimen 3. Continue PPI PATIENT CONDITION: stable DISPOSITION: Inpatient REPEAT EXAM: Return 3 years EGD pending biopsy results Carmela Vazquez MD eSigned: Carmela Vazquez MD 08/11/2017 1:17 PM cc: PATIENT NAME: Shelia Rangel MR#: [id number]
--- NOTE | 2017-08-11 13:23 | GIPROC ---
[facility] [address] [facility]. [facility], [address] COLONOSCOPY PROCEDURE REPORT EXAM DATE: 08/11/2017 PATIENT NAME: Shelia aRngel MR #: [id number] BIRTHDATE: 1950 ENDOSCOPIST: Carmela Vazquez MD ORDER #: [id number] BUTT SAWYER: Jackelyn Andrade Pat STATUS: inpatient INDICATIONS: The patient is a 67 yr old female here for a colonoscopy due to iron deficiency anemia PROCEDURE PERFORMED: Colonoscopy with biopsy MEDICATIONS: Per Anesthesia and None. PREP QUALITY: The [place] Bowel Prep Score was Right colon 2, Mid colon 3, and Left colon 3. Total = 8. PREP TYPE:GoLytely ESTIMATED BLOOD LOSS: None CONSENT: The patient understands the risks and benefits of the procedure and understands that these risks include, but are not limited to: sedation, allergic reaction, infection, perforation and/or bleeding. Alternative means of evaluation and treatment include, among others: physical exam, x-rays, and/or surgical intervention. The patient elects to proceed with this endoscopic procedure. medical equipment was checked for proper function. Hand hygiene and appropriate measures for infection prevention was taken. After the risks, benefits and alternatives of the procedure were thoroughly explained, Informed consent was verified, confirmed and timeout was successfully executed by the treatment team. A digital exam revealed external hemorrhoids The Pentax EC-[id number] endoscope was introduced through the anus and advanced to the cecum, which was identified by both the appendix and ileocecal valve. The instrument was then slowly withdrawn as the colon was fully examined. COLON FINDINGS: A polypoid shaped sessile polyp ranging between 3-5mm in size was found in the sigmoid colon. A polypectomy was performed with cold forceps. The resection was complete and the polyp tissue was completely retrieved. Retroflexed views revealed internal hemorrhoids and Retroflexed views revealed medium internal hemorrhoids The scope was then completely withdrawn from the patient and the procedure terminated. PROCEDURE WITHDRAWAL TIME:6minutes ADVERSE EVENTS: There were no complications. IMPRESSIONS: 1. A sessile polyp ranging between 3-5mm in size was found in the sigmoid colon; polypectomy was performed with cold forceps 2. Retroflexed views revealed internal hemorrhoids 3. Retroflexed views revealed medium internal hemorrhoids 4. Revealed external hemorrhoids RECOMMENDATIONS: 1. Await biopsy results. Biopsy results will not be ready for 7-10 days. If you don't hear from us in two weeks, call our office for results. 2. Benefiber 2 tsp daily 3. Continue surveillance 4. Yearly hemoccult RECALL: Return 5 years Colonoscopy, pending biopsy results Carmela Vazquez MD eSigned: Carmela Vazquez MD 08/11/2017 1:23 PM cc:
[2017-08-11] MEDS: LATANOPROST 0.005% OPHT SOLN 2.5 ML BTL EACH EYE SCH (20:40)
[2017-08-12] VITALS (9 sets, daily range): BP systolic 106–169; BP diastolic 54–70; PULSE 67–92; RESP 15–18; TEMP 97–98.1; O2SAT 91–100
[2017-08-12] MEDS: INSULIN ASPART SUPPLEMENTAL SCALE SQ SCH ×7 (00:15→23:22)
[2017-08-12] MEDS: PANTOPRAZOLE INJ 80 MG in SODIUM CHLORIDE 0.9% INJ 100 ML IV SCH (04:11)
[2017-08-12] MEDS: LEVOTHYROXINE SODIUM 112 MCG TAB PO SCH (06:06)
[2017-08-12] MEDS: FLUTICASONE PROPIONATE 50 MCG/ACT 16 GM NASAL SPRAY EACH NARE SCH (07:42)
[2017-08-12 08:54] LABS: BASOPHIL % 0.6 % (0.0-2.0); EOSINOPHIL # 0.2 TH/MM3 (0-0.4); EOSINOPHIL % 3.7 % (0.0-4.0); HEMATOCRIT 27.7 % (35.0-46.0); HEMOGLOBIN 9.8 GM/DL (11.6-15.3); LYMPH % 12.7 % (9.0-44.0); LYMPHOCYTE # 0.7 TH/MM3 (1.0-4.8); MEAN CORPUSCULAR HEMOGLOBIN 31.4 PG (27.0-34.0); MEAN CORPUSCULAR HGB CONC 35.3 % (32.0-36.0); MEAN PLATELET VOLUME 9.5 FL (7.0-11.0); MONO % 5.7 % (0.0-8.0); MONOCYTE # 0.3 TH/MM3 (0-0.9); NEUT % 77.3 % (16.0-70.0); PLATELET COUNT 112 TH/MM3 (150-450); RED BLOOD COUNT 3.12 MIL/MM3 (4.00-5.30); RED CELL DISTRIBUTION WIDTH 14.2 % (11.6-17.2); WHITE BLOOD COUNT 5.2 TH/MM3 (4.0-11.0)
[2017-08-12 09:14] LABS: CALCIUM 8.4 MG/DL (8.5-10.1); CREATININE 1.41 MG/DL (0.50-1.00)
--- NOTE | 2017-08-12 10:14 | HHI.PR ---
Subjective Remarks No new complaints Pt overall feeling better today She is ambulating in the room without difficulty Objective Vitals Vital Signs Date Time Temp Pulse Resp B/P (MAP) Pulse Ox O2 Delivery O2 Flow Rate FiO2 08/12/17 08:00 97.6 71 15 128/61 (83) 98 08/12/17 08:00 73 08/12/17 04:21 98.1 71 18 126/64 (84) 96 08/12/17 03:45 77 08/12/17 00:21 97.8 82 18 129/64 (85) 98 08/11/17 20:00 96.4 82 18 147/63 (91) 94 08/11/17 18:45 79 08/11/17 16:00 96.1 80 17 136/63 (87) 100 08/11/17 14:22 96.2 75 17 125/66 (85) 93 08/11/17 13:35 97.5 73 18 126/61 (82) 96 Room Air Result Diagram: 08/12/17 0827 08/12/17 0827 Other Results Laboratory Tests Test 08/11/17 03:23 08/12/17 08:27 White Blood Count 5.8 TH/MM3 5.2 TH/MM3 Red Blood Count 3.06 MIL/MM3 3.12 MIL/MM3 Hemoglobin 9.5 GM/DL 9.8 GM/DL Hematocrit 27.4 % 27.7 % Mean Corpuscular Volume 89.6 FL 89.0 FL Mean Corpuscular Hemoglobin 31.2 PG 31.4 PG Mean Corpuscular Hemoglobin Concent 34.8 % 35.3 % Red Cell Distribution Width 14.6 % 14.2 % Platelet Count 111 TH/MM3 112 TH/MM3 Mean Platelet Volume 9.8 FL 9.5 FL Neutrophils (%) (Auto) 74.0 % 77.3 % Lymphocytes (%) (Auto) 16.0 % 12.7 % Monocytes (%) (Auto) 6.5 % 5.7 % Eosinophils (%) (Auto) 3.0 % 3.7 % Basophils (%) (Auto) 0.5 % 0.6 % Neutrophils # (Auto) 4.3 TH/MM3 4.0 TH/MM3 Lymphocytes # (Auto) 0.9 TH/MM3 0.7 TH/MM3 Monocytes # (Auto) 0.4 TH/MM3 0.3 TH/MM3 Eosinophils # (Auto) 0.2 TH/MM3 0.2 TH/MM3 Basophils # (Auto) 0.0 TH/MM3 0.0 TH/MM3 CBC Comment DIFF FINAL DIFF FINAL Differential Comment Blood Urea Nitrogen 18 MG/DL Creatinine 1.41 MG/DL Random Glucose 179 MG/DL Calcium Level 8.4 MG/DL Magnesium Level 2.0 MG/DL Sodium Level 140 MEQ/L Potassium Level 3.7 MEQ/L Chloride Level 105 MEQ/L Carbon Dioxide Level 31.0 MEQ/L Anion Gap 4 MEQ/L Estimat Glomerular Filtration Rate 45 ML/MIN Objective Remarks General: NAD, AAOx3 Chest: CTA Cardiac: Regular Abd: +BS, soft ND/NT Ext: Right sided weakness, chronic A/P Problem List: (1) Anemia ICD Codes: D64.9 - Anemia, unspecified Status: Acute Plan: Anemia GIB, hemoccult positive stool Recent CVA on anticoagulation with Coumadin - Pt is a 67 y/o AAF with chronic kidney disease stage 3, diabetes mellitus type 2, hypothyroidism, hyperlipidemia, sickle cell trait, and 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 Pt had previously been on Eliquis after her CVA. One month ago she was admitted for changes in her speech and was found to have had another acute CVA. Pt was seen by Neurology and felt to have failed Eliquis and was started on Coumadin. She had previously been on Coumadin 10mg and 7.5mg on at the time of her discharge from her recent hospitalization. - Pt had outpt labs on 08/02 which noted supra-therapeutic INR of 5.2 and she was noted to be anemic with Hgb 8.8. Pt was to hold her Coumadin for 2 days and then continue just on 7.5mg po daily. She reports that over the last few days she has had increased weakness and had a difficult time doing light housework around the house yesterday. She saw her PCP today who sent her for repeat labs today and then to the ED for further evaluation. - Her labs at admission noted Hgb 4.7/Hct 14.5. In the ED the pt was noted to be guaiac positive with noted melanotic stool. - INR at admission was 3.3 - Previous colonoscopy 09/13/[address] Gonzalez noted sessile polyp in the sigmoid colon, diminutive polyp in the rectum, small internal hemorrhoids. - Pt was ordered transfusion with 2 units PRBCs and 6 units of FFP from the ED - GI consult is following. - Pt was given 2 more units of PRBCs on 08/10. Hgb improved to 9.5 on 08/11 - Pt underwent EGD/colonoscopy on 08/11 --> erythematous gastritis in the gastric antrum, duodenal inflammation was found in the bulb and second portion of the duodenum, a sessile polyp ranging between 3-5mm in size was found in the sigmoid colon, internal/external hemorrhoids - Repeat Hgb 9.8 on 08/12 - Protonix changed to po on 08/12 - Supportive care - Further recommendations as the case develops Recent CVA - Pt had been on Eliquis previously but was found to have had an acute CVA in 06/2017 - Pt was changed to Coumadin during that admission in 06/2017 - Pt was given 6 units of FFP by ED - INR 1.4 on 08/10 - Plan to resume Coumadin on Monday, 08/14, at 7.5mg po daily dose Diabetes mellitus - Hold home meds for now - NovoLog SSI - Accu checks HTN - Monitor Hypothyroidism - Home meds continued (2) GI bleed ICD Codes: K92.2 - Gastrointestinal hemorrhage, unspecified Status: Acute (3) CVA (cerebral vascular accident) ICD Codes: I63.9 - Cerebral infarction, unspecified Status: Acute (4) Diabetes mellitus type 2, insulin dependent ICD Codes: E11.9 - Diabetes mellitus type 2, insulin dependent; Z79.4 - custodial (current) use of insulin Status: Chronic (5) Hypertension, benign ICD Codes: I10 - Hypertension, benign Status: Acute (6) Hypothyroidism ICD Codes: E03.9 - Hypothyroidism Status: Chronic Assessment and Plan Patient examined. Assessment and plan formulated with Alisa Woodruff PA-C. I agree with the above. gib. blood loss anemia. coagulopathy with supratherapeutic inr. blood transfusion. ED gave 6units ffp. s/p egd/colonoscopy. no active bleeding resume anticoagulation Monday and then observe for a few days to assure no recurrent bleed. difficult situation as pt high risk for cva and will be at ongoing risk for bleeding. Problem Qualifiers (1) Anemia: Qualified Codes: D64.9 - Anemia, unspecified (2) GI bleed: Qualified Codes: K92.2 - Gastrointestinal hemorrhage, unspecified Alisa Woodruff Aug 12, 2017 10:14 Asim Moreno MD Aug 12, 2017 12:49
--- NOTE | 2017-08-12 15:07 | HHI.GIFU ---
Subjective Remarks up in chair eating Appetite good. No nausea, vomiting No Abdominal pain (Allison Ellington) Objective Vitals I&O Vital Signs Date Time Temp Pulse Resp B/P (MAP) Pulse Ox O2 Delivery O2 Flow Rate FiO2 08/12/17 12:00 97.2 74 15 138/65 (89) 100 08/12/17 12:00 67 08/12/17 08:00 97.6 71 15 128/61 (83) 98 08/12/17 08:00 73 08/12/17 04:21 98.1 71 18 126/64 (84) 96 08/12/17 03:45 77 08/12/17 00:21 97.8 82 18 129/64 (85) 98 08/11/17 20:00 96.4 82 18 147/63 (91) 94 08/11/17 18:45 79 08/11/17 16:00 96.1 80 17 136/63 (87) 100 I/O 08/11/17 08/11/17 08/11/17 08/12/17 08/12/17 08/12/17 07:00 15:00 23:00 07:00 15:00 23:00 Intake Total 780 ml 1060 ml 780 ml Balance 780 ml 1060 ml 780 ml Intake Oral 780 ml 960 ml 780 ml Other 100 ml # Voids 6 3 4 # Bowel Movements 6 3 0 Laboratory Laboratory Tests Test 08/12/17 08:27 White Blood Count 5.2 Red Blood Count 3.12 Hemoglobin 9.8 Hematocrit 27.7 Mean Corpuscular Volume 89.0 Mean Corpuscular Hemoglobin 31.4 Mean Corpuscular Hemoglobin Concent 35.3 Red Cell Distribution Width 14.2 Platelet Count 112 Mean Platelet Volume 9.5 Neutrophils (%) (Auto) 77.3 Lymphocytes (%) (Auto) 12.7 Monocytes (%) (Auto) 5.7 Eosinophils (%) (Auto) 3.7 Basophils (%) (Auto) 0.6 Neutrophils # (Auto) 4.0 Lymphocytes # (Auto) 0.7 Monocytes # (Auto) 0.3 Eosinophils # (Auto) 0.2 Basophils # (Auto) 0.0 CBC Comment DIFF FINAL Differential Comment Blood Urea Nitrogen 18 Creatinine 1.41 Random Glucose 179 Calcium Level 8.4 Magnesium Level 2.0 Sodium Level 140 Potassium Level 3.7 Chloride Level 105 Carbon Dioxide Level 31.0 Anion Gap 4 Estimat Glomerular Filtration Rate 45 Physical Exam HEENT: Pupils round and reactive to light; normocephalic; atraumatic; no jaundice. Oral cavity clean NECK: Neck is supple, no JVD CHEST: Chest is clear to auscultation and percussion. Bowel rhonchi CARDIAC: Regular rate and rhythm ABDOMEN: taut, nondistended, nontender; no hepatosplenomegaly; bowel sounds are present in all four quadrants. EXTREMITIES: No clubbing, cyanosis, or edema. SKIN: Normal; no rash; no jaundice. 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 (Allison Ellington) Assessment and Plan Plan ASSESSMENT - anemia, melanotic stool - hgb 4.7 on admission, guiac pos in ER. 4 day hx. no prior hx GIB. colonoscopy 2013 found polyps, hemorrhoids. Current hemoglobin 9.8 No Coumadin since hospital stay. INR showed 1.4 08/11/17 .EGD done shows gastritis moderate duodenal inflammation Colonoscopy shows sessile polyp ranging from 3-5 mm found in the sigmoid colon , I'll appear to be done patient also had internal and external hemorrhoids PLAN -Biopsies pending from colonoscopy/EGD -Continue Protonix - further recs to follow - notify GI of active bleeding, current hemoglobin stable no obvious bleeding noted - We'll monitor through the weekend for no obvious GI bleed stable hemoglobin, possible DC Monday - Coumadin dosing per attending pt seen by myself and Dr Lee, note is on his behalf (Allison Ellington) Plan patient was seen and examined, agree with above note, we will monitor H/H if stable, ok to DC dyana (Paramjit Lee MD) Allison Ellington Aug 12, 2017 15:07 Paramjit Lee MD Aug 12, 2017 19:00
[2017-08-12 16:01] LABS: INTERNATIONAL NORMALIZED RATIO 1.1 RATIO; PROTHROMBIN TIME - PATIENT 11.5 SEC (9.8-11.6)
[2017-08-12] MEDS: LATANOPROST 0.005% OPHT SOLN 2.5 ML BTL EACH EYE SCH (20:21)
[2017-08-12] MEDS: PANTOPRAZOLE SOD 40 MG DELAYED RELEASE TAB PO SCH (20:21)
[2017-08-13] VITALS (7 sets, daily range): BP systolic 130–149; BP diastolic 65–79; PULSE 69–83; RESP 15–18; TEMP 96.2–97.5; O2SAT 91–100
[2017-08-13] MEDS: INSULIN ASPART SUPPLEMENTAL SCALE SQ SCH ×5 (03:25→20:48)
[2017-08-13] MEDS: LEVOTHYROXINE SODIUM 112 MCG TAB PO SCH (05:32)
[2017-08-13 07:12] LABS: AUTOMATED NEUTROPHIL # 3.3 TH/MM3 (1.8-7.7); BASOPHIL % 0.5 % (0.0-2.0); EOSINOPHIL # 0.2 TH/MM3 (0-0.4); EOSINOPHIL % 3.6 % (0.0-4.0); HEMATOCRIT 27.4 % (35.0-46.0); HEMOGLOBIN 9.5 GM/DL (11.6-15.3); LYMPH % 17.3 % (9.0-44.0); LYMPHOCYTE # 0.8 TH/MM3 (1.0-4.8); MEAN CELL VOLUME 88.7 FL (80.0-100.0); MEAN CORPUSCULAR HEMOGLOBIN 30.7 PG (27.0-34.0); MEAN CORPUSCULAR HGB CONC 34.6 % (32.0-36.0); MEAN PLATELET VOLUME 9.5 FL (7.0-11.0); MONO % 5.7 % (0.0-8.0); MONOCYTE # 0.3 TH/MM3 (0-0.9); NEUT % 72.9 % (16.0-70.0); PLATELET COUNT 117 TH/MM3 (150-450); RED BLOOD COUNT 3.09 MIL/MM3 (4.00-5.30); RED CELL DISTRIBUTION WIDTH 13.8 % (11.6-17.2); WHITE BLOOD COUNT 4.5 TH/MM3 (4.0-11.0)
[2017-08-13 07:50] LABS: BICARBONATE 28.2 MEQ/L (21.0-32.0); CALCIUM 8.2 MG/DL (8.5-10.1); CREATININE 1.27 MG/DL (0.50-1.00); MAGNESIUM 2.1 MG/DL (1.5-2.5)
[2017-08-13] MEDS: PANTOPRAZOLE SOD 40 MG DELAYED RELEASE TAB PO SCH ×2 (07:58→20:29)
[2017-08-13] MEDS: FLUTICASONE PROPIONATE 50 MCG/ACT 16 GM NASAL SPRAY EACH NARE SCH (07:58)
--- NOTE | 2017-08-13 08:26 | HHI.PR ---
Subjective Remarks No new complaints No noted obvious GIB Objective Vitals Vital Signs Date Time Temp Pulse Resp B/P (MAP) Pulse Ox O2 Delivery O2 Flow Rate FiO2 08/13/17 08:00 96.2 71 15 134/66 (88) 95 08/13/17 04:00 97.5 70 18 145/65 (91) 91 08/13/17 00:00 69 08/13/17 00:00 96.9 83 18 140/67 (91) 94 08/12/17 20:19 71 08/12/17 20:00 97.3 72 18 169/70 (103) 98 08/12/17 20:00 08/12/17 16:00 97.0 71 16 133/60 (84) 95 08/12/17 12:00 97.2 74 15 138/65 (89) 100 08/12/17 12:00 67 Result Diagram: 08/13/17 0625 08/13/17 0635 Other Results Laboratory Tests Test 08/12/17 08:27 08/12/17 15:43 08/13/17 06:25 08/13/17 06:35 White Blood Count 5.2 TH/MM3 4.5 TH/MM3 Red Blood Count 3.12 MIL/MM3 3.09 MIL/MM3 Hemoglobin 9.8 GM/DL 9.5 GM/DL Hematocrit 27.7 % 27.4 % Mean Corpuscular Volume 89.0 FL 88.7 FL Mean Corpuscular Hemoglobin 31.4 PG 30.7 PG Mean Corpuscular Hemoglobin Concent 35.3 % 34.6 % Red Cell Distribution Width 14.2 % 13.8 % Platelet Count 112 TH/MM3 117 TH/MM3 Mean Platelet Volume 9.5 FL 9.5 FL Neutrophils (%) (Auto) 77.3 % 72.9 % Lymphocytes (%) (Auto) 12.7 % 17.3 % Monocytes (%) (Auto) 5.7 % 5.7 % Eosinophils (%) (Auto) 3.7 % 3.6 % Basophils (%) (Auto) 0.6 % 0.5 % Neutrophils # (Auto) 4.0 TH/MM3 3.3 TH/MM3 Lymphocytes # (Auto) 0.7 TH/MM3 0.8 TH/MM3 Monocytes # (Auto) 0.3 TH/MM3 0.3 TH/MM3 Eosinophils # (Auto) 0.2 TH/MM3 0.2 TH/MM3 Basophils # (Auto) 0.0 TH/MM3 0.0 TH/MM3 CBC Comment DIFF FINAL DIFF FINAL Differential Comment Blood Urea Nitrogen 18 MG/DL 17 MG/DL Creatinine 1.41 MG/DL 1.27 MG/DL Random Glucose 179 MG/DL 106 MG/DL Calcium Level 8.4 MG/DL 8.2 MG/DL Magnesium Level 2.0 MG/DL 2.1 MG/DL Sodium Level 140 MEQ/L 141 MEQ/L Potassium Level 3.7 MEQ/L 3.8 MEQ/L Chloride Level 105 MEQ/L 108 MEQ/L Carbon Dioxide Level 31.0 MEQ/L 28.2 MEQ/L Anion Gap 4 MEQ/L 5 MEQ/L Estimat Glomerular Filtration Rate 45 ML/MIN 51 ML/MIN Prothrombin Time 11.5 SEC Prothromb Time International Ratio 1.1 RATIO Objective Remarks General: NAD, AAOx3 Chest: CTA Cardiac: Regular Abd: +BS, soft ND/NT Ext: Right sided weakness, chronic A/P Problem List: (1) Anemia ICD Codes: D64.9 - Anemia, unspecified Status: Acute Plan: Anemia GIB, hemoccult positive stool Recent CVA on anticoagulation with Coumadin - Pt is a 67 y/o AAF with chronic kidney disease stage 3, diabetes mellitus type 2, hypothyroidism, hyperlipidemia, sickle cell trait, and 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 Pt had previously been on Eliquis after her CVA. One month ago she was admitted for changes in her speech and was found to have had another acute CVA. Pt was seen by Neurology and felt to have failed Eliquis and was started on Coumadin. She had previously been on Coumadin 10mg and 7.5mg on at the time of her discharge from her recent hospitalization. - Pt had outpt labs on 08/02 which noted supra-therapeutic INR of 5.2 and she was noted to be anemic with Hgb 8.8. Pt was to hold her Coumadin for 2 days and then continue just on 7.5mg po daily. She reports that over the last few days she has had increased weakness and had a difficult time doing light housework around the house yesterday. She saw her PCP today who sent her for repeat labs today and then to the ED for further evaluation. - Her labs at admission noted Hgb 4.7/Hct 14.5. In the ED the pt was noted to be guaiac positive with noted melanotic stool. - INR at admission was 3.3 - Previous colonoscopy 09/13/[address] Gonzalez noted sessile polyp in the sigmoid colon, diminutive polyp in the rectum, small internal hemorrhoids. - Pt was ordered transfusion with 2 units PRBCs and 6 units of FFP from the ED - GI consult is following. - Pt was given 2 more units of PRBCs on 08/10. - Pt underwent EGD/colonoscopy on 08/11 --> erythematous gastritis in the gastric antrum, duodenal inflammation was found in the bulb and second portion of the duodenum, a sessile polyp ranging between 3-5mm in size was found in the sigmoid colon, internal/external hemorrhoids - Hgb stable at 9.5 on 08/13 - Protonix changed to po on 08/12 - Supportive care - Further recommendations as the case develops Recent CVA - Pt had been on Eliquis previously but was found to have had an acute CVA in 06/2017 - Pt was changed to Coumadin during that admission in 06/2017 - Pt was given 6 units of FFP by ED - INR 1.4 on 08/10 - Plan to resume Coumadin on Monday, 08/14, at 7.5mg po daily dose and then observe for a few days to assure no recurrent bleed. - This is a difficult situation as pt high risk for CVA and will be at ongoing risk for bleeding. Diabetes mellitus - Hold home meds for now - NovoLog SSI - Accu checks HTN - Monitor Hypothyroidism - Home meds continued (2) GI bleed ICD Codes: K92.2 - Gastrointestinal hemorrhage, unspecified Status: Acute (3) CVA (cerebral vascular accident) ICD Codes: I63.9 - Cerebral infarction, unspecified Status: Acute (4) Diabetes mellitus type 2, insulin dependent ICD Codes: E11.9 - Diabetes mellitus type 2, insulin dependent; Z79.4 - termite exterminator (current) use of insulin Status: Chronic (5) Hypertension, benign ICD Codes: I10 - Hypertension, benign Status: Acute (6) Hypothyroidism ICD Codes: E03.9 - Hypothyroidism Status: Chronic Assessment and Plan Patient examined. Assessment and plan formulated with Alisa Kacy PA-C. I agree with the above. gib. blood loss anemia. coagulopathy with supratherapeutic inr. blood transfusion. ED gave 6units ffp. s/p egd/colonoscopy. no active bleeding resume anticoagulation Monday and then observe for a few days to assure no recurrent bleed. difficult situation as pt high risk for cva and will be at ongoing risk for bleeding. Problem Qualifiers (1) Anemia: Qualified Codes: D64.9 - Anemia, unspecified (2) GI bleed: Qualified Codes: K92.2 - Gastrointestinal hemorrhage, unspecified Alisa Woodruff Aug 13, 2017 08:26 Asim Moreno MD Aug 13, 2017 15:28
--- NOTE | 2017-08-13 14:47 | HHI.GIFU ---
Subjective Remarks Patient sitting up in room Denies any symptoms of nausea vomiting diarrhea constipation Oh obvious or noted rectal bleeding Afebrile (Allison Ellington) Objective Vitals I&O Vital Signs Date Time Temp Pulse Resp B/P (MAP) Pulse Ox O2 Delivery O2 Flow Rate FiO2 08/13/17 12:00 96.5 72 16 149/67 (94) 97 08/13/17 08:00 96.2 71 15 134/66 (88) 95 08/13/17 04:00 97.5 70 18 145/65 (91) 91 08/13/17 00:00 69 08/13/17 00:00 96.9 83 18 140/67 (91) 94 08/12/17 20:19 71 08/12/17 20:00 97.3 72 18 169/70 (103) 98 08/12/17 20:00 08/12/17 16:00 97.0 71 16 133/60 (84) 95 I/O 08/12/17 08/12/17 08/12/17 08/13/17 08/13/17 08/13/17 07:00 15:00 23:00 07:00 15:00 23:00 Intake Total 780 ml 740 ml Balance 780 ml 740 ml Intake Oral 780 ml 740 ml # Voids 4 3 # Bowel Movements 0 1 Laboratory Laboratory Tests Test 08/12/17 15:43 08/13/17 06:25 08/13/17 06:35 Prothrombin Time 11.5 Prothromb Time International Ratio 1.1 White Blood Count 4.5 Red Blood Count 3.09 Hemoglobin 9.5 Hematocrit 27.4 Mean Corpuscular Volume 88.7 Mean Corpuscular Hemoglobin 30.7 Mean Corpuscular Hemoglobin Concent 34.6 Red Cell Distribution Width 13.8 Platelet Count 117 Mean Platelet Volume 9.5 Neutrophils (%) (Auto) 72.9 Lymphocytes (%) (Auto) 17.3 Monocytes (%) (Auto) 5.7 Eosinophils (%) (Auto) 3.6 Basophils (%) (Auto) 0.5 Neutrophils # (Auto) 3.3 Lymphocytes # (Auto) 0.8 Monocytes # (Auto) 0.3 Eosinophils # (Auto) 0.2 Basophils # (Auto) 0.0 CBC Comment DIFF FINAL Differential Comment Blood Urea Nitrogen 17 Creatinine 1.27 Random Glucose 106 Calcium Level 8.2 Magnesium Level 2.1 Sodium Level 141 Potassium Level 3.8 Chloride Level 108 Carbon Dioxide Level 28.2 Anion Gap 5 Estimat Glomerular Filtration Rate 51 Physical Exam HEENT: Pupils round and reactive to light; normocephalic; atraumatic; no jaundice. NECK: Neck is supple, no JVD CHEST: Chest is clear to auscultation and percussion. Bowel rhonchi CARDIAC: Regular rate and rhythm ABDOMEN: taut, nondistended, nontender; no hepatosplenomegaly; bowel sounds are present in all four quadrants. EXTREMITIES: No clubbing, cyanosis, or edema. SKIN: Normal; no rash; no jaundice. 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 Each is clear (Allison Ellington) Assessment and Plan Plan Plan ASSESSMENT - anemia, melanotic stool -no further melena, GI bleed resolved 08/11/17 .EGD done shows gastritis moderate duodenal inflammation Colonoscopy shows sessile polyp ranging from 3-5 mm found in the sigmoid colon , I'll appear to be done patient also had internal and external hemorrhoids PLAN -Biopsies pending , can review when patient comes into office for what visit -Continue Protonix - notify GI of active bleeding, current hemoglobin stable no obvious bleeding noted - We'll monitor through the weekend for no obvious GI bleed stable hemoglobin, possible DC Monday - Coumadin dosing per attending -OK to DC from GI perspective can follow in the office as outpatient pt seen by myself and Dr Lee, note is on his behalf (Allison Ellington) Plan Patient was seen and examined, agree with above-noted, we will follow-up as an outpatient to follow up on the biopsy and see how she is doing (Paramjit Lee MD) Allison Ellington Aug 13, 2017 14:47 Paramjit Lee MD Aug 13, 2017 17:38
[2017-08-13] MEDS: LATANOPROST 0.005% OPHT SOLN 2.5 ML BTL EACH EYE SCH (20:28)
[2017-08-14] VITALS (8 sets, daily range): BP systolic 138–163; BP diastolic 63–72; PULSE 63–77; RESP 16–18; TEMP 96.6–98.5; O2SAT 93–98
[2017-08-14] MEDS: INSULIN ASPART SUPPLEMENTAL SCALE SQ SCH ×7 (00:36→23:38)
[2017-08-14] MEDS: LEVOTHYROXINE SODIUM 112 MCG TAB PO SCH (05:00)
[2017-08-14] MEDS: PANTOPRAZOLE SOD 40 MG DELAYED RELEASE TAB PO SCH ×2 (07:58→20:22)
[2017-08-14] MEDS: FLUTICASONE PROPIONATE 50 MCG/ACT 16 GM NASAL SPRAY EACH NARE SCH (08:00)
--- NOTE | 2017-08-14 10:13 | HHI.PR ---
Subjective Remarks No noted active bleeding No specific complaints Objective Vitals Vital Signs Date Time Temp Pulse Resp B/P (MAP) Pulse Ox O2 Delivery O2 Flow Rate FiO2 08/14/17 07:51 97.2 68 16 163/72 (102) 97 08/14/17 04:00 98.2 68 18 138/63 (88) 97 08/14/17 00:00 98.5 66 18 139/63 (88) 98 08/14/17 00:00 72 08/13/17 20:01 74 08/13/17 20:00 71 18 130/67 (88) 100 08/13/17 16:00 96.9 75 15 143/79 (100) 97 08/13/17 12:00 96.5 72 16 149/67 (94) 97 Result Diagram: 08/13/17 0625 08/13/17 0635 Other Results Laboratory Tests Test 08/12/17 15:43 08/13/17 06:25 08/13/17 06:35 Prothrombin Time 11.5 SEC Prothromb Time International Ratio 1.1 RATIO White Blood Count 4.5 TH/MM3 Red Blood Count 3.09 MIL/MM3 Hemoglobin 9.5 GM/DL Hematocrit 27.4 % Mean Corpuscular Volume 88.7 FL Mean Corpuscular Hemoglobin 30.7 PG Mean Corpuscular Hemoglobin Concent 34.6 % Red Cell Distribution Width 13.8 % Platelet Count 117 TH/MM3 Mean Platelet Volume 9.5 FL Neutrophils (%) (Auto) 72.9 % Lymphocytes (%) (Auto) 17.3 % Monocytes (%) (Auto) 5.7 % Eosinophils (%) (Auto) 3.6 % Basophils (%) (Auto) 0.5 % Neutrophils # (Auto) 3.3 TH/MM3 Lymphocytes # (Auto) 0.8 TH/MM3 Monocytes # (Auto) 0.3 TH/MM3 Eosinophils # (Auto) 0.2 TH/MM3 Basophils # (Auto) 0.0 TH/MM3 CBC Comment DIFF FINAL Differential Comment Blood Urea Nitrogen 17 MG/DL Creatinine 1.27 MG/DL Random Glucose 106 MG/DL Calcium Level 8.2 MG/DL Magnesium Level 2.1 MG/DL Sodium Level 141 MEQ/L Potassium Level 3.8 MEQ/L Chloride Level 108 MEQ/L Carbon Dioxide Level 28.2 MEQ/L Anion Gap 5 MEQ/L Estimat Glomerular Filtration Rate 51 ML/MIN Objective Remarks General: NAD, AAOx3 Chest: CTA Cardiac: Regular Abd: +BS, soft ND/NT Ext: No edema A/P Problem List: (1) Anemia ICD Codes: D64.9 - Anemia, unspecified Status: Acute Plan: Anemia GIB, hemoccult positive stool Recent CVA on anticoagulation with Coumadin - Pt is a 67 y/o AAF with chronic kidney disease stage 3, diabetes mellitus type 2, hypothyroidism, hyperlipidemia, sickle cell trait, and 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 Pt had previously been on Eliquis after her CVA. One month ago she was admitted for changes in her speech and was found to have had another acute CVA. Pt was seen by Neurology and felt to have failed Eliquis and was started on Coumadin. She had previously been on Coumadin 10mg and 7.5mg on at the time of her discharge from her recent hospitalization. - Pt had outpt labs on 08/02 which noted supra-therapeutic INR of 5.2 and she was noted to be anemic with Hgb 8.8. Pt was to hold her Coumadin for 2 days and then continue just on 7.5mg po daily. She reports that over the last few days she has had increased weakness and had a difficult time doing light housework around the house yesterday. She saw her PCP today who sent her for repeat labs today and then to the ED for further evaluation. - Her labs at admission noted Hgb 4.7/Hct 14.5. In the ED the pt was noted to be guaiac positive with noted melanotic stool. - INR at admission was 3.3 - Previous colonoscopy 09/13/[address] Gonzalez noted sessile polyp in the sigmoid colon, diminutive polyp in the rectum, small internal hemorrhoids. - Pt was ordered transfusion with 2 units PRBCs and 6 units of FFP from the ED - GI consult is following. - Pt was given 2 more units of PRBCs on 08/10. - Pt underwent EGD/colonoscopy on 08/11 --> erythematous gastritis in the gastric antrum, duodenal inflammation was found in the bulb and second portion of the duodenum, a sessile polyp ranging between 3-5mm in size was found in the sigmoid colon, internal/external hemorrhoids - Hgb stable at 9.5 on 08/13 - Protonix changed to po on 08/12 - Supportive care - Further recommendations as the case develops Recent CVA - Pt had been on Eliquis previously but was found to have had an acute CVA in 06/2017 - Pt was changed to Coumadin during that admission in 06/2017 - Pt was given 6 units of FFP by ED - INR 1.4 on 08/10 - Resume Coumadin today at 7.5mg po daily dose and then observe for a few days to assure no recurrent bleed. - This is a difficult situation as pt high risk for CVA and will be at ongoing risk for bleeding. Diabetes mellitus - Hold home meds for now - NovoLog SSI - Accu checks HTN - Monitor Hypothyroidism - Home meds continued (2) GI bleed ICD Codes: K92.2 - Gastrointestinal hemorrhage, unspecified Status: Acute (3) CVA (cerebral vascular accident) ICD Codes: I63.9 - Cerebral infarction, unspecified Status: Acute (4) Diabetes mellitus type 2, insulin dependent ICD Codes: E11.9 - Diabetes mellitus type 2, insulin dependent; Z79.4 - convict guard (current) use of insulin Status: Chronic (5) Hypertension, benign ICD Codes: I10 - Hypertension, benign Status: Acute (6) Hypothyroidism ICD Codes: E03.9 - Hypothyroidism Status: Chronic Assessment and Plan Patient examined. Assessment and plan formulated with Alisa Woodruff PA-C. I agree with the above. Problem Qualifiers (1) Anemia: Qualified Codes: D64.9 - Anemia, unspecified (2) GI bleed: Qualified Codes: K92.2 - Gastrointestinal hemorrhage, unspecified Alisa Woodruff Aug 14, 2017 10:13 Prince Kaba DO Aug 21, 2017 10:24
[2017-08-14] MEDS: WARFARIN SOD 7.5 MG TAB PO SCH (16:08)
[2017-08-14] MEDS: LATANOPROST 0.005% OPHT SOLN 2.5 ML BTL EACH EYE SCH (20:22)
[2017-08-15] VITALS (7 sets, daily range): BP systolic 136–155; BP diastolic 61–67; PULSE 66–78; RESP 17–18; TEMP 95.6–97.5; O2SAT 92–100
[2017-08-15] MEDS: INSULIN ASPART SUPPLEMENTAL SCALE SQ SCH ×5 (04:00→20:02)
[2017-08-15] MEDS: LEVOTHYROXINE SODIUM 112 MCG TAB PO SCH (04:37)
[2017-08-15 07:39] LABS: AUTOMATED NEUTROPHIL # 3.8 TH/MM3 (1.8-7.7); BASOPHIL % 0.7 % (0.0-2.0); EOSINOPHIL # 0.2 TH/MM3 (0-0.4); EOSINOPHIL % 3.7 % (0.0-4.0); HEMATOCRIT 29.7 % (35.0-46.0); HEMOGLOBIN 10.2 GM/DL (11.6-15.3); LYMPH % 15.9 % (9.0-44.0); LYMPHOCYTE # 0.8 TH/MM3 (1.0-4.8); MEAN CELL VOLUME 88.6 FL (80.0-100.0); MEAN CORPUSCULAR HEMOGLOBIN 30.4 PG (27.0-34.0); MEAN CORPUSCULAR HGB CONC 34.3 % (32.0-36.0); MEAN PLATELET VOLUME 10.4 FL (7.0-11.0); MONO % 5.6 % (0.0-8.0); MONOCYTE # 0.3 TH/MM3 (0-0.9); NEUT % 74.1 % (16.0-70.0); PLATELET COUNT 136 TH/MM3 (150-450); RED BLOOD COUNT 3.35 MIL/MM3 (4.00-5.30); RED CELL DISTRIBUTION WIDTH 14.1 % (11.6-17.2); WHITE BLOOD COUNT 5.1 TH/MM3 (4.0-11.0)
[2017-08-15 07:47] LABS: PROTHROMBIN TIME - PATIENT 10.1 SEC (9.8-11.6)
[2017-08-15] MEDS: FLUTICASONE PROPIONATE 50 MCG/ACT 16 GM NASAL SPRAY EACH NARE SCH (08:48)
[2017-08-15] MEDS: PANTOPRAZOLE SOD 40 MG DELAYED RELEASE TAB PO SCH ×2 (08:48→20:01)
--- NOTE | 2017-08-15 10:23 | HHI.PR ---
Subjective Remarks No new complaints Objective Vitals Vital Signs Date Time Temp Pulse Resp B/P (MAP) Pulse Ox O2 Delivery O2 Flow Rate FiO2 08/15/17 08:00 97.2 71 17 136/61 (86) 92 08/15/17 04:00 97.5 66 18 139/64 (89) 98 08/15/17 03:51 78 08/15/17 00:00 96.9 68 18 148/64 (92) 100 08/14/17 23:42 66 08/14/17 20:00 96.8 72 18 153/66 (95) 98 08/14/17 20:00 77 08/14/17 16:00 96.6 71 18 150/69 (96) 93 08/14/17 12:00 72 08/14/17 12:00 97.5 74 18 152/70 (97) 96 08/14/17 12:00 97.5 74 16 152/70 (97) 96 Result Diagram: 08/15/17 0541 08/13/17 0635 Other Results Laboratory Tests Test 08/15/17 05:41 White Blood Count 5.1 TH/MM3 Red Blood Count 3.35 MIL/MM3 Hemoglobin 10.2 GM/DL Hematocrit 29.7 % Mean Corpuscular Volume 88.6 FL Mean Corpuscular Hemoglobin 30.4 PG Mean Corpuscular Hemoglobin Concent 34.3 % Red Cell Distribution Width 14.1 % Platelet Count 136 TH/MM3 Mean Platelet Volume 10.4 FL Neutrophils (%) (Auto) 74.1 % Lymphocytes (%) (Auto) 15.9 % Monocytes (%) (Auto) 5.6 % Eosinophils (%) (Auto) 3.7 % Basophils (%) (Auto) 0.7 % Neutrophils # (Auto) 3.8 TH/MM3 Lymphocytes # (Auto) 0.8 TH/MM3 Monocytes # (Auto) 0.3 TH/MM3 Eosinophils # (Auto) 0.2 TH/MM3 Basophils # (Auto) 0.0 TH/MM3 CBC Comment DIFF FINAL Differential Comment Prothrombin Time 10.1 SEC Prothromb Time International Ratio 1.0 RATIO Objective Remarks General: NAD, AAOx3 Chest: CTA Cardiac: Regular Abd: +BS, soft ND/NT Ext: No edema A/P Problem List: (1) Anemia ICD Codes: D64.9 - Anemia, unspecified Status: Acute Plan: Anemia GIB, hemoccult positive stool Recent CVA on anticoagulation with Coumadin - Pt is a 67 y/o AAF with chronic kidney disease stage 3, diabetes mellitus type 2, hypothyroidism, hyperlipidemia, sickle cell trait, and 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 Pt had previously been on Eliquis after her CVA. One month ago she was admitted for changes in her speech and was found to have had another acute CVA. Pt was seen by Neurology and felt to have failed Eliquis and was started on Coumadin. She had previously been on Coumadin 10mg and 7.5mg on at the time of her discharge from her recent hospitalization. - Pt had outpt labs on 08/02 which noted supra-therapeutic INR of 5.2 and she was noted to be anemic with Hgb 8.8. Pt was to hold her Coumadin for 2 days and then continue just on 7.5mg po daily. She reports that over the last few days she has had increased weakness and had a difficult time doing light housework around the house yesterday. She saw her PCP today who sent her for repeat labs today and then to the ED for further evaluation. - Her labs at admission noted Hgb 4.7/Hct 14.5. In the ED the pt was noted to be guaiac positive with noted melanotic stool. - INR at admission was 3.3 - Previous colonoscopy 09/13/[address] Gonzalez noted sessile polyp in the sigmoid colon, diminutive polyp in the rectum, small internal hemorrhoids. - Pt was ordered transfusion with 2 units PRBCs and 6 units of FFP from the ED - GI consult is following. - Pt was given 2 more units of PRBCs on 08/10. - Pt underwent EGD/colonoscopy on 08/11 --> erythematous gastritis in the gastric antrum, duodenal inflammation was found in the bulb and second portion of the duodenum, a sessile polyp ranging between 3-5mm in size was found in the sigmoid colon, internal/external hemorrhoids - Hgb stable at 10.2 on 08/15 - Protonix changed to po on 08/12 - Supportive care - Further recommendations as the case develops Recent CVA - Pt had been on Eliquis previously but was found to have had an acute CVA in 06/2017 - Pt was changed to Coumadin during that admission in 06/2017 - Pt was given 6 units of FFP by ED - INR 1.0 on 08/15 - Coumadin 7.5mg po daily resumed on 08/14 and observe for a few days to assure no recurrent bleed. - This is a difficult situation as pt high risk for CVA and will be at ongoing risk for bleeding. Diabetes mellitus - Hold home meds for now - NovoLog SSI - Accu checks HTN - Monitor Hypothyroidism - Home meds continued (2) GI bleed ICD Codes: K92.2 - Gastrointestinal hemorrhage, unspecified Status: Acute (3) CVA (cerebral vascular accident) ICD Codes: I63.9 - Cerebral infarction, unspecified Status: Acute (4) Diabetes mellitus type 2, insulin dependent ICD Codes: E11.9 - Diabetes mellitus type 2, insulin dependent; Z79.4 - skilled nursing (current) use of insulin Status: Chronic (5) Hypertension, benign ICD Codes: I10 - Hypertension, benign Status: Acute (6) Hypothyroidism ICD Codes: E03.9 - Hypothyroidism Status: Chronic Assessment and Plan Patient examined. Assessment and plan formulated with Alisa Woodruff PA-C. I agree with the above. Problem Qualifiers (1) Anemia: Qualified Codes: D64.9 - Anemia, unspecified (2) GI bleed: Qualified Codes: K92.2 - Gastrointestinal hemorrhage, unspecified Alisa Woodruff Aug 15, 2017 10:23 Prince Kaba DO Aug 21, 2017 10:25
[2017-08-15] MEDS: WARFARIN SOD 7.5 MG TAB PO SCH (17:18)
[2017-08-15] MEDS: LATANOPROST 0.005% OPHT SOLN 2.5 ML BTL EACH EYE SCH (20:03)
[2017-08-16] VITALS: BP 130/61; PULSE 73; RESP 18; TEMP 97.1; O2SAT 93
[2017-08-16] MEDS: INSULIN ASPART SUPPLEMENTAL SCALE SQ SCH ×6 (00:39→21:42)
[2017-08-16] MEDS: LEVOTHYROXINE SODIUM 112 MCG TAB PO SCH (06:11)
[2017-08-16 08:00] VITALS: BP 159/66; PULSE 68; RESP 16; TEMP 96.8; O2SAT 99
[2017-08-16 08:16] LABS: AUTOMATED NEUTROPHIL # 3.8 TH/MM3 (1.8-7.7); BASOPHIL % 0.9 % (0.0-2.0); EOSINOPHIL # 0.2 TH/MM3 (0-0.4); EOSINOPHIL % 3.7 % (0.0-4.0); HEMATOCRIT 32.5 % (35.0-46.0); HEMOGLOBIN 11.5 GM/DL (11.6-15.3); LYMPHOCYTE # 1.1 TH/MM3 (1.0-4.8); MEAN CELL VOLUME 87.9 FL (80.0-100.0); MEAN CORPUSCULAR HEMOGLOBIN 31.2 PG (27.0-34.0); MEAN CORPUSCULAR HGB CONC 35.5 % (32.0-36.0); MEAN PLATELET VOLUME 10.1 FL (7.0-11.0); MONO % 3.8 % (0.0-8.0); MONOCYTE # 0.2 TH/MM3 (0-0.9); NEUT % 71.6 % (16.0-70.0); PLATELET COUNT 152 TH/MM3 (150-450); RED CELL DISTRIBUTION WIDTH 13.9 % (11.6-17.2); WHITE BLOOD COUNT 5.3 TH/MM3 (4.0-11.0)
[2017-08-16 08:23] LABS: PROTHROMBIN TIME - PATIENT 9.9 SEC (9.8-11.6)
[2017-08-16 08:48] LABS: BICARBONATE 24.4 MEQ/L (21.0-32.0); CALCIUM 8.7 MG/DL (8.5-10.1); CREATININE 1.35 MG/DL (0.50-1.00); MAGNESIUM 1.9 MG/DL (1.5-2.5)
[2017-08-16] MEDS: PANTOPRAZOLE SOD 40 MG DELAYED RELEASE TAB PO SCH ×2 (09:26→20:50)
[2017-08-16] MEDS: FLUTICASONE PROPIONATE 50 MCG/ACT 16 GM NASAL SPRAY EACH NARE SCH (09:26)
--- NOTE | 2017-08-16 11:36 | HHI.PR ---
Subjective Remarks No new complaints Wants to go home Objective Vitals Vital Signs Date Time Temp Pulse Resp B/P (MAP) Pulse Ox O2 Delivery O2 Flow Rate FiO2 08/16/17 08:00 96.8 68 16 159/66 (97) 99 08/16/17 00:00 97.1 73 18 130/61 (84) 93 08/15/17 20:00 96.4 75 18 143/65 (91) 94 08/15/17 16:00 95.6 71 17 155/67 (96) 100 08/15/17 12:00 96.9 76 18 144/67 (92) 94 Result Diagram: 08/16/17 0724 08/16/17 0724 Other Results Laboratory Tests Test 08/15/17 05:41 08/16/17 07:24 White Blood Count 5.1 TH/MM3 5.3 TH/MM3 Red Blood Count 3.35 MIL/MM3 3.70 MIL/MM3 Hemoglobin 10.2 GM/DL 11.5 GM/DL Hematocrit 29.7 % 32.5 % Mean Corpuscular Volume 88.6 FL 87.9 FL Mean Corpuscular Hemoglobin 30.4 PG 31.2 PG Mean Corpuscular Hemoglobin Concent 34.3 % 35.5 % Red Cell Distribution Width 14.1 % 13.9 % Platelet Count 136 TH/MM3 152 TH/MM3 Mean Platelet Volume 10.4 FL 10.1 FL Neutrophils (%) (Auto) 74.1 % 71.6 % Lymphocytes (%) (Auto) 15.9 % 20.0 % Monocytes (%) (Auto) 5.6 % 3.8 % Eosinophils (%) (Auto) 3.7 % 3.7 % Basophils (%) (Auto) 0.7 % 0.9 % Neutrophils # (Auto) 3.8 TH/MM3 3.8 TH/MM3 Lymphocytes # (Auto) 0.8 TH/MM3 1.1 TH/MM3 Monocytes # (Auto) 0.3 TH/MM3 0.2 TH/MM3 Eosinophils # (Auto) 0.2 TH/MM3 0.2 TH/MM3 Basophils # (Auto) 0.0 TH/MM3 0.0 TH/MM3 CBC Comment DIFF FINAL DIFF FINAL Differential Comment Prothrombin Time 10.1 SEC 9.9 SEC Prothromb Time International Ratio 1.0 RATIO 1.0 RATIO Blood Urea Nitrogen 16 MG/DL Creatinine 1.35 MG/DL Random Glucose 237 MG/DL Calcium Level 8.7 MG/DL Magnesium Level 1.9 MG/DL Sodium Level 138 MEQ/L Potassium Level 4.0 MEQ/L Chloride Level 104 MEQ/L Carbon Dioxide Level 24.4 MEQ/L Anion Gap 10 MEQ/L Estimat Glomerular Filtration Rate 48 ML/MIN Objective Remarks General: NAD, AAOx3 Chest: CTA Cardiac: Regular Abd: +BS, soft ND/NT Ext: No edema A/P Problem List: (1) Anemia ICD Codes: D64.9 - Anemia, unspecified Status: Acute Plan: Anemia GIB, hemoccult positive stool Recent CVA on anticoagulation with Coumadin - Pt is a 67 y/o AAF with chronic kidney disease stage 3, diabetes mellitus type 2, hypothyroidism, hyperlipidemia, sickle cell trait, and 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 Pt had previously been on Eliquis after her CVA. One month ago she was admitted for changes in her speech and was found to have had another acute CVA. Pt was seen by Neurology and felt to have failed Eliquis and was started on Coumadin. She had previously been on Coumadin 10mg and 7.5mg on at the time of her discharge from her recent hospitalization. - Pt had outpt labs on 08/02 which noted supra-therapeutic INR of 5.2 and she was noted to be anemic with Hgb 8.8. Pt was to hold her Coumadin for 2 days and then continue just on 7.5mg po daily. She reports that over the last few days she has had increased weakness and had a difficult time doing light housework around the house yesterday. She saw her PCP today who sent her for repeat labs today and then to the ED for further evaluation. - Her labs at admission noted Hgb 4.7/Hct 14.5. In the ED the pt was noted to be guaiac positive with noted melanotic stool. - INR at admission was 3.3 - Previous colonoscopy 09/13/[address] Gonzalez noted sessile polyp in the sigmoid colon, diminutive polyp in the rectum, small internal hemorrhoids. - Pt was ordered transfusion with 2 units PRBCs and 6 units of FFP from the ED - GI consult is following. - Pt was given 2 more units of PRBCs on 08/10. - Pt underwent EGD/colonoscopy on 08/11 --> erythematous gastritis in the gastric antrum, duodenal inflammation was found in the bulb and second portion of the duodenum, a sessile polyp ranging between 3-5mm in size was found in the sigmoid colon, internal/external hemorrhoids - Hgb stable at 10.2 on 08/15 - Protonix changed to po on 08/12 - Supportive care - Further recommendations as the case develops Recent CVA - Pt had been on Eliquis previously but was found to have had an acute CVA in 06/2017 - Pt was changed to Coumadin during that admission in 06/2017 - Pt was given 6 units of FFP by ED - INR 1.0 on 08/15 -> 1.0 08/16 - Coumadin 7.5mg po daily resumed on 08/14 and observe for a few days to assure no recurrent bleed. - 08/16 increased Coumadin to 10 mg today - recheck INR and CBC in AM - This is a difficult situation as pt high risk for CVA and will be at ongoing risk for bleeding. Diabetes mellitus - Hold home meds for now - NovoLog SSI - Accu checks HTN - Monitor Hypothyroidism - Home meds continued 08/16 patient very much wants to go home. She does not like the hospital food or the bed. Patient agrees to stay one more night but makes it clear that patient she wants to go home tomorrow regardless of INR value. (2) GI bleed ICD Codes: K92.2 - Gastrointestinal hemorrhage, unspecified Status: Acute (3) CVA (cerebral vascular accident) ICD Codes: I63.9 - Cerebral infarction, unspecified Status: Acute (4) Diabetes mellitus type 2, insulin dependent ICD Codes: E11.9 - Diabetes mellitus type 2, insulin dependent; Z79.4 - intermediate (current) use of insulin Status: Chronic (5) Hypertension, benign ICD Codes: I10 - Hypertension, benign Status: Acute (6) Hypothyroidism ICD Codes: E03.9 - Hypothyroidism Status: Chronic Assessment and Plan Patient examined. Assessment and plan formulated with Carola Smith PA-C. I agree with the above. Problem Qualifiers (1) Anemia: Qualified Codes: D64.9 - Anemia, unspecified (2) GI bleed: Qualified Codes: K92.2 - Gastrointestinal hemorrhage, unspecified Carola Smith Aug 16, 2017 11:36 Prince Kaba DO Aug 21, 2017 10:25
[2017-08-16 12:00] VITALS: BP 158/61; PULSE 86; RESP 16; TEMP 96.6; O2SAT 99
[2017-08-16 16:00] VITALS: BP 146/71; PULSE 74; RESP 17; TEMP 96.4; O2SAT 99
[2017-08-16] MEDS ORDERED: WARFARIN SOD 10 MG TAB PO ONE (18:00)
[2017-08-16 20:00] VITALS: BP 136/62; PULSE 82; RESP 18; TEMP 97.3; O2SAT 95
[2017-08-16] MEDS: LATANOPROST 0.005% OPHT SOLN 2.5 ML BTL EACH EYE SCH (20:50)
[2017-08-17] VITALS: BP 122/56; PULSE 77; RESP 18; TEMP 97.1; O2SAT 98
[2017-08-17] MEDS: INSULIN ASPART SUPPLEMENTAL SCALE SQ SCH ×4 (00:23→12:45)
[2017-08-17] MEDS: LEVOTHYROXINE SODIUM 112 MCG TAB PO SCH (04:09)
[2017-08-17 06:55] LABS: INTERNATIONAL NORMALIZED RATIO 1.1 RATIO; PROTHROMBIN TIME - PATIENT 11.4 SEC (9.8-11.6)
[2017-08-17 08:00] VITALS: BP 158/83; PULSE 70; RESP 18; TEMP 97.5; O2SAT 98
[2017-08-17] MEDS: FLUTICASONE PROPIONATE 50 MCG/ACT 16 GM NASAL SPRAY EACH NARE SCH (08:24)
[2017-08-17] MEDS: PANTOPRAZOLE SOD 40 MG DELAYED RELEASE TAB PO SCH (08:24)
[2017-08-17] MEDS ORDERED: PANT40TA3 PO (08:36)
--- NOTE | 2017-08-17 08:38 | HHI.DCPOC ---
Discharge Care Plan Diagnosis: (1) GI bleed (2) Anemia (3) CVA (cerebral vascular accident) Goals to Promote Your Health * To prevent worsening of your condition and complications * To maintain your health at the optimal level Directions to Meet Your Goals Take your medications as prescribed Follow your dietary instruction Follow activity as directed Keep your appointments as scheduled Take your immunizations and boosters as scheduled If your symptoms worsen call your PCP, if no PCP go to Urgent Care Center or Emergency Room Smoking is Dangerous to Your Health. Avoid second hand smoke Call the 24-hour hour crisis hotline for domestic abuse at Carola Smith Aug 17, 2017 08:38 Prince Kaba DO Aug 21, 2017 10:27
--- NOTE | 2017-08-17 08:39 | HHI.FF ---
Face to Face Verification Diagnosis: (1) GI bleed (2) Anemia (3) CVA (cerebral vascular accident) Home Health Nursing Order: Medical education Nursing assessment with vital signs Instructions: daily INR with results to PCP Dr. Judi Rizzo CBC Monday08/21/[address] Rizzo I have seen patient Shelia Rangel on 08/17/17. My clinical findings support the need for the requested home health care services because: Med compliance is questionable Limited ability to care for self I certify that my clinical findings support that this patient is homebound because: Unable to use public transportation Carola Smith Aug 17, 2017 08:39
[2017-08-17 09:02] LABS: AUTOMATED NEUTROPHIL # 4.2 TH/MM3 (1.8-7.7); BASOPHIL # 0.1 TH/MM3 (0-0.2); BASOPHIL % 0.9 % (0.0-2.0); EOSINOPHIL # 0.2 TH/MM3 (0-0.4); EOSINOPHIL % 3.5 % (0.0-4.0); HEMATOCRIT 33.6 % (35.0-46.0); HEMOGLOBIN 11.8 GM/DL (11.6-15.3); LYMPHOCYTE # 1.4 TH/MM3 (1.0-4.8); MEAN CELL VOLUME 87.5 FL (80.0-100.0); MEAN CORPUSCULAR HEMOGLOBIN 30.8 PG (27.0-34.0); MEAN CORPUSCULAR HGB CONC 35.2 % (32.0-36.0); MEAN PLATELET VOLUME 9.9 FL (7.0-11.0); MONO % 4.7 % (0.0-8.0); MONOCYTE # 0.3 TH/MM3 (0-0.9); NEUT % 68.9 % (16.0-70.0); PLATELET COUNT 161 TH/MM3 (150-450); RED BLOOD COUNT 3.84 MIL/MM3 (4.00-5.30); RED CELL DISTRIBUTION WIDTH 14.2 % (11.6-17.2); WHITE BLOOD COUNT 6.2 TH/MM3 (4.0-11.0)
[2017-08-17 12:00] VITALS: BP 130/69; PULSE 75; RESP 17; TEMP 97.1; O2SAT 98
--- NOTE | 2017-08-17 12:51 | HHI.DS ---
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 Vazquez, GI Procedures Pt underwent EGD/colonoscopy on 08/11 --> erythematous gastritis in the gastric antrum, duodenal inflammation was found in the bulb and second portion of the duodenum, a sessile polyp ranging between 3-5mm in size was found in the sigmoid colon, internal/external hemorrhoids with Dr. Vazquez Brief History Ms. 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 Pt had previously been on Eliquis after her CVA. One month ago she was admitted for changes in her speech and was found to have had another acute CVA. Pt was seen by Neurology and felt to have failed Eliquis and was started on Coumadin. She had previously been on Coumadin 10mg and 7.5mg on at the time of her discharge from her recent hospitalization. Pt had outpt labs on 08/02 which noted supra- therapeutic INR of 5.2 and she was noted to be anemic with Hgb 8.8. Pt was to hold her Coumadin for 2 days and then continue just on 7.5mg po daily. She reports that over the last few days she has had increased weakness and had a difficult time doing light housework around the house yesterday. She saw her PCP who sent her for repeat labs today and then to the ED for further evaluation. Her labs at admission noted Hgb 4.7/Hct 14.5. She denies any noted melena or BRBPR and no change in her bowel movements recently. In the ED the pt was noted to be guaiac positive with noted melanotic stool. She denies any dizziness or lightheadedness. Pt reports that she was supposed to be seen at [facility] this coming Monday for evaluation of anemia. Previous colonoscopy 09/13/[address] Gonzalez noted sessile polyp in the sigmoid colon, diminutive polyp in the rectum, small internal hemorrhoids. She denies any hx of ulcers. She takes ASA 81mg po daily but denies any other NSAID use. She has used Tylenol occasionally. Denies any GERD or dysphagia. She had some nausea today but no vomiting. Denies any abdominal pain, constipation or diarrhea. Denies any chest pain, SOB or palpitations. CBC/BMP: 08/17/17 0825 08/16/17 0724 Significant Findings Laboratory Tests Test 08/15/17 05:41 08/16/17 07:24 08/17/17 05:08 08/17/17 08:25 Red Blood Count 3.35 MIL/MM3 (4.00-5.30) 3.70 MIL/MM3 (4.00-5.30) 3.84 MIL/MM3 (4.00-5.30) Hemoglobin 10.2 GM/DL (11.6-15.3) 11.5 GM/DL (11.6-15.3) Hematocrit 29.7 % (35.0-46.0) 32.5 % (35.0-46.0) 33.6 % (35.0-46.0) Platelet Count 136 TH/MM3 (150-450) Neutrophils (%) (Auto) 74.1 % (16.0-70.0) 71.6 % (16.0-70.0) Lymphocytes # (Auto) 0.8 TH/MM3 (1.0-4.8) Creatinine 1.35 MG/DL (0.50-1.00) Random Glucose 237 MG/DL (74-106) Estimat Glomerular Filtration Rate 48 ML/MIN (>89) PE at Discharge General: NAD, AAOx3 Chest: CTA Cardiac: Regular Abd: +BS, soft ND/NT Ext: No edema Hospital Course Anemia GIB, hemoccult positive stool Recent CVA on anticoagulation with Coumadin - Pt is a 67 y/o AAF with chronic kidney disease stage 3, diabetes mellitus type 2, hypothyroidism, hyperlipidemia, sickle cell trait, and 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 Pt had previously been on Eliquis after her CVA. One month ago she was admitted for changes in her speech and was found to have had another acute CVA. Pt was seen by Neurology and felt to have failed Eliquis and was started on Coumadin. She had previously been on Coumadin 10mg and 7.5mg on at the time of her discharge from her recent hospitalization. - Pt had outpt labs on 08/02 which noted supra-therapeutic INR of 5.2 and she was noted to be anemic with Hgb 8.8. Pt was to hold her Coumadin for 2 days and then continue just on 7.5mg po daily. She reports that over the last few days she has had increased weakness and had a difficult time doing light housework around the house yesterday. She saw her PCP today who sent her for repeat labs today and then to the ED for further evaluation. - Her labs at admission noted Hgb 4.7/Hct 14.5. In the ED the pt was noted to be guaiac positive with noted melanotic stool. - INR at admission was 3.3 - Previous colonoscopy 09/13/[address] Gonzalez noted sessile polyp in the sigmoid colon, diminutive polyp in the rectum, small internal hemorrhoids. - Pt was ordered transfusion with 2 units PRBCs and 6 units of FFP from the ED - GI consult is following. - Pt was given 2 more units of PRBCs on 08/10. - Pt underwent EGD/colonoscopy on 08/11 --> erythematous gastritis in the gastric antrum, duodenal inflammation was found in the bulb and second portion of the duodenum, a sessile polyp ranging between 3-5mm in size was found in the sigmoid colon, internal/external hemorrhoids - Hgb stable at 10.2 on 08/15 - Protonix changed to po on 08/12 - Supportive care - Further recommendations as the case develops Recent CVA - Pt had been on Eliquis previously but was found to have had an acute CVA in 06/2017 - Pt was changed to Coumadin during that admission in 06/2017 - Pt was given 6 units of FFP by ED - INR 1.0 on 08/15 -> 1.0 08/16 - Coumadin 7.5mg po daily resumed on 08/14 and observe for a few days to assure no recurrent bleed. - 08/16 increased Coumadin to 10 mg today - This is a difficult situation as pt high risk for CVA and will be at ongoing risk for bleeding. Diabetes mellitus - Hold home meds for now - NovoLog SSI - Accu checks HTN - Monitor Hypothyroidism - Home meds continued patient very much wants to go home. She does not like the hospital food or the bed. Patient understands risks of DC before INR therapeutic and continues to refuse to stay in the hospital any longer. Will DC patient with Coumadin 10 mg x 2 additional days then return to her 7.5 mg daily. Plan to [facility] requested for daily INR monitoring with results to PCP Dr. Judi Rizzo. Patient refused HHC. Patient to have daily PT/INR at lab and CBC on Monday 08/[address] Judi Rizzo. Dr. Kaba will discuss the case with Dr. Rizzo. Pt Condition on Discharge: Stable Discharge Disposition: Discharge Home Discharge Instructions DIET: Follow Instructions for: Coumadin (Warfarin) Diet Activities you can perform: Regular-No Restrictions Follow up Referrals: Gastroenterology - 2 Weeks with Carmela Vazquez MD PCP Follow-up - [address] Rizzo New Medications: Pantoprazole (Pantoprazole) 40 Mg Tab 40 MG PO Q12HR for stomach acid, #60 TAB 0 Refills Continued Medications: Aspirin DR (Aspirin EC) 81 Mg Tabdr 81 MG PO DAILY, TAB 0 Refills Atorvastatin (Atorvastatin) 80 Mg Tab 80 MG PO HS for Cholesterol Management, #30 TAB 0 Refills Cholecalciferol (Vitamin D3) 1,000 Unit Tab 1000 UNITS PO DAILY for Nutritional Supplement, #1 BOTTLE 0 Refills Fluticasone Nasal [place] (Fluticasone Nasal [place]) 50 Mcg/Act Naspr 50 MCG EACH NARE DAILY for Allergy Management, #1 BOTTLE 0 Refills 50 mcg/spray Insulin Aspart Inj (Novolog Flexpen Inj) 300 Unit/3 Ml Pen 10 UNITS SQ TIDAC for Blood Sugar Management, #1 PEN 0 Refills Insulin Degludec Inj (Tresiba Flextouch Pen Inj) 300 unit/3 ML Pen 78 UNITS SQ DAILY for Blood Sugar Management, #15 ML 0 Refills Latanoprost Opth Drops (Latanoprost Opth Drops) 0.005% Drops 1 DROP EACH EYE HS for Glaucoma, #2.5 ML 0 Refills Refrigerate until opened. Levothyroxine (Levothyroxine) 112 Mcg Tab 112 MCG PO DAILY for Thyroid, #30 TAB 0 Refills Metformin (Metformin) 500 Mg Tab 500 MG PO DAILY for Blood Sugar Management, #30 TAB 0 Refills With a meal Multiple Vitamin (Multiple Vitamin) 1 Tab 1 TAB PO DAILY for Nutritional Supplement, TAB 0 Refills Pioglitazone (Pioglitazone) 15 Mg Tab 15 MG PO DAILY for Blood Sugar Management, #30 TAB 0 Refills Propylene Glycol-Glycerin Opth Drops (Artificial Tears Opth Drops) 1-0.3% Drops 1-2 DROP EACH EYE PRN PRN for DRY EYE, #15 ML 0 Refills Warfarin (Warfarin) 7.5 Mg Tab 7.5 MG PO DAILY for cva for 30 Days, #30 TAB 0 Refills Additional Information Patient examined. Assessment and plan formulated with Carola Smith PA-C. I agree with the above. Carola Smith Aug 17, 2017 12:51 Prince Kaba DO Aug 21, 2017 10:26
[2017-08-17] MEDS ORDERED: COUM10TA PO (12:53)
== END 2017-08-17 15:51 | disposition home or self-care (01) | DRG 813 ==
LOC: NEPE 12:14 → NEDA 16:34 → N07A 18:35
PROVIDERS: ADMIT Hospitalist; ATTEND Hospitalist
PROC: 30233K1 Transfusion of Nonautologous Frozen Plasma into Peripheral Vein, Percutaneous Approach (ICD-10-PCS; 2017-08-09)
PROC: 30233N1 Transfusion of Nonautologous Red Blood Cells into Peripheral Vein, Percutaneous Approach (ICD-10-PCS; 2017-08-09)
PROC: 0DBN8ZX Excision of Sigmoid Colon, Via Natural or Artificial Opening Endoscopic, Diagnostic (ICD-10-PCS; principal; 2017-08-11 12:51)
PROC: 0DB78ZX Excision of Stomach, Pylorus, Via Natural or Artificial Opening Endoscopic, Diagnostic (ICD-10-PCS; 2017-08-11 12:51)
DX: D68.32 Hemorrhagic disorder due to extrinsic circulating anticoagulants (principal); K29.51 Unspecified chronic gastritis with bleeding; K29.81 Duodenitis with bleeding; I50.9 Heart failure, unspecified; I13.0 Hypertensive heart and chronic kidney disease with heart failure and stage 1 through stage 4 chronic kidney disease, or unspecified chronic kidney disease; I69.351 Hemiplegia and hemiparesis following cerebral infarction affecting right dominant side; E11.22 Type 2 diabetes mellitus with diabetic chronic kidney disease; N18.3 Chronic kidney disease, stage 3 (moderate); D57.3 Sickle-cell trait; E78.5 Hyperlipidemia, unspecified; E03.9 Hypothyroidism, unspecified; D50.0 Iron deficiency anemia secondary to blood loss (chronic); I25.10 Atherosclerotic heart disease of native coronary artery without angina pectoris; D12.5 Benign neoplasm of sigmoid colon; K64.4 Residual hemorrhoidal skin tags; K64.8 Other hemorrhoids; T45.515A Adverse effect of anticoagulants, initial encounter; M15.9 Polyosteoarthritis, unspecified; Z79.01 Long term (current) use of anticoagulants; Z79.4 Long term (current) use of insulin
CPT/HCPCS: 36430; 76937; 80048; 80053; 82948; 83735; 85007; 85014; 85018; 85025; 85027; 85610; 85730; 86850; 86900; 86901; 86920; 86927; 88305; 88312; 96361; 96365; 96368; C9113; J1815; J7042; J7050; P9016; P9017